=== PATIENT | male | born 1945 | race Caucasian/White ===

== ENCOUNTER 2016-08-26 09:05 | Emergency (ER) | payer OTHER ==
[2016-08-26 09:31] VITALS: RESP 18; TEMP 97.3
[2016-08-26] MEDS ORDERED: Sodium Chloride 0.9% 1,000 ML PRIMARY IV ONE (09:35)
[2016-08-26] MEDS ORDERED: NORMAL SALINE 10 ML SYRINGE FLUSH IVP PRN (09:35)
--- NOTE | 2016-08-26 09:45 | PDOC ---
General Adult HPI - General Chief Complaint: Nausea / Vomiting / Diarrhea Stated Complaint: DIARRHEA Date Seen by Provider: 08/26/16 Time Seen by Provider: 09:30 Source: POSITIVE: Patient Exam Limitations: POSITIVE: No limitations Nurse's Notes Reviewed & Considered: Yes - History of Present Illness Initial Comment: The patient is a 71-year-old male who presents to the emergency department with worsening diarrhea, abdominal pain and significant weight loss. He reports for the past year or so he has had problems with loose stool and diarrhea. He also has had a markedly diminished appetite. He states anytime he eats or drinks anything he has pain primarily in the left upper quadrant and then usually has significant diarrhea. He has been worked up for this some as an outpatient however at this point had not agreed to pursue an upper/lower GI. He has had several rounds of blood work. He thought initially that the symptoms were related to some of the medications that he was taking and some of these were discontinued and cut back. He currently takes metoprolol and lisinopril for blood pressure and metformin 500 mg twice a day for diabetes. He admits that he does not check his blood sugars at home. His last hemoglobin A1c last week was 6.1. He does report taking a baby aspirin daily. For the past couple of weeks he has been taking a probiotic. He has noticed that his stool has been darker since starting on that. He denies any associated urinary symptoms. He has not had any associated nausea or vomiting. He has had previous appendectomy a long time ago. Denies any other abdominal surgeries. He does not have any known history of ulcers or gastritis. He states that he previously drank a large amount of soda including Mountain Dew however has discontinued use of soda for the past 6 months or so. Since onset of the symptoms he has lost approximately 130 pounds stating that he previously weighed about 280. He denies any fevers or chills, chest pain or shortness of breath or neurologic symptoms. He does report increased generalized weakness and fatigue however denies lightheadedness. Have you received a tetanus shot in the past 10 years?: Yes - Patient Home Medications Home Medications: Home Medications Aspirin [Aspir 81] 81 mg PO DAILY tab 12/14/14 Lisinopril 40 mg PO QD #90 tab 06/26/16 Metformin HCl 1 tab PO BID #180 tab 06/26/16 - Patient Allergies Allergies/Adverse Reactions: Allergies Allergy/AdvReac Type Severity Reaction Status Date / Time No Known Allergies Allergy Verified 08/26/16 09:20 Past Medical History - heen HEENT History: Denies History Cardiovascular History: Hypertension, Arrhythmia, Hyperlipidemia, Other (please comment) Additional Cardiovasular History: AFIB Respiratory History: Denies History Gastrointestinal History: Other (please comment) Additional Gastrointestinal History: CHRONIC DIARRHEA FOR CLOSE TO ONE YEAR Genitourinary History: Denies History Endocrine History: Type 2 Diabetes (oral) Musculoskeletal History: Other (please comment) Additional Musculoskeletal History: SH[place]PNEL FROM [place] Neurological History: Denies History Blood Disorders: Denies History Psychiatric History: Denies History History of Sexually Transmitted Diseases: No Male Reproductive History: Denies History Cancer History: Denies History In Past Year Been Physically Harmed or Verbally Threatened: No History of MDRO: No Tobacco Use: Never Smoker Alcohol Use: None Substance Use Type: None Previous Surgical History: Yes Type / Date of Surgery: APPY. TONSILS AND ADENOIDS Significant Family History: No pertinent family hx Past Medical History Reviewed: Reviewed - No Changes ROS - Limitations ROS Limitations: No Limitations Constitution: REPORTS: Weakness (Generalized), Weight Loss (130 pound weight loss over the past year). DENIES: Chills, Fever Cardiovascular: DENIES: Chest Pain, Heart Palpitations, Edema Respiratory: REPORTS: Denies Resp Symptoms Neurological: REPORTS: Denies Neuro Symptoms Gastrointestinal: REPORTS: Abdominal Pain, Nausea, Diarrhea, Black Stools ( Darker stools the past couple of weeks). DENIES: Vomitting, Bloody Stools Endocrine: REPORTS: Fatigue Musculoskeletal: REPORTS: Denies MS Symptoms Genitourinary: REPORTS: Denies Symptoms Eyes: REPORTS: Denies Symptoms ENT: REPORTS: Denies Symptoms Skin: DENIES: Rash General Adult Exam - General Appearance General Appearance: POSITIVE: Alert, Cooperative, No Acute Distress - HEENT HEENT: POSITIVE: Head Inspection Nml, Eyes Inspection Nml, Ears Inspection Nml, Pharynx Inspect. Nml, Dry Mucous Membranes - Neck Neck: POSITIVE: Normal Inspection, Lymphadenopathy - Respiratory Respiratory: POSITIVE: No Respiratory Distress, Breath Sounds Normal - Cardiovascular Cardiovascular: POSITIVE: Regular Rate & Rhythm, No Murmur Peripheral Pulses: Dorsalis-pedis (R): 2+, Dorsalis-pedis (L): 2+ - Abdomen Abdomen: Soft: (All Quadrants), No Guarding: (All Quadrants), No Rebound: (All Quadrants), No Palpabale Mass: (All Quadrants), No Distention: (All Quadrants) Additional Abdominal Details: He does have some tenderness in the left upper quadrant without guarding or rebound tenderness, no palpable mass - Back Back: POSITIVE: Normal Inspection - Skin Skin: POSITIVE: Normal Color, No Rash - Extremities Extremity: Normal ROM: (All Extremities), Normal Inspection: (All Extremities) - Neurological / Psychological Neurological: 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 He also has incidental cholelithiasis per radiologist. Lab Results Reviewed: Yes Lab Results:: Laboratory Results 08/26/16 Range/Units 09:53 WBC 10.22 (4.8-10.8) 10^3/uL RBC 4.57 L (4.70-6.10) 10^6/uL Hgb 12.6 L (14.0-18.0) g/dL Hct 38.8 L (42.0-52.0) % MCV 84.9 (80-90) FL MCH 27.6 (27-31) PG MCHC 32.5 L (33-37) g/dL RDW Std Deviation 44.0 (39-50) fL RDW Coeff of Antonio 14.5 (11.5-14.5) % Plt Count 173 (140-350) 10*3/uL MPV 10.7 (7.4-12.2) FL Immature Gran % (Auto) 0.2 (0-5) % Neut % (Auto) 76.6 (50-80) % Lymph % (Auto) 16.4 (10-50) % [place] % (Auto) 6.2 (5-15) % Eos % (Auto) 0.3 (0-8) % Baso % (Auto) 0.3 (0-1) % Immature Gran # (Auto) 0.02 10*3/UL Neut # (Auto) 7.83 10*3/UL Lymph # (Auto) 1.68 10*3/uL [place] # (Auto) 0.63 (0.3-0.8) 10*3/UL Eos # (Auto) 0.03 10*3/UL Baso # (Auto) 0.03 10*3/UL WBC Morphology Comment Normal morphology (NORM) Plt Morphology Comment Normal morphology (NORM) RBC Morph Comment Normal morphology (NORM) Sodium 143 (135-145) meq/L Potassium 3.3 L (3.8-5.2) meq/L Chloride 103 (98-112) meq/L Carbon Dioxide 27 (23-33) meq/L Anion Gap 13 (5-20) BUN 17 (7-22) mg/dL Creatinine 0.9 (0.70-1.50) mg/dL Estimated GFR > 60 (>60 ml/min/1.73m(2)) BUN/Creatinine Ratio 18.88 (6-20) Glucose 137 H (78-110) mg/dL Calculated Osmolality 299.0 H (267-292) mOsm/kg Calcium 9.5 (8.7-10.7) mg/dL Magnesium 1.8 (1.6-2.4) mg/dL Total Bilirubin 1.3 H (0.3-1.2) mg/dL AST 20 L (21-57) IU/L ALT 25 (21-72) IU/L Alkaline Phosphatase 185 H (38-126) IU/L C-Reactive Protein 5.6 H (0.0-0.9) mg/dL Total Protein 8.3 H (6.1-8.0) g/dL Albumin 4.0 (3.5-4.8) g/dL Globulin 4.3 H (2.50-4.10) g/dL Albumin/Globulin Ratio 0.90 L (1.3-2.0) mg/g Amylase 38 (30-110) U/L Lipase 101 (23-300) IU/L - Patient's Progress MDM / ED Course: An IV was established and he did receive a 1 L bolus of normal saline as well as Protonix [address] and laboratory findings were discussed with the patient and his family. Unfortunately the CT scan of his abdomen and pelvis reveals a fairly large mass in the distal sigmoid colon as well as multiple lesions in the liver concerning for metastatic colon cancer. Dr. Jeter was consulted and evaluated the patient here in the emergency room and made arrangements for him to have endoscopy tomorrow for biopsy/definitive diagnosis. The patient is advised return to the emergency room if he develops increased abdominal pain, vomiting, fever, blood in the stool, any worsening or change in symptoms. Return to the hospital tomorrow for flexible sigmoidoscopy with Dr. Jeter as per his instructions. - Consult Counseled: POSITIVE: Patient, Family, RE: Lab Results, RE: Radiology Results, RE : DX, RE: Need for F/U Patient Care Time - Estimated PCT Patient Care Time (In Minutes): 50 Vital Signs - Recent Vital Signs Vital Signs: Vital Signs (Last 8 hours) Temp Pulse Resp BP Pulse Ox 08/26/16 09:23 97.3 F 81 18 149/101 96 - VS Reviewed Vital Signs Reviewed: Yes Discharge Clinical Impression: Diarrhea, Weight loss, Mass of colon Condition: Fair Patient Instructions Given at Discharge: Chronic Diarrhea (ED) Additional Instructions: The CAT scan done today of the abdomen and pelvis does reveal a mass in the lower part of the colon with multiple lesions seen in the liver as well. Most likely this represents a colon cancer with spread to the liver however definitive diagnosis will only come after biopsy. Return for flexible sigmoidoscopy per Dr. Jeter's instruction tomorrow. Return to the emergency room if increased abdominal pain, vomiting, fever, dehydration, blood in the stool, any worsening or change in symptoms. Follow Up With: LAM HUANG [Primary Care Provider] -
[2016-08-26 09:57] LABS: BASOPHILS # (AUTO) 0.03 10*3/UL; BASOPHILS % (AUTO) 0.3 % (0-1); EOSINOPHILS % (AUTO) 0.3 % (0-8); HEMATOCRIT 38.8 % (42.0-52.0); HEMOGLOBIN 12.6 g/dL (14.0-18.0); IMM GRAN % (AUTO) 0.2 % (0-5); IMM GRAN# (AUTO) 0.02 10*3/UL; LYMPHOCYTES # (AUTO) 1.68 10*3/uL; LYMPHOCYTES % (AUTO) 16.4 % (10-50); MEAN CORPUSCULAR HEMOGLOBIN 27.6 PG (27-31); MEAN CORPUSCULAR HGB CONC 32.5 g/dL (33-37); MEAN PLATELET VOLUME 10.7 FL (7.4-12.2); MONOCYTES # (AUTO) 0.63 10*3/UL (0.3-0.8); MONOCYTES % (AUTO) 6.2 % (5-15); NEUTROPHILS # (AUTO) 7.83 10*3/UL; NEUTROPHILS % (AUTO) 76.6 % (50-80); RDW COEFFICIENT OF VARIATION 14.5 % (11.5-14.5); RED BLOOD COUNT 4.57 10^6/uL (4.70-6.10); WHITE BLOOD COUNT 10.22 10^3/uL (4.8-10.8)
[2016-08-26] MEDS: Pantoprazole Inj 40 MG in Normal Saline Flush 10 ML IVP ONE ×2 (09:57→12:22)
[2016-08-26 10:09] LABS: PLATELET MORPHOLOGY COMMENT NORMAL MORPHOLOGY (NORM)
[2016-08-26 10:12] LABS: AMYLASE 38 U/L (30-110); ASPARTATE AMINO TRANSFERASE 20 IU/L (21-57); BILIRUBIN,TOTAL 1.3 mg/dL (0.3-1.2); BLOOD UREA NITROGEN 17 mg/dL (7-22); BUN/CREATININE RATIO 18.88 (6-20); C-REACTIVE PROTEIN 5.6 mg/dL (0.0-0.9); CALCIUM 9.5 mg/dL (8.7-10.7); CHLORIDE 103 meq/L (98-112); CREATININE 0.9 mg/dL (0.70-1.50); EST GLOMERULAR FILTRATION > 60 (>60 ml/min/1.73m(2)); GLUCOSE 137 mg/dL (78-110); MAGNESIUM 1.8 mg/dL (1.6-2.4); POTASSIUM 3.3 meq/L (3.8-5.2); SODIUM 143 meq/L (135-145); TOTAL PROTEIN 8.3 g/dL (6.1-8.0)
--- NOTE | 2016-08-26 11:12 | DI ---
CT ABD W/CN AND PELVIS W/CN,08/26/2016 9:36 AM: Clinical History: Abdominal pain, diarrhea and 130 pound weight loss Previous Exam: None at this facility. Findings: Multiple helically acquired CT images are obtained through the abdomen and pelvis following the admin istration of 75 cc of Isovue 300, and demonstrate multiple hepatic lesions consistent with metastatic disease. There are multiple stones within the gallbladder. There is a simple cyst involving the inferior pole of the right kidney. Left kidney is normal. The ad renals and pancreas are normal. The spleen is also normal. The lung bases are clear. There is a large mass within the distal sigmoid colon and a large amount of stool throughout the prox imal colon. The urinary bladder is unremarkable. Skeletal structures are also unremarkable. Impression: Large mass within the distal sigmoid colon with multiple hepatic metastases. This is most consistent with metastatic colon cancer. Cholelithiasis.
--- NOTE | 2016-08-26 12:30 | MINORPROC ---
Outpatient History & Physical Chief Complaint: Patient's had 120 pound weight loss over last year. Also having diarrhea. Present Illness: Patient has significant weight loss. He's also been having loose stools over a year. Patient had a CT scan that shows metastatic liver disease with a mass in the sigmoid rectum area. This is near obstructing. Past History: Hypertension, diabetes History: General: WNL, HEENT: WNL, Respiratory: WNL, Cardiovascular: WNL Physical Exam: General: WNL, Heart: WNL, Abdomen: WNL Home Medications: Home Medications Medication Instructions Recorded Confirmed Type Aspirin [Aspir 81] 81 mg PO DAILY tab 12/14/14 08/26/16 History Lisinopril 40 mg PO QD #90 tab 06/26/16 08/26/16 Clinic Metformin HCl 1 tab PO BID #180 tab 06/26/16 08/26/16 Clinic Allergies/Adverse Reactions: Allergies Allergy/AdvReac Type Severity Reaction Status Date / Time No Known Allergies Allergy Verified 08/26/16 09:20 Impression / Plan: The patient will need a colonoscopy. The risks of the procedure and benefits were discussed with the patient. I have discussed the pathophysiology between polyps and colon cancer. I also discussed the reasons why we use a colonoscopy for screening method versus the other screening methods are available. The patient like to proceed with a colonoscopy, The procedure reset up at first available date. Transfusion: Transfusion Not Anticipated Anesthesia Plans: None ASA Class: Class 4 :Severe Systemic Disease a Constant Threat to Life
[2016-08-28 14:05] LABS: PARASITIC EXAM FIN 1143 (())
== END 2016-08-26 11:22 | disposition home or self-care (01) ==
LOC: ER 09:05
DX: C18.9 Malignant neoplasm of colon, unspecified (principal); R63.4 Abnormal weight loss; R10.12 Left upper quadrant pain; R19.7 Diarrhea, unspecified; R53.1 Weakness; E11.9 Type 2 diabetes mellitus without complications
CPT/HCPCS: 74177; 80053; 82150; 83690; 83735; 85025; 86140; 87046; 87177; 87209; 87328; 87329; 87493; 96361; 96374; 99283; J3490; J7030

== ENCOUNTER 2016-08-27 10:20 | Day surgery (SDC) | payer OTHER ==
[~2016-08-27 10:20] MED LIST: Fleet Enema 133ml RECTAL ONE; LIDOCAINE W/ SODIUM BICARB 0.5 ML SYR ONE; Lactated Ringers 0 ML PRIMARY IV ONE
[2016-08-27 11:06] VITALS: RESP 16
[2016-08-27] MEDS ORDERED: LIDOCAINE W/ SODIUM BICARB 0.5 ML SYR ONE (11:11)
[2016-08-27] MEDS ORDERED: Lactated Ringers 1,000 ML PRIMARY IV ONE (11:12)
--- NOTE | 2016-08-27 11:39 | GEN.OPNOTE ---
Colonoscopy Procedure Note Surgery Date: 08/27/16 Preoperative Diagnosis: Metastatic colon cancer Postoperative Diagnosis: Metastatic rectal cancer Procedure: Flexible sigmoidoscopy with biopsies Surgeon: Abdullahi Jetre MD Anesthesia Type: None Indications: Patient comes in with weight loss and diarrhea. CT scan shows a rectal mass and metastatic liver disease Findings: Rectum : Patient has a mass that edges at 12 cm maker rectal mass. This is a circumferential lesion I never could really identify a lumen because of the bulkiness of the tumor. Biopsies taken Digital Rectal Exam : Patient has what appears be a rectal stricture
[2016-08-27 12:55] VITALS: TEMP 97.5
== END 2016-08-27 12:20 | disposition home or self-care (01) ==
LOC: SDSC 10:20
PROVIDERS: ATTEND Surgery
DX: C18.7 Malignant neoplasm of sigmoid colon (principal); D12.7 Benign neoplasm of rectosigmoid junction; R63.4 Abnormal weight loss; R19.7 Diarrhea, unspecified
CPT/HCPCS: 36415; 82378; 82565; J7120

== ENCOUNTER 2016-08-31 12:25 | Inpatient (IN) | payer OTHER ==
[2016-08-31] MEDS ORDERED: Sodium Chloride 0.9% 1,000 ML PRIMARY IV ONE ×2 (13:02→15:20)
[2016-08-31] MEDS ORDERED: NORMAL SALINE 10 ML SYRINGE FLUSH IVP PRN ×2 (13:02→17:39)
[2016-08-31 13:35] LABS: BASOPHILS # (AUTO) 0.02 10*3/UL; BASOPHILS % (AUTO) 0.1 % (0-1); EOSINOPHILS % (AUTO) 0 % (0-8); HEMATOCRIT 35.6 % (42.0-52.0); HEMOGLOBIN 11.6 g/dL (14.0-18.0); IMM GRAN % (AUTO) 0.7 % (0-5); IMM GRAN# (AUTO) 0.15 10*3/UL; LYMPHOCYTES # (AUTO) 0.24 10*3/uL; LYMPHOCYTES % (AUTO) 1.1 % (10-50); MEAN CORPUSCULAR HEMOGLOBIN 27.6 PG (27-31); MEAN CORPUSCULAR HGB CONC 32.6 g/dL (33-37); MEAN PLATELET VOLUME 10.6 FL (7.4-12.2); MONOCYTES # (AUTO) 0.44 10*3/UL (0.3-0.8); NEUTROPHILS % (AUTO) 96.1 % (50-80); RDW COEFFICIENT OF VARIATION 14.4 % (11.5-14.5); RED BLOOD COUNT 4.21 10^6/uL (4.70-6.10); WHITE BLOOD COUNT 21.56 10^3/uL (4.8-10.8)
[2016-08-31 13:44] LABS: ASPARTATE AMINO TRANSFERASE 25 IU/L (21-57); BILIRUBIN,TOTAL 1.7 mg/dL (0.3-1.2); BLOOD UREA NITROGEN 21 mg/dL (7-22); CALCIUM 9.2 mg/dL (8.7-10.7); CHLORIDE 104 meq/L (98-112); EST GLOMERULAR FILTRATION > 60 (>60 ml/min/1.73m(2)); GLUCOSE 119 mg/dL (78-110); SODIUM 140 meq/L (135-145); TOTAL PROTEIN 7.2 g/dL (6.1-8.0)
[2016-08-31 13:52] LABS: POTASSIUM 2.5 meq/L (3.8-5.2)
[2016-08-31 13:55] LABS: PLATELET MORPHOLOGY COMMENT NORMAL MORPHOLOGY (NORM)
[2016-08-31 14:21] LABS: BILIRUBIN,URINE MODERATE (NEG); CLARITY,URINE CLEAR (CLEAR); GLUCOSE, URINE (UA) NEGATIVE (NEG); LEUKOCYTE ESTERASE ,URINE NEGATIVE (NEG); NITRATE,URINE POSITIVE (NEG); OCCULT BLOOD,URINE NEGATIVE (NEG); PH,URINE 5.5 (5.0-8.5); PROTEIN,URINE >300 mg/dl (NEG)
[2016-08-31] MEDS ORDERED: POTASSIUM CHLORIDE IV ONE ×3 (14:54→15:26)
[2016-08-31] MEDS ORDERED: SODIUM CHLORIDE 0.9% IV ONE ×2 (14:54)
[2016-08-31 15:00] LABS: URINE SAMPLE TYPE CLEAN CATCH URINE
[2016-08-31 15:01] LABS: BACTERIA,URINE MODERATE; SQUAMOUS EPITHELIAL CELL,UR FEW
[2016-08-31] MEDS ORDERED: Cefepime Inj 2 GM in Sodium Chloride 0.9% 100 ML IV ONE (17:01)
--- NOTE | 2016-08-31 17:04 | DI ---
HISTORY: Elevated white blood cell count. Rule out kidney infection. COMPARISON: None available. TECHNIQUE: Sonographic images were obtained through the renal retroperitoneum and submitted for inte rpretation. 43 images. FINDINGS: The right kidney measures 12.1 cm in length. The left kidney measures 10.6 in length. There is a 3.9 x 3.0 cm anechoic lesion in the upper pole of the right kidney reminiscent of a renal cyst. The urinary bladder is partially distended. There is no hydronephrosis or contour deforming renal mass. Flow pattern appears within normal limits given the limited color interrogation images. IMPRESSION: 1. There is a 3.9 x 3.0 cm anechoic lesion in the upper pole of the right kidney reminiscent of a ishaan al cyst. NOTE: The interpreting Radiologist was not present at the time of ultrasound interrogation.
[2016-08-31] MEDS ORDERED: HEPARIN 5000 UNIT/1 ML SUBCUT SCH (17:39)
[2016-08-31] MEDS ORDERED: HYDROcodone-APAP 5 MG -325 MG TABLET PO PRN (17:39)
[2016-08-31] MEDS ORDERED: ONDANSETRON 4 MG/2 ML VIAL IVP PRN (17:39)
[2016-08-31] MEDS ORDERED: Zolpidem Tab 5 MG TAB PO PRN (17:39)
[2016-08-31] MEDS ORDERED: Cefepime Inj 2 GM in Sodium Chloride 0.9% 100 ML IV SCH (17:45)
[2016-08-31] MEDS ORDERED: Influenza 16-17 Vaccine(4yrs+) 45 MCG/0.5 ML SYRINGE IM ONE (18:10)
[2016-08-31] MEDS ORDERED: Pneumococcal Vacc 13 Syringe 0.5 ML DISP.SYRIN IM SCH (18:15)
--- NOTE | 2016-08-31 20:00 | DI ---
HISTORY: Colon cancer. COMPARISON: None available. TECHNIQUE: Multiple helically acquired CT images were obtained through the chest with contrast. FINDINGS: Examination demonstrates clear lungs. The aorta is unremarkable. Visualized portions of the abdomen demonstrate multiple hepatic hypodensities consistent with metasta tic disease. There are multiple stones layering within the gallbladder. There is no evidence of infiltrate nor effusion. There is no evidence of pulmonary embolism. The thyroid is also unremarkable. Degenerative changes of the thoracic and lumbar spine are seen. IMPRESSION: 1. No evidence of pulmonary mass and no evidence of pulmonary embolism. NOTIFICATION: The above report was sent to Berhane Key in the ER Department on 08/31/2016 at 10:06 PM EST.
[2016-08-31] MEDS: HEPARIN 5000 UNIT/1 ML SUBCUT SCH (20:41)
--- NOTE | 2016-08-31 20:59 | PDOC ---
History and Physical - History of Present Illness History of Present Illness: This very nice 71-year-old gentleman with past medical history significant for diarrhea for one year for which she went to the hospital about a week ago for increased diarrhea abdominal pain and pretty significant weight loss also diminished appetite also has a history of diabetes, and hypertension is lost about 130 pounds and recently had a colonoscopy and a CAT scan of his abdomen and pelvis which really showed a mass with possible metastases to the liver. Supposed to see Dr. brad Woods tomorrow to go over is a biopsy results. This morning around 9:00 he had chills but no increased dysuria or hematuria no cough and his decided that to bring him to the hospital where was diagnosed with urinary tract infection and elevated white count. 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 Past Medical History Medical History: Hypertension, diabetes Surgical History: Colonoscopy with her colon mass Tobacco Use: Never Smoker Substance Use Type: None Medication / Allergies Home Medications: Home Medications Medication Instructions Recorded Confirmed Type Aspirin [Aspir 81] 81 mg PO DAILY tab 12/14/14 08/31/16 History Lisinopril 40 mg PO QD #90 tab 06/26/16 08/31/16 Clinic Metformin HCl 1 tab PO BID #180 tab 06/26/16 08/31/16 Clinic Hydrocodone Bit/Acetaminophen 1 tab PO Q4-6HRSPRN #50 tab 08/27/16 08/31/16 Clinic [Gerry 7.5-325 Tablet] Ibuprofen 400 mg PO Q6H PRN 08/31/16 08/31/16 History Metoprolol Succinate [Toprol XL] 25 mg PO DAILY 08/31/16 08/31/16 History Allergies/Adverse Reactions: Allergies Allergy/AdvReac Type Severity Reaction Status Date / Time No Known Allergies Allergy Verified 08/31/16 18:38 Review of Systems - Review of Systems All Systems: Reviewed & No Additional Complaints Except as Stated - Constitutional Constitutional: REPORTS: Weight Loss, Fever/Chills - Integumentary Integumentary: DENIES: Negative System Review, Rash, Superficial Wound, Laceration, Puncture Wound, Foreign Body, Itching, Dryness, Ulcers, Color Changes, Moles, Hair Loss, Hirsutism, Other, See HPI - Ear/Nose Exam Ear/Nose Exam: DENIES: Negative System Review, Decreased Hearing, Tinnitus, Otalgia, Sinus Pain, Rhinorrhea, Congestion, Anosmia, Epistaxis, Other, See HPI - Respiratory Respiratory: DENIES: Negative System Review, Cough, Sputum, Dyspnea At Rest, Dyspnea with Exertion, Pleuritic Pain, Hemoptysis, Wheezing, Other, See HPI - Gastrointestinal Gastrointestinal / Abdominal: REPORTS: Diarrhea - Neurological Neurologic: DENIES: Negative System Review, Headache, Numbness/Paresthesia, Tremors, Weakness, Seizures, Head Trauma, LOC, Dizziness, Confusion, Memory Loss , Difficulty Walking, Incoordination, Other, See HPI - Psychiatric Psychiatric: DENIES: Anhedonia, Anxiety, Depressed, Hopelessness, Hospitalization, Negative System Review, Other, Panic, Sadness, See HPI, Suicidality, Tearfullness Exam - Vitals Vital Signs: Vital Signs Temperature 97.2 F Temperature Source Temporal Artery Scan Pulse Rate [Pulse Oximeter] 69 Respiratory Rate 20 Blood Pressure [Left Arm] 125/63 Pulse Ox 98 Oxygen Flow Rate 2 Oxygen Delivery Method Nasal Cannula Height 6 ft 2 in Weight 80.286 kg - General General Appearance: POSITIVE: No Acute Distress, Cooperative - Head Head Exam: POSITIVE: Normal Inspection, Normocephalic, Atraumatic - Eye Eye Exam: POSITIVE: Normal Appearance, PERRL, EOMI - Neck Neck Exam: POSITIVE: Normal Inspection - Respiratory Respiratory Exam: POSITIVE: Clear to Auscultation - Bilaterally, Breathing Non Labored, Normal To Percussion, Normal to Percussion and Palpation - Cardiovascular Cardiovascular Exam: POSITIVE: RRR, No Murmur, No Clicks, No Gallops - GI/Abdominal GI/Abdominal Exam: POSITIVE: Normal Bowel Sounds, Non Tender, Non Distended, Soft - Extremities Extremities Exam: POSITIVE: No Clubbing Present, No Edema Present, No Cyanosis Present Results - Labs CBC and BMP: 08/31/16 13:27 08/31/16 13:27 Assessment and Plan - Patient Problems (1) UTI (urinary tract infection) Current Visit: Yes Status: Acute Comment: Urinary cultures and blood cultures start cefepime some broader spectrum until we have some results considering his possible cancer will hydrate aggressively old his metformin (2) Diarrhea Current Visit: No Status: Acute Comment: Chronic for about a year most likely from the cancer (3) Mass of colon Current Visit: No Status: Acute Comment: Abscesses were done Dr. brad Woods will be gone over these results with him he has [facility] [place] [facility] and also for a [facility] scan (4) Weight loss Current Visit: No Status: Acute Comment: And there is cancer also will do a CT scan of his chest
--- NOTE | 2016-08-31 22:51 | PDOC ---
General Adult HPI - General Chief Complaint: General Medical Stated Complaint: WEAKNESS/CHILLS/DIZZY/DIAPHORETIC/COUGH Date Seen by Provider: 08/31/16 Time Seen by Provider: 12:35 Source: POSITIVE: Patient, Spouse, Old records Exam Limitations: POSITIVE: No limitations Nurse's Notes Reviewed & Considered: Yes - History of Present Illness Initial Comment: The patient is a 18-year-old male. He is brought to the emergency room by his . Patient and his states that the patient has had "chills"today and has been running some fever. Patient states that he feels very weak and fatigued. Dizzy. Patient was seen in the emergency room a few days ago for progressive weight loss and weakness. CT scan of the abdomen at that time revealed bowel cancer. The next day the patient saw Dr. Deutsch, surgeon who did a colonoscopy. Biopsies were taken and the patient is scheduled to follow-up with his surgeon tomorrow. He states he plans to get his medical care through the [facility]. Patient has had a prominent weight loss over the past year. Mild cough. No vomiting or diarrhea or rashes or skin changes. Have you received a tetanus shot in the past 10 years?: No Body Location Affected: REPORTS: Other (Fever, chills, malaise, weight loss.) Timing: REPORTS: Abrupt (Fevers and chills fairly abrupt this morning) Duration: <24 hours Severity: Moderate Quality: REPORTS: Other (Patient states that he has over the past few months had intermittent left flank discomfort. CT scan of the abdomen and pelvis with IV contrast done a couple of days ago did not show any renal abnormalities) Context: REPORTS: None Modifying Factors: improves with: Nothing Similar Symptoms Previously: No Recent Care Received: REPORTS: Recently Seen, Treated by MD (As above) Any Prior Injuries Related to Current Complaint?: No - Patient Home Medications Home Medications: Home Medications Aspirin [Aspir 81] 81 mg PO DAILY tab 12/14/14 Lisinopril 40 mg PO QD #90 tab 06/26/16 Metformin HCl 1 tab PO BID #180 tab 06/26/16 Hydrocodone Bit/Acetaminophen [[place] 7.5-325 Tablet] 1 tab PO Q4-6HRSPRN #50 tab 08/27/16 Ibuprofen 400 mg PO Q6H PRN 08/31/16 Metoprolol Succinate [Toprol XL] 25 mg PO DAILY 08/31/16 - Patient Allergies Allergies/Adverse Reactions: Allergies Allergy/AdvReac Type Severity Reaction Status Date / Time No Known Allergies Allergy Verified 08/31/16 18:38 Past Medical History - heen HEENT History: Other (please comment) Additional HEENT History: WEARS GLASSES Cardiovascular History: Hypertension, Arrhythmia, Hyperlipidemia, Other (please comment) Additional Cardiovasular History: AFIB Respiratory History: Denies History Gastrointestinal History: Other (please comment) Additional Gastrointestinal History: CHRONIC DIARRHEA FOR CLOSE TO ONE YEAR Genitourinary History: Denies History Endocrine History: Type 2 Diabetes (oral) Musculoskeletal History: Other (please comment) Additional Musculoskeletal History: SHRAPNEL FROM [place] Neurological History: Denies History Blood Disorders: Denies History Psychiatric History: Denies History History of Sexually Transmitted Diseases: No Cancer History: Colon Cancer Treatment / Date(s) of Treatment: NEWLY DIAGNOSED, NO TREATMENT PLAN OF 08/31/2016 In Past Year Been Physically Harmed or Verbally Threatened: No (PER PATIENT AND ) History of MDRO: No History of Other Communicable Diseases: No Tobacco Use: Never Smoker Alcohol Use: None Substance Use Type: None Previous Surgical History: Yes Type / Date of Surgery: APPENDECTOMY, TONSILLECTOMY, ADENOIDECTOMY, RIGHT DETACHED RETINA REPAIR Anesthesia Reactions: No Malignant Hyperthermia: No Family History of Malignant Hyperthermia: No Significant Family History: Heart disease Past Medical History Reviewed: Reviewed - No Changes ROS - Limitations ROS Limitations: No Limitations Constitution: REPORTS: Chills, Fever, Weakness Cardiovascular: REPORTS: Denies Cardiac Symptoms Respiratory: REPORTS: Denies Resp Symptoms Neurological: REPORTS: Denies Neuro Symptoms Gastrointestinal: REPORTS: Diarrhea Endocrine: REPORTS: Denies Symptoms Musculoskeletal: REPORTS: Denies MS Symptoms Genitourinary: REPORTS: Denies Symptoms Eyes: REPORTS: Denies Symptoms ENT: REPORTS: Denies Symptoms Skin: REPORTS: Denies Skin Symptoms Lympathic: REPORTS: Denies Lympathic Symptoms Immunologic: POSITIVE: Denies Symptoms Psychiatric: POSITIVE: Denies Psych Symptoms General Adult Exam - General Appearance General Appearance: POSITIVE: Alert, Cooperative, No Acute Distress, No Evidence of Trauma - HEENT HEENT: POSITIVE: Head Inspection Nml, Eyes Inspection Nml, Ears Inspection Nml, Nose Inspection Nml, Oral/Dental Inspect. Nml, Pharynx Inspect. Nml, PERRL, EOMI - Pupils Pupil Size: 4 mm: Bilateral (PERRLA) - Neck Neck: POSITIVE: Normal Inspection, Thyroid Normal - Respiratory Respiratory: POSITIVE: No Respiratory Distress, Breath Sounds Normal, Chest Non- Tender - Cardiovascular Cardiovascular: POSITIVE: Regular Rate & Rhythm, No Murmur, No Gallop, PMI Normal Peripheral Pulses: Radial (R): 2+, Radial (L): 2+ - Abdomen Abdomen: Soft: (All Quadrants), Normal Bowel Sounds: (All Quadrants), Denies Tenderness: (All Quadrants), No Splenomegaly: (All Quadrants), No Hepatomegaly: (All Quadrants), No Guarding: (All Quadrants), No Rebound: (All Quadrants), No Palpable Pulse: (All Quadrants), No Palpabale Mass: (All Quadrants), No Distention: (All Quadrants), No Rigidity: (All Quadrants) - Back Back: POSITIVE: Normal Inspection - Skin Skin: POSITIVE: Normal Color, Warm, Dry, No Rash - Extremities Extremity: Non-Tender: (All Extremities), Normal ROM: (All Extremities), Normal Inspection: (All Extremities) - Neurological / Psychological Neurological: POSITIVE: Oriented X3, property assessment monitor Normal As Tested, Motor Normal, Sensation Normal, 5, 6 General Adult Progress - Results Reviewed by me Xrays/CTs/US Reviewed by me: Yes Discussed with Radiologist: No Radiology Findings: Chest x-ray normal by my interpretation; radiologist interpretation pending. Retroperitoneal ultrasound normal except for small right renal cyst. Lab Results Reviewed: Yes (hypokalemia, leukocytosis, urinalysis shows white blood cells and is nitrat) Lab Results:: Laboratory Results 08/31/16 08/31/16 08/31/16 Range/Units 13:27 14:10 15:10 WBC 21.56 H (4.8-10.8) 10^3/uL RBC 4.21 L (4.70-6.10) 10^6/uL Hgb 11.6 L (14.0-18.0) g/dL Hct 35.6 L (42.0-52.0) % MCV 84.6 (80-90) FL MCH 27.6 (27-31) PG MCHC 32.6 L (33-37) g/dL RDW Std Deviation 42.8 (39-50) fL RDW Coeff of [place] 14.4 (11.5-14.5) % Plt Count 142 (140-350) 10*3/uL MPV 10.6 (7.4-12.2) FL Immature Gran % (Auto) 0.7 (0-5) % Neut % (Auto) 96.1 H (50-80) % Lymph % (Auto) 1.1 L (10-50) % [place] % (Auto) 2.0 L (5-15) % Eos % (Auto) 0 (0-8) % Baso % (Auto) 0.1 (0-1) % Immature Gran # (Auto) 0.15 10*3/UL Neut # (Auto) 20.70 10*3/UL Lymph # (Auto) 0.24 10*3/uL [place] # (Auto) 0.44 (0.3-0.8) 10*3/UL Eos # (Auto) 0.01 10*3/UL Baso # (Auto) 0.02 10*3/UL WBC Morphology Comment Normal morphology (NORM) Plt Morphology Comment Normal morphology (NORM) RBC Morph Comment Normal morphology (NORM) Sodium 140 (135-145) meq/L Potassium 2.5 L (3.8-5.2) meq/L Chloride 104 (98-112) meq/L Carbon Dioxide 24 (23-33) meq/L Anion Gap 12 (5-20) BUN 21 (7-22) mg/dL Creatinine 1.0 (0.70-1.50) mg/dL Estimated GFR > 60 (>60 ml/min/1.73m(2)) BUN/Creatinine Ratio 21.00 H (6-20) Glucose 119 H (78-110) mg/dL Calculated Osmolality 293.0 H (267-292) mOsm/kg Lactic Acid 1.2 (0.70-2.10) MMOL/L Calcium 9.2 (8.7-10.7) mg/dL Total Bilirubin 1.7 H (0.3-1.2) mg/dL AST 25 (21-57) IU/L ALT 28 (21-72) IU/L Alkaline Phosphatase 191 H (38-126) IU/L Total Protein 7.2 (6.1-8.0) g/dL Albumin 3.5 (3.5-4.8) g/dL Globulin 3.7 (2.50-4.10) g/dL Albumin/Globulin Ratio 0.90 L (1.3-2.0) mg/g Ur Collection Type Clean catch urine Urine Color [place] Urine Clarity Clear (CLEAR) Urine pH 5.5 (5.0-8.5) Ur Specific [place] 1.025 (1.005-1.030) Urine Protein >300 (NEG) mg/dl Urine Glucose (UA) Negative (NEG) mg/dL Urine Ketones 15 (NEG) Urine Occult Blood Negative (NEG) Urine Nitrate Positive H (NEG) Urine Bilirubin Moderate (NEG) Urine Urobilinogen 4.0 (0.2) EU/dL Ur Leukocyte Esterase Negative (NEG) Urine RBC None (NONE) /hpf Urine WBC 5-10 (NONE) Ur Squamous Epith Cells Few (NONE) Ur Renal Epithelial Cell None (NONE) Urine Crystals None Urine Bacteria Moderate (NONE) Urine Casts Many (NONE) Urine Mucus Many (NONE) Urine Trichomonas None (NONE) Urine Yeast None (NONE) Ur Culture Indicated? Culture set - Patient's Progress Pain Medication Addressed: POSITIVE: Not Applicable School/Work Release Addressed: POSITIVE: Not Applicable Re-Examine Time: 16:00 Re-Examine Comment: Patient states he feels somewhat better after rehydration. Patient begun on potassium replacement in the ER and 2 g Cefapine ordered. Status: POSITIVE: Improved, Re-Examined Antibiotics Given: Yes (cefepime 2 g IV) - Consult Consult (If Yes, Name of Consulting MD & Time Called): Yes (Dr. Lopez, hospitalist [id number],) Consulting MD will see pt:: [place] [facility] [place] Counseled: POSITIVE: Patient, Family, RE: Lab Results, RE: Radiology Results, RE : DX, RE: Need for F/U Patient Care Time - Estimated PCT Patient Care Time (In Minutes): 65 Vital Signs - VS Reviewed Vital Signs Reviewed: Yes Discharge Clinical Impression: UTI (urinary tract infection), Hypokalemia, Malignant neoplasm of colon Discharge Disposition: Admit to Inpatient Condition: Fair Date Decision to Admit to Inpatient: 08/31/16 Time Decision to Admit to Inpatient: 16:00
[2016-08-31] MEDS: Sodium Chloride 0.9% 1,000 ML PRIMARY IV SCH (23:23)
[2016-09-01] MEDS: Cefepime Inj 2 GM in Sodium Chloride 0.9% 100 ML IV SCH ×3 (03:22→20:41)
[2016-09-01] MEDS: HEPARIN 5000 UNIT/1 ML SUBCUT SCH ×2 (03:22→21:31)
[2016-09-01 07:09] LABS: HEMOGLOBIN 10.1 g/dL (14.0-18.0)
[2016-09-01 07:15] LABS: BASOPHILS # (AUTO) 0.03 10*3/UL; BASOPHILS % (AUTO) 0.2 % (0-1); EOSINOPHILS % (AUTO) 0.4 % (0-8); HEMATOCRIT 31.3 % (42.0-52.0); IMM GRAN % (AUTO) 0.2 % (0-5); IMM GRAN# (AUTO) 0.03 10*3/UL; LYMPHOCYTES # (AUTO) 0.55 10*3/uL; LYMPHOCYTES % (AUTO) 4.2 % (10-50); MEAN CORPUSCULAR HEMOGLOBIN 27.6 PG (27-31); MEAN CORPUSCULAR HGB CONC 32.3 g/dL (33-37); MEAN PLATELET VOLUME 11.6 FL (7.4-12.2); MONOCYTES # (AUTO) 0.57 10*3/UL (0.3-0.8); MONOCYTES % (AUTO) 4.3 % (5-15); NEUTROPHILS # (AUTO) 11.89 10*3/UL; NEUTROPHILS % (AUTO) 90.7 % (50-80); RDW COEFFICIENT OF VARIATION 14.7 % (11.5-14.5); RED BLOOD COUNT 3.66 10^6/uL (4.70-6.10); WHITE BLOOD COUNT 13.12 10^3/uL (4.8-10.8)
[2016-09-01 07:16] LABS: ASPARTATE AMINO TRANSFERASE 17 IU/L (21-57); BILIRUBIN,TOTAL 1.2 mg/dL (0.3-1.2); BLOOD UREA NITROGEN 22 mg/dL (7-22); BUN/CREATININE RATIO 24.44 (6-20); CALCIUM 8.6 mg/dL (8.7-10.7); CHLORIDE 107 meq/L (98-112); CREATININE 0.9 mg/dL (0.70-1.50); EST GLOMERULAR FILTRATION > 60 (>60 ml/min/1.73m(2)); GLUCOSE 97 mg/dL (78-110); POTASSIUM 2.8 meq/L (3.8-5.2); SODIUM 141 meq/L (135-145); TOTAL PROTEIN 6.4 g/dL (6.1-8.0)
[2016-09-01 07:35] LABS: PLATELET MORPHOLOGY COMMENT SEE COMMENTS (NORM)
[2016-09-01 08:42] LABS: HEMATOCRIT 33.5 % (42.0-52.0); HEMOGLOBIN 10.6 g/dL (14.0-18.0); MEAN CORPUSCULAR HEMOGLOBIN 27.2 PG (27-31); MEAN CORPUSCULAR HGB CONC 31.6 g/dL (33-37); MEAN PLATELET VOLUME 10.5 FL (7.4-12.2); RDW COEFFICIENT OF VARIATION 14.7 % (11.5-14.5); RED BLOOD COUNT 3.9 10^6/uL (4.70-6.10); WHITE BLOOD COUNT 12.2 10^3/uL (4.8-10.8)
--- NOTE | 2016-09-01 08:44 | DI ---
PA /LATERAL CHEST X-RAY, 08/31/2016 2:54 PM : Clinical History: Leukocytosis. Chills. Previous Exam: 08/21/2008. There is no acute soft tissue or bony abnormality. There is a metallic foreign body, probably a metal lic pellet located in the upper portion of the right lateral chest wall, probably in the latissimus d orsi muscle. Heart size is normal. There is no acute infiltrate or effusion. There is centrilobular e mphysema. Mediastinal structures are normal. There are no pulmonary nodules. Degenerative changes are present in the lower thoracic spine with ossification of the anterior longitudinal ligament. Readin. There is no acute infiltrate or effusion. 2. Centrilobular emphysema.
[2016-09-01] MEDS: LISINOPRIL 20 MG TABLET PO SCH (09:19)
[2016-09-01] MEDS: METOPROLOL SUCCINATE 25 MG SR 24H TABLET PO SCH (09:19)
--- NOTE | 2016-09-01 12:18 | PDOC(PROG) ---
Interval History: Patient is doing much better less tired better hydrated no pain Objective : Data - Labs CBC and BMP: 09/01/16 08:40 09/01/16 06:52 Labs - Last 24 Hours: Laboratory Results 09/01/16 09/01/16 Range/Units 06:52 08:40 WBC 13.12 H 12.20 H (4.8-10.8) 10^3/uL RBC 3.66 L 3.90 L (4.70-6.10) 10^6/uL Hgb 10.1 L 10.6 L (14.0-18.0) g/dL Hct 31.3 L 33.5 L (42.0-52.0) % MCV 85.5 85.9 (80-90) FL MCH 27.6 27.2 (27-31) PG MCHC 32.3 L 31.6 L (33-37) g/dL RDW Std Deviation 43.7 44.9 (39-50) fL RDW Coeff of [place] 14.7 H 14.7 H (11.5-14.5) % Plt Count 31 L* 178 (140-350) 10*3/uL MPV 11.6 10.5 (7.4-12.2) FL Immature Gran % (Auto) 0.2 (0-5) % Neut % (Auto) 90.7 H (50-80) % Lymph % (Auto) 4.2 L (10-50) % [place] % (Auto) 4.3 L (5-15) % Eos % (Auto) 0.4 (0-8) % Baso % (Auto) 0.2 (0-1) % Immature Gran # (Auto) 0.03 10*3/UL Neut # (Auto) 11.89 10*3/UL Lymph # (Auto) 0.55 10*3/uL [place] # (Auto) 0.57 (0.3-0.8) 10*3/UL Eos # (Auto) 0.05 10*3/UL Baso # (Auto) 0.03 10*3/UL WBC Morphology Comment Normal morphology (NORM) Plt Morphology Comment See comments (NORM) RBC Morph Comment Normal morphology (NORM) Sodium 141 (135-145) meq/L Potassium 2.8 L (3.8-5.2) meq/L Chloride 107 (98-112) meq/L Carbon Dioxide 23 (23-33) meq/L Anion Gap 11 (5-20) BUN 22 (7-22) mg/dL Creatinine 0.9 (0.70-1.50) mg/dL Estimated GFR > 60 (>60 ml/min/1.73m(2)) BUN/Creatinine Ratio 24.44 H (6-20) Glucose 97 (78-110) mg/dL Calculated Osmolality 294.0 H (267-292) mOsm/kg Calcium 8.6 L (8.7-10.7) mg/dL Total Bilirubin 1.2 (0.3-1.2) mg/dL AST 17 L (21-57) IU/L ALT 26 (21-72) IU/L Alkaline Phosphatase 140 H (38-126) IU/L Total Protein 6.4 (6.1-8.0) g/dL Albumin 2.9 L (3.5-4.8) g/dL Globulin 3.5 (2.50-4.10) g/dL Albumin/Globulin Ratio 0.80 L (1.3-2.0) mg/g Objective : Exam - General General Appearance: Cooperative - Respiratory Respiratory Exam: Clear to Auscultation - Bilaterally, Breathing Non Labored, Normal To Percussion - Cardiovascular Cardiovascular Exam: RRR, No Murmur, No Clicks - GI/Abdominal GI/Abdominal Exam: Non Distended, Soft - Extremities Extremities Exam: No Clubbing Present, No Edema Present Assessment and Plan - Patient Problems (1) UTI (urinary tract infection) Current Visit: Yes Status: Acute Comment: Continue medication improving await cultures (2) Diarrhea Current Visit: No Status: Acute Comment: Stable (3) Mass of colon Current Visit: No Status: Acute Comment: Dr. brad Woods will come to talk to the patient today around 1:30 (4) Weight loss Current Visit: No Status: Acute Comment: The contrary to cancer
[2016-09-01] MEDS: Sodium Chloride 0.9% 1,000 ML PRIMARY IV SCH (12:45)
[2016-09-01] MEDS: Sodium Chloride 0.9% 1,000 ML with Multivitamin Inj 10 ML, Thiamine Inj 100 MG, Folic A... IV SCH ×5 (13:30)
[2016-09-01] MEDS ORDERED: THIAMINE 100 MG/1 ML - 2 ML ONE (23:54)
[2016-09-01] MEDS ORDERED: MVI, ADULT NO.1 WITH VIT K 10 ML VIAL IV ONE (23:54)
[2016-09-01] MEDS ORDERED: FOLIC ACID 5 MG/1 ML - 10 ML ONE (23:54)
[2016-09-01] MEDS ORDERED: Sodium Chloride 0.9% 1,000 ML ONE (23:54)
[2016-09-02] MEDS ORDERED: Magnesium Sulfate 2gm (Premix) 50 ML IV ONE (00:03)
[2016-09-02] MEDS: Cefepime Inj 2 GM in Sodium Chloride 0.9% 100 ML IV SCH (03:13)
[2016-09-02] MEDS: HEPARIN 5000 UNIT/1 ML SUBCUT SCH ×2 (03:14→14:35)
[2016-09-02 06:07] LABS: BASOPHILS # (AUTO) 0.02 10*3/UL; BASOPHILS % (AUTO) 0.2 % (0-1); IMM GRAN % (AUTO) 0.2 % (0-5); IMM GRAN# (AUTO) 0.02 10*3/UL
[2016-09-02 06:14] LABS: ASPARTATE AMINO TRANSFERASE 24 IU/L (21-57); BILIRUBIN,TOTAL 0.7 mg/dL (0.3-1.2); BLOOD UREA NITROGEN 14 mg/dL (7-22); CALCIUM 8.3 mg/dL (8.7-10.7); CHLORIDE 106 meq/L (98-112); CREATININE 0.8 mg/dL (0.70-1.50); EST GLOMERULAR FILTRATION > 60 (>60 ml/min/1.73m(2)); GLUCOSE 115 mg/dL (78-110); POTASSIUM 2.7 meq/L (3.8-5.2); SODIUM 140 meq/L (135-145); TOTAL PROTEIN 6.2 g/dL (6.1-8.0)
[2016-09-02 06:17] LABS: EOSINOPHILS % (AUTO) 1.2 % (0-8); HEMATOCRIT 31.1 % (42.0-52.0); HEMOGLOBIN 9.9 g/dL (14.0-18.0); LYMPHOCYTES % (AUTO) 8.7 % (10-50); MEAN CORPUSCULAR HGB CONC 31.8 g/dL (33-37); MEAN PLATELET VOLUME 11.6 FL (7.4-12.2); MONOCYTES # (AUTO) 0.77 10*3/UL (0.3-0.8); MONOCYTES % (AUTO) 8.3 % (5-15); NEUTROPHILS # (AUTO) 7.52 10*3/UL; NEUTROPHILS % (AUTO) 81.4 % (50-80); RDW COEFFICIENT OF VARIATION 14.3 % (11.5-14.5); RED BLOOD COUNT 3.66 10^6/uL (4.70-6.10); WHITE BLOOD COUNT 9.24 10^3/uL (4.8-10.8)
[2016-09-02 06:52] LABS: PLATELET MORPHOLOGY COMMENT NORMAL MORPHOLOGY (NORM)
[2016-09-02] MEDS ORDERED: Sodium Chloride 0.9% 1,000 ML, Magnesium Sulfate 2gm (Premix) 50 ML with Multivitamin I... IV ONE ×5 (07:48)
[2016-09-02] MEDS: Sodium Chloride 0.9% 1,000 ML with Multivitamin Inj 10 ML, Thiamine Inj 100 MG, Folic A... IV SCH ×10 (08:11→18:02)
[2016-09-02] MEDS: LISINOPRIL 20 MG TABLET PO SCH (09:04)
[2016-09-02] MEDS: METOPROLOL SUCCINATE 25 MG SR 24H TABLET PO SCH (09:05)
[2016-09-02] MEDS: POTASSIUM CHLORIDE 20 MEQ TAB PO SCH ×2 (09:05→20:46)
[2016-09-02 09:35] LABS: BASOPHILS # (AUTO) 0.03 10*3/UL; BASOPHILS % (AUTO) 0.4 % (0-1); EOSINOPHILS % (AUTO) 0.6 % (0-8); HEMOGLOBIN 10.3 g/dL (14.0-18.0); IMM GRAN % (AUTO) 0.2 % (0-5); IMM GRAN# (AUTO) 0.02 10*3/UL; LYMPHOCYTES # (AUTO) 0.81 10*3/uL; MEAN CORPUSCULAR HEMOGLOBIN 27.2 PG (27-31); MEAN CORPUSCULAR HGB CONC 32.2 g/dL (33-37); MEAN PLATELET VOLUME 11.3 FL (7.4-12.2); MONOCYTES # (AUTO) 0.52 10*3/UL (0.3-0.8); MONOCYTES % (AUTO) 6.5 % (5-15); NEUTROPHILS # (AUTO) 6.63 10*3/UL; NEUTROPHILS % (AUTO) 82.3 % (50-80); RDW COEFFICIENT OF VARIATION 14.4 % (11.5-14.5); RED BLOOD COUNT 3.78 10^6/uL (4.70-6.10); WHITE BLOOD COUNT 8.06 10^3/uL (4.8-10.8)
[2016-09-02 09:36] LABS: PLATELET MORPHOLOGY COMMENT NORMAL MORPHOLOGY (NORM)
--- NOTE | 2016-09-02 13:01 | DCSUMMARY ---
Hospitalization Summary Hospital Course: Final Discharge Diagnosis: Current Visit Problems Problem Status Priority Diagnosed Code Colon cancer Acute C18.9 Hypokalemia Acute E87.6 UTI (urinary tract infection) Acute N39.0 Diagnostic Data, Laboratory Data, and Procedures of Signifigance: Laboratory Results 08/31/16 08/31/16 08/31/16 Range/Units 13:27 14:10 15:10 WBC 21.56 H (4.8-10.8) 10^3/uL RBC 4.21 L (4.70-6.10) 10^6/uL Hgb 11.6 L (14.0-18.0) g/dL Hct 35.6 L (42.0-52.0) % MCV 84.6 (80-90) FL MCH 27.6 (27-31) PG MCHC 32.6 L (33-37) g/dL RDW Std Deviation 42.8 (39-50) fL RDW Coeff of [place] 14.4 (11.5-14.5) % Plt Count 142 (140-350) 10*3/uL MPV 10.6 (7.4-12.2) FL Immature Gran % (Auto) 0.7 (0-5) % Neut % (Auto) 96.1 H (50-80) % Lymph % (Auto) 1.1 L (10-50) % [place] % (Auto) 2.0 L (5-15) % Eos % (Auto) 0 (0-8) % Baso % (Auto) 0.1 (0-1) % Immature Gran # (Auto) 0.15 10*3/UL Neut # (Auto) 20.70 10*3/UL Lymph # (Auto) 0.24 10*3/uL [place] # (Auto) 0.44 (0.3-0.8) 10*3/UL Eos # (Auto) 0.01 10*3/UL Baso # (Auto) 0.02 10*3/UL WBC Morphology Comment Normal morphology (NORM) Plt Morphology Comment Normal morphology (NORM) RBC Morph Comment Normal morphology (NORM) Sodium 140 (135-145) meq/L Potassium 2.5 L (3.8-5.2) meq/L Chloride 104 (98-112) meq/L Carbon Dioxide 24 (23-33) meq/L Anion Gap 12 (5-20) BUN 21 (7-22) mg/dL Creatinine 1.0 (0.70-1.50) mg/dL Estimated GFR > 60 (>60 ml/min/1.73m(2)) BUN/Creatinine Ratio 21.00 H (6-20) Glucose 119 H (78-110) mg/dL Calculated Osmolality 293.0 H (267-292) mOsm/kg Lactic Acid 1.2 (0.70-2.10) MMOL/L Calcium 9.2 (8.7-10.7) mg/dL Magnesium (1.6-2.4) mg/dL Total Bilirubin 1.7 H (0.3-1.2) mg/dL AST 25 (21-57) IU/L ALT 28 (21-72) IU/L Alkaline Phosphatase 191 H (38-126) IU/L Total Protein 7.2 (6.1-8.0) g/dL Albumin 3.5 (3.5-4.8) g/dL Globulin 3.7 (2.50-4.10) g/dL Albumin/Globulin Ratio 0.90 L (1.3-2.0) mg/g Ur Collection Type Clean catch urine Urine Color [place] Urine Clarity Clear (CLEAR) Urine pH 5.5 (5.0-8.5) Ur Specific [place] 1.025 (1.005-1.030) Urine Protein >300 (NEG) mg/dl Urine Glucose (UA) Negative (NEG) mg/dL Urine Ketones 15 (NEG) Urine Occult Blood Negative (NEG) Urine Nitrate Positive H (NEG) Urine Bilirubin Moderate (NEG) Urine Urobilinogen 4.0 (0.2) EU/dL Ur Leukocyte Esterase Negative (NEG) Urine RBC None (NONE) /hpf Urine WBC 5-10 (NONE) Ur Squamous Epith Cells Few (NONE) Ur Renal Epithelial Cell None (NONE) Urine Crystals None Urine Bacteria Moderate (NONE) Urine Casts Many (NONE) Urine Mucus Many (NONE) Urine Trichomonas None (NONE) Urine Yeast None (NONE) Ur Culture Indicated? Culture set 09/01/16 09/01/16 09/02/16 Range/Units 06:52 08:40 05:22 WBC 13.12 H 12.20 H 9.24 (4.8-10.8) 10^3/uL RBC 3.66 L 3.90 L 3.66 L (4.70-6.10) 10^6/uL Hgb 10.1 L 10.6 L 9.9 L (14.0-18.0) g/dL Hct 31.3 L 33.5 L 31.1 L (42.0-52.0) % MCV 85.5 85.9 85.0 (80-90) FL MCH 27.6 27.2 27.0 (27-31) PG MCHC 32.3 L 31.6 L 31.8 L (33-37) g/dL RDW Std Deviation 43.7 44.9 43.1 (39-50) fL RDW Coeff of [place] 14.7 H 14.7 H 14.3 (11.5-14.5) % Plt Count 31 L* 178 28 L* (140-350) 10*3/uL MPV 11.6 10.5 11.6 (7.4-12.2) FL Immature Gran % (Auto) 0.2 0.2 (0-5) % Neut % (Auto) 90.7 H 81.4 H (50-80) % Lymph % (Auto) 4.2 L 8.7 L (10-50) % [place] % (Auto) 4.3 L 8.3 (5-15) % Eos % (Auto) 0.4 1.2 (0-8) % Baso % (Auto) 0.2 0.2 (0-1) % Immature Gran # (Auto) 0.03 0.02 10*3/UL Neut # (Auto) 11.89 7.52 10*3/UL Lymph # (Auto) 0.55 0.80 10*3/uL [place] # (Auto) 0.57 0.77 (0.3-0.8) 10*3/UL Eos # (Auto) 0.05 0.11 10*3/UL Baso # (Auto) 0.03 0.02 10*3/UL WBC Morphology Comment Normal morphology Normal morphology (NORM) Plt Morphology Comment See comments Normal morphology (NORM) RBC Morph Comment Normal morphology Normal morphology (NORM) Sodium 141 140 (135-145) meq/L Potassium 2.8 L 2.7 L (3.8-5.2) meq/L Chloride 107 106 (98-112) meq/L Carbon Dioxide 23 26 (23-33) meq/L Anion Gap 11 8 (5-20) BUN 22 14 (7-22) mg/dL Creatinine 0.9 0.8 (0.70-1.50) mg/dL Estimated GFR > 60 > 60 (>60 ml/min/1.73m(2)) BUN/Creatinine Ratio 24.44 H 17.50 (6-20) Glucose 97 115 H (78-110) mg/dL Calculated Osmolality 294.0 H 291.0 (267-292) mOsm/kg Lactic Acid (0.70-2.10) MMOL/L Calcium 8.6 L 8.3 L (8.7-10.7) mg/dL Magnesium 2.1 (1.6-2.4) mg/dL Total Bilirubin 1.2 0.7 (0.3-1.2) mg/dL AST 17 L 24 (21-57) IU/L ALT 26 33 (21-72) IU/L Alkaline Phosphatase 140 H 146 H (38-126) IU/L Total Protein 6.4 6.2 (6.1-8.0) g/dL Albumin 2.9 L 2.8 L (3.5-4.8) g/dL Globulin 3.5 3.4 (2.50-4.10) g/dL Albumin/Globulin Ratio 0.80 L 0.80 L (1.3-2.0) mg/g Ur Collection Type Urine Color Urine Clarity (CLEAR) Urine pH (5.0-8.5) Ur Specific [place] (1.005-1.030) Urine Protein (NEG) mg/dl Urine Glucose (UA) (NEG) mg/dL Urine Ketones (NEG) Urine Occult Blood (NEG) Urine Nitrate (NEG) Urine Bilirubin (NEG) Urine Urobilinogen (0.2) EU/dL Ur Leukocyte Esterase (NEG) Urine RBC (NONE) /hpf Urine WBC (NONE) Ur Squamous Epith Cells (NONE) Ur Renal Epithelial Cell (NONE) Urine Crystals Urine Bacteria (NONE) Urine Casts (NONE) Urine Mucus (NONE) Urine Trichomonas (NONE) Urine Yeast (NONE) Ur Culture Indicated? 09/02/16 Range/Units 09:28 WBC 8.06 (4.8-10.8) 10^3/uL RBC 3.78 L (4.70-6.10) 10^6/uL Hgb 10.3 L (14.0-18.0) g/dL Hct 32.0 L (42.0-52.0) % MCV 84.7 (80-90) FL MCH 27.2 (27-31) PG MCHC 32.2 L (33-37) g/dL RDW Std Deviation 43.3 (39-50) fL RDW Coeff of [place] 14.4 (11.5-14.5) % Plt Count 126 L (140-350) 10*3/uL MPV 11.3 (7.4-12.2) FL Immature Gran % (Auto) 0.2 (0-5) % Neut % (Auto) 82.3 H (50-80) % Lymph % (Auto) 10.0 (10-50) % [place] % (Auto) 6.5 (5-15) % Eos % (Auto) 0.6 (0-8) % Baso % (Auto) 0.4 (0-1) % Immature Gran # (Auto) 0.02 10*3/UL Neut # (Auto) 6.63 10*3/UL Lymph # (Auto) 0.81 10*3/uL [place] # (Auto) 0.52 (0.3-0.8) 10*3/UL Eos # (Auto) 0.05 10*3/UL Baso # (Auto) 0.03 10*3/UL WBC Morphology Comment Normal morphology (NORM) Plt Morphology Comment Normal morphology (NORM) RBC Morph Comment Normal morphology (NORM) Sodium (135-145) meq/L Potassium (3.8-5.2) meq/L Chloride (98-112) meq/L Carbon Dioxide (23-33) meq/L Anion Gap (5-20) BUN (7-22) mg/dL Creatinine (0.70-1.50) mg/dL Estimated GFR (>60 ml/min/1.73m(2)) BUN/Creatinine Ratio (6-20) Glucose (78-110) mg/dL Calculated Osmolality (267-292) mOsm/kg Lactic Acid (0.70-2.10) MMOL/L Calcium (8.7-10.7) mg/dL Magnesium (1.6-2.4) mg/dL Total Bilirubin (0.3-1.2) mg/dL AST (21-57) IU/L ALT (21-72) IU/L Alkaline Phosphatase (38-126) IU/L Total Protein (6.1-8.0) g/dL Albumin (3.5-4.8) g/dL Globulin (2.50-4.10) g/dL Albumin/Globulin Ratio (1.3-2.0) mg/g Ur Collection Type Urine Color Urine Clarity (CLEAR) Urine pH (5.0-8.5) Ur Specific [place] (1.005-1.030) Urine Protein (NEG) mg/dl Urine Glucose (UA) (NEG) mg/dL Urine Ketones (NEG) Urine Occult Blood (NEG) Urine Nitrate (NEG) Urine Bilirubin (NEG) Urine Urobilinogen (0.2) EU/dL Ur Leukocyte Esterase (NEG) Urine RBC (NONE) /hpf Urine WBC (NONE) Ur Squamous Epith Cells (NONE) Ur Renal Epithelial Cell (NONE) Urine Crystals Urine Bacteria (NONE) Urine Casts (NONE) Urine Mucus (NONE) Urine Trichomonas (NONE) Urine Yeast (NONE) Ur Culture Indicated? History and Physical pertinent to Admission: Course of Hospitalization: Is a very nice 71-year-old gentleman [place] vet to [place] with past medical history significant for diabetes, and hypertension as of lately patient had over 100 pound weight loss colposcopy was performed by Dr. brad Woods which revealed a colonic mass with metastatic liver disease according to CAT scan biopsies came back as villous adenoma. He was admitted to the hospital for chest fever and chills was treated empirically with cefepime blood cultures are negative and urine cultures are negative as well leukocytosis is resolved patient has been feeling great. I will switch him over to Cipro by mouth today I've also rehydrated him aggressively with banana bags and electrolyte cystically magnesium and potassium. Appointment was arranged for him at [facility] with interventional radiology to have a liver biopsy also has an appointment with the Dr. Clark for further workup evaluation and plan for his colonic mass Dr. brad Woods's talk to the patient and has helped an organizing some of these appointments will follow up with him as an outpatient as well his potassium is still at 2.9 we will keep replacing this and patient will be discharged in the morning patient has family very grateful and he feels 100% better. Also CT scan of the chest revealed the known acute changes. He will be finishing a 7 day course of Cipro total On the date of discharge, the patient was examined: Gen.: No acute distress, alert, nontoxic Heart: Regular rate and rhythm, no murmurs, clicks, gallops, or rubs Lungs: Clear to auscultation bilaterally, breathing is nonlabored Abdomen/GI: Normal tones on auscultation, soft, nontender, nondistended] Musculoskeletal/extremities:[No clubbing, cyanosis, or chandana] Vitals reviewed and are listed below Vital Signs (24 hrs) Temp Pulse Pulse Resp BP Pulse Ox 09/02/16 12:00 98.7 F 75 18 163/89 94 09/02/16 07:02 98 F 67 18 161/85 94 09/02/16 07:00 68 09/02/16 04:38 97.3 F 58 L 19 156/50 95 09/02/16 03:00 58 L 09/02/16 00:37 98.4 F 66 20 154/83 95 09/01/16 23:00 67 09/01/16 20:34 98.7 F 72 20 148/77 94 09/01/16 19:00 72 09/01/16 16:45 98.7 F 82 19 157/88 94 09/01/16 15:00 80 Assessment and Plan: 1. As per discharge assessments above 2. Disposition: Home 3. Condition on discharge, stable and improved. 4. Diet: High calorie low residue 5. Activities: resume normal activities 6. Follow-Up: 1. [PC] 2. 7. Medications at the Time of Discharge: Home Medications Medication Instructions Recorded Confirmed Type Lisinopril 40 mg PO QD #90 tab 06/26/16 09/02/16 Clinic Metformin HCl 1 tab PO BID #180 tab 06/26/16 09/02/16 Clinic Hydrocodone Bit/Acetaminophen 1 tab PO Q4-6HRSPRN #50 tab 08/27/16 09/02/16 Clinic [[place] 7.5-325 Tablet] Metoprolol Succinate [Toprol XL] 25 mg PO DAILY 08/31/16 09/02/16 History Ciprofloxacin [Cipro] 500 mg PO BID #10 ml 09/02/16 Rx 8. Time, care, counseling and coordination of care for this discharge is greater than 30 minutes. Exam - Vitals Vital Signs: Vital Signs Temperature 98.7 F Temperature Source Temporal Artery Scan Pulse Rate [Apical] 68 Pulse Rate [Pulse Oximeter] 75 Pulse Rate 68 Respiratory Rate 18 Blood Pressure [Left Arm] 163/89 Pulse Ox 94 Oxygen Flow Rate 1 Oxygen Delivery Method Room Air Height 6 ft 2 in Weight 79.651 kg Patient Problems - Patient Problem List (1) UTI (urinary tract infection) Current Visit: Yes Status: Acute (2) Diarrhea Current Visit: No Status: Acute (3) Mass of colon Current Visit: No Status: Acute (4) Weight loss Current Visit: No Status: Acute
[2016-09-02 17:59] LABS: BLOOD UREA NITROGEN 12 mg/dL (7-22); BUN/CREATININE RATIO 17.14 (6-20); CALCIUM 8.1 mg/dL (8.7-10.7); CHLORIDE 105 meq/L (98-112); CREATININE 0.7 mg/dL (0.70-1.50); EST GLOMERULAR FILTRATION > 60 (>60 ml/min/1.73m(2)); GLUCOSE 155 mg/dL (78-110); POTASSIUM 2.8 meq/L (3.8-5.2); SODIUM 139 meq/L (135-145)
[2016-09-02] MEDS: CIPROFLOXACIN 500 MG TABLET PO SCH (20:46)
[2016-09-03 07:22] VITALS: RESP 20; TEMP 97.9
[2016-09-03 08:19] LABS: ASPARTATE AMINO TRANSFERASE 26 IU/L (21-57); BILIRUBIN,TOTAL 0.8 mg/dL (0.3-1.2); BLOOD UREA NITROGEN 9 mg/dL (7-22); BUN/CREATININE RATIO 11.25 (6-20); CALCIUM 8.7 mg/dL (8.7-10.7); CHLORIDE 104 meq/L (98-112); CREATININE 0.8 mg/dL (0.70-1.50); EST GLOMERULAR FILTRATION > 60 (>60 ml/min/1.73m(2)); GLUCOSE 152 mg/dL (78-110); POTASSIUM 2.9 meq/L (3.8-5.2); SODIUM 141 meq/L (135-145); TOTAL PROTEIN 7.3 g/dL (6.1-8.0)
[2016-09-03] MEDS: LISINOPRIL 20 MG TABLET PO SCH (08:24)
[2016-09-03] MEDS: METOPROLOL SUCCINATE 25 MG SR 24H TABLET PO SCH (08:25)
[2016-09-03] MEDS: CIPROFLOXACIN 500 MG TABLET PO SCH (08:26)
== END 2016-09-03 08:51 | disposition home or self-care (01) | DRG 690 ==
LOC: ER 12:25 → MED/SURG 17:40
PROVIDERS: ADMIT Internal Medicine; ATTEND Internal Medicine
DX: N39.0 Urinary tract infection, site not specified (principal); C18.9 Malignant neoplasm of colon, unspecified; R19.7 Diarrhea, unspecified; R42 Dizziness and giddiness; R61 Generalized hyperhidrosis; R05 Cough; R68.83 Chills (without fever); K63.9 Disease of intestine, unspecified; R63.4 Abnormal weight loss; E87.6 Hypokalemia
CPT/HCPCS: 71020; 71260; 76775; 80053; 81001; 81003; 83605; 85025; 87040; 87088; 96361; 96365; 96367; 99284 ×2; J3480; 36415; 80048; 83735; 85027; 90656; 90670; 94761; J0692; J1644; J3411; J3475; J7030; J7050

== ENCOUNTER 2016-09-07 10:47 | Emergency (ER) | payer OTHER ==
[2016-09-07] MEDS ORDERED: ONDANSETRON 4 MG/2 ML VIAL IVP ONE (11:31)
[2016-09-07] MEDS ORDERED: Sodium Chloride 0.9% 1,000 ML PRIMARY IV ONE (11:31)
[2016-09-07] MEDS ORDERED: MORPHINE SULFATE 2 MG/1 ML IVP ONE (11:31)
--- NOTE | 2016-09-07 11:31 | PDOC ---
Lower Extremity Problem HPI - General Chief Complaint: Lower Extremity Problem/Injury Stated Complaint: L leg swelling Date Seen by Provider: 09/07/16 Time Seen by Provider: 11:31 Source: POSITIVE: Patient, Spouse Exam Limitations: POSITIVE: No limitations Nurse's Notes Reviewed & Considered: Yes - History of Present Illness Initial Comments: The patient comes in today with complaints of left lower extremity swelling. She was hospitalized last week because of GI bleeding and abdominal pain. CT scan done at that time showed a mass in the colon. He was discharged, [place] [facility] [place] was [place] [facility] Yesterday his left calf began to swell, and he developed pain in his leg. He denies any shortness of breath, chest pain, nausea vomiting diarrhea, no rashes. No fever or chills or sweats. Body Location Affected: REPORTS: Lower Extremity (L) Timing: REPORTS: Abrupt Duration: <24 hours Severity: Moderate Recent Injury: REPORTS: No Location at Time of Onset: REPORTS: Home Quality: REPORTS: "Pain" Modifying Factors: REPORTS: Nothing Exacerbates, Nothing Relieves Similar Symptoms Previously: No Recent Care Received: REPORTS: Recently Seen, Treated by MD, Hospitalized - Patient Home Medications Home Medications: Home Medications Lisinopril 40 mg PO QD #90 tab 06/26/16 Metformin HCl 1 tab PO BID #180 tab 06/26/16 Hydrocodone Bit/Acetaminophen [[place] 7.5-325 Tablet] 1 tab PO Q4-6HRSPRN #50 tab 08/27/16 Metoprolol Succinate [Toprol XL] 25 mg PO DAILY 08/31/16 Ciprofloxacin [Cipro] 500 mg PO BID #10 ml 09/02/16 Potassium Chloride 40 meq PO BID #7 tab 09/02/16 Aspirin [Aspir 81] 81 mg PO DAILY 09/07/16 - Patient Allergies Allergies/Adverse Reactions: Allergies Allergy/AdvReac Type Severity Reaction Status Date / Time No Known Allergies Allergy Verified 09/07/16 11:35 Past Medical History - heen HEENT History: Other (please comment) Additional HEENT History: WEARS GLASSES Cardiovascular History: Hypertension, Arrhythmia, Hyperlipidemia, Other (please comment) Additional Cardiovasular History: AFIB Respiratory History: Denies History Gastrointestinal History: Other (please comment) Additional Gastrointestinal History: CHRONIC DIARRHEA FOR CLOSE TO ONE YEAR Genitourinary History: Denies History Endocrine History: Type 2 Diabetes (oral) Musculoskeletal History: Other (please comment) Additional Musculoskeletal History: SHRAPNEL FROM [place] Neurological History: Denies History Blood Disorders: Denies History Psychiatric History: Denies History History of Sexually Transmitted Diseases: No Cancer History: Colon Cancer Treatment / Date(s) of Treatment: NEWLY DIAGNOSED, NO TREATMENT PLAN OF 08/31/2016 History of MDRO: No History of Other Communicable Diseases: No Alcohol Use: None Substance Use Type: None Previous Surgical History: Yes Type / Date of Surgery: APPENDECTOMY, TONSILLECTOMY, ADENOIDECTOMY, RIGHT DETACHED RETINA REPAIR Anesthesia Reactions: No Malignant Hyperthermia: No Significant Family History: Heart disease ROS - Limitations ROS Limitations: No Limitations Constitution: REPORTS: Denies Symptoms Cardiovascular: REPORTS: Denies Cardiac Symptoms Respiratory: REPORTS: Denies Resp Symptoms Neurological: REPORTS: Denies Neuro Symptoms Gastrointestinal: REPORTS: Denies GI Symptoms Endocrine: REPORTS: Fatigue Musculoskeletal: REPORTS: Lower Extremity Swelling Genitourinary: REPORTS: Denies Symptoms Eyes: REPORTS: Denies Symptoms ENT: REPORTS: Denies Symptoms Skin: REPORTS: Denies Skin Symptoms Lympathic: REPORTS: Denies Lympathic Symptoms Immunologic: POSITIVE: Denies Symptoms Psychiatric: POSITIVE: Denies Psych Symptoms Lower Ext Problem Exam - General Appearance General Appearance: POSITIVE: Alert, Cooperative, No Acute Distress, No Evidence of Trauma - Extremities Lower Extremity: POSITIVE: Tenderness, Swelling, Pedal Edema (Swelling and tenderness of the left lower extremity) Joint Exam: POSITIVE: Joints Normal, Normal ROM, Normal Gait, Normal Weight Bearing Vascular: POSITIVE: No Vascular Compromise, Full Pulses, Equal Pulses, Positive Zaynab's Sign (Left calf.) - Neuro / Psych Neuro/Psych: POSITIVE: Sensation Normal, Motor Normal, Oriented to Person, Oriented to Place, Mood Appropriate, Affect Appropriate Lower Ext Problem Progress - Results Reviewed by me Xrays/CTs/US Reviewed by me: Yes Discussed with Radiologist: Yes Lab Results Reviewed: Yes - Patient's Progress Pain Medication Addressed: POSITIVE: Not Applicable Re-Examine Time: 14:49 Status: POSITIVE: Improved MDM / ED Course: Patient was examined, an IV started, blood drawn and sent to the lab for studies , radiographic examinations were obtained. Findings: CT of his chest shows acute cardiopulmonary decompensation, specifically no pulmonary embolism. Ultrasound of his bilateral lower shows extensive DVT present in his left lower extremity extending from the femoral vein through the popliteal vein. Findings show INR to be 1.16 slight anemia with hemoglobin of 10 hematocrit of 32. Assessment: DVT left lower extremity, hypercoagulable state secondary to colon cancer with recent GI bleed. Plan: [place] [facility] [place] in [place]. ER course: He received a liter of normal saline, pain medication was available however patient declined this, he received Lovenox. - Consult Counseled: POSITIVE: Patient, Family, RE: Lab Results, RE: Radiology Results, RE : DX, RE: Need for F/U Patient Care Time - Estimated PCT Patient Care Time (In Minutes): 45 Vital Signs - VS Reviewed Vital Signs Reviewed: Yes Discharge Clinical Impression: Deep vein thrombosis (DVT) Discharge Disposition: Transferred to Tertiary Care Facility Condition: Stable Date Decision to Transfer to Another Facility: 09/07/16 Time Decision to Transfer to Another Facility: 14:53
[2016-09-07 12:06] LABS: ASPARTATE AMINO TRANSFERASE 21 IU/L (21-57); BILIRUBIN,TOTAL 0.9 mg/dL (0.3-1.2); BLOOD UREA NITROGEN 18 mg/dL (7-22); CALCIUM 8.9 mg/dL (8.7-10.7); CHLORIDE 101 meq/L (98-112); CREATININE 0.8 mg/dL (0.70-1.50); EST GLOMERULAR FILTRATION > 60 (>60 ml/min/1.73m(2)); GLUCOSE 134 mg/dL (78-110); MAGNESIUM 1.6 mg/dL (1.6-2.4); POTASSIUM 3.5 meq/L (3.8-5.2); SODIUM 140 meq/L (135-145); TOTAL PROTEIN 6.9 g/dL (6.1-8.0)
[2016-09-07 12:22] LABS: BASOPHILS # (AUTO) 0.04 10*3/UL; BASOPHILS % (AUTO) 0.3 % (0-1); HEMATOCRIT 32.3 % (42.0-52.0); HEMOGLOBIN 10.5 g/dL (14.0-18.0); IMM GRAN % (AUTO) 0.4 % (0-5); IMM GRAN# (AUTO) 0.05 10*3/UL; LYMPHOCYTES # (AUTO) 1.75 10*3/uL; LYMPHOCYTES % (AUTO) 15.2 % (10-50); MEAN CORPUSCULAR HGB CONC 32.5 g/dL (33-37); MEAN PLATELET VOLUME 9.8 FL (7.4-12.2); MONOCYTES # (AUTO) 1.16 10*3/UL (0.3-0.8); MONOCYTES % (AUTO) 10.1 % (5-15); NEUTROPHILS # (AUTO) 8.38 10*3/UL; RDW COEFFICIENT OF VARIATION 14.6 % (11.5-14.5); RED BLOOD COUNT 3.75 10^6/uL (4.70-6.10); WHITE BLOOD COUNT 11.49 10^3/uL (4.8-10.8)
[2016-09-07 12:23] LABS: PLATELET MORPHOLOGY COMMENT NORMAL MORPHOLOGY (NORM)
[2016-09-07 12:37] VITALS: RESP 16
[2016-09-07] MEDS ORDERED: ENOXAPARIN SODIUM 100 MG/1 ML SYRINGE SUBCUT ONE (12:57)
--- NOTE | 2016-09-07 13:29 | DI ---
HISTORY: Symptoms of clotting and swelling. COMPARISON: None available. TECHNIQUE: Grayscale, color-flow, and pulsed wave Doppler interrogation of the right and left lower extremity deep venous structures from the common femoral vein through the popliteal veins. 66 images . FINDINGS: RIGHT LOWER EXTREMITY: Normal compressibility, color fill-in, respiratory variation, and augmentatio n to flow throughout the deep venous structures. No intraluminal filling defects visualized by ultra sound. LEFT LOWER EXTREMITY: Echogenic material is noted in the left femoral vein and popliteal vein sugges tive of thrombus. There is minimal flow and no compressibility in these vessels. Similar appearance in the left deep femoral vein. The common femoral vein is patent and compressible without evidence of echogenic thrombus. Echogenic thrombus also seen in the superficial venous system including the p eroneal and posterior tibial veins. IMPRESSION: 1. No evidence of right lower extremity DVT. 2. Near complete occlusive thrombus in the left femoral vein, profunda femoral vein, and popliteal ve in. NOTE: The interpreting Radiologist was not present at the time of ultrasound interrogation.
--- NOTE | 2016-09-07 14:15 | DI ---
HISTORY: Shortness of breath with swollen left extremity. COMPARISON: None available. TECHNIQUE: Standard CT pulmonary angiogram axial and coronal reformatted images from the level the a ortic arch through the dome of the diaphragm with maximal contrast opacification of the pulmonary art eries. 577 images. FINDINGS: No pulmonary embolus identified. No thoracic aortic aneurysm or dissection present. The heart and pericardium are unremarkable. No suspicious mediastinal or hilar lymphadenopathy identifie d. There is bilateral dependent atelectasis. A 6 mm nodule is noted in the right upper lobe. The lungs are otherwise clear with no focal airspace mass, consolidation or pneumothorax. No pleural effusion s present. Proximal airways are clear with no evident thickening or bronchiectasis. Innumerable hypoattenuating lesions are noted in throughout the liver, concerning for metastatic foci . The remaining visualized abdominal organs are unremarkable. The osseous structures are unremarkable without acute fracture. No suspicious lytic or sclerotic oss eous lesions noted. IMPRESSION: 1. No evidence of acute pulmonary artery embolus. 2. No acute pathology. 3. Likely diffuse hepatic metastases. Correlate with clinical history and prior imaging. 4. Evidence of a 6 mm right upper lobe pulmonary nodule. Correlate with prior images. Recommend negar rt interval follow up Chest CT given presumed history of malignancy. NOTIFICATION: The above findings and recommendations were phoned to Bob in the CT Department on 11/2016 at 04:19 PM EST.
[2016-09-07 18:30] VITALS: TEMP 97.6
== END 2016-09-07 15:07 | disposition short-term general hospital (02) ==
LOC: ER 10:47
DX: I82.412 Acute embolism and thrombosis of left femoral vein (principal); I82.432 Acute embolism and thrombosis of left popliteal vein; R91.1 Solitary pulmonary nodule; E11.9 Type 2 diabetes mellitus without complications
CPT/HCPCS: 71275; 80053; 83735; 85025; 85610; 93970; 96372; 96374; 99285; J1650; J2270; J2405; J7030

== ENCOUNTER 2016-09-23 08:32 | Day surgery (SDC) | payer OTHER ==
[~2016-09-23 08:32] MED LIST changes: +BUPivacaine Inj 0.5% PF (5mg/ml) 10ml vial ONE; -Fleet Enema 133ml RECTAL ONE; +HEPARIN 500 UNIT/5 ML SYRINGE FOR CENTRAL LINE IVP ONE; +LIDOCAINE 2% 20 MG/ML - 20 ML VIAL ONE; -Lactated Ringers 0 ML PRIMARY IV ONE; +Lactated Ringers 1,000 ML PRIMARY IV ONE
[2016-09-23] MEDS ORDERED: Lactated Ringers 1,000 ML PRIMARY IV ONE (08:40)
[2016-09-23] MEDS ORDERED: LIDOCAINE W/ SODIUM BICARB 0.5 ML SYR ONE ×2 (08:40→10:07)
[2016-09-23] MEDS ORDERED: fentaNYL Inj 250 MCG/5 ML VIAL ONE (09:43)
[2016-09-23] MEDS ORDERED: MIDAZOLAM 5 MG/1 ML ONE (09:43)
[2016-09-23 09:50] LABS: BLOOD UREA NITROGEN 21 mg/dL (7-22); BUN/CREATININE RATIO 23.33 (6-20); CALCIUM 9.4 mg/dL (8.7-10.7); EST GLOMERULAR FILTRATION > 60 (>60 ml/min/1.73m(2)); SERUM ALBUMIN 3.6 g/dL (3.5-4.8)
[2016-09-23] MEDS ORDERED: ceFAZolin Inj 2gm (Premix) 50 ML IV ONE (09:57)
[2016-09-23 09:58] LABS: HEMATOCRIT 37.8 % (42.0-52.0); HEMOGLOBIN 11.7 g/dL (14.0-18.0); MEAN CORPUSCULAR HEMOGLOBIN 26.8 PG (27-31); MEAN CORPUSCULAR VOLUME 86.7 FL (80-90); RED BLOOD COUNT 4.36 10^6/uL (4.70-6.10)
[2016-09-23 09:59] LABS: BASOPHILS % (AUTO) 0.4 % (0-1); EOSINOPHILS % (AUTO) 0.5 % (0-8); MEAN PLATELET VOLUME 10.2 FL (7.4-12.2); MONOCYTES % (AUTO) 6.4 % (5-15); NEUTROPHILS % (AUTO) 78.2 % (50-80)
[2016-09-23 10:00] LABS: BASOPHILS # (AUTO) 0.04 10*3/UL; EOSINOPHILS # (AUTO) 0.06 10*3/UL; LYMPHOCYTES # (AUTO) 1.56 10*3/uL; MONOCYTES # (AUTO) 0.71 10*3/UL (0.3-0.8); NEUTROPHILS # (AUTO) 8.66 10*3/UL; PLATELET MORPHOLOGY COMMENT SEE COMMENTS (NORM); RBC MORPHOLOGY COMMENT NORMAL MORPHOLOGY (NORM); WBC MORPHOLOGY COMMENT NORMAL MORPHOLOGY (NORM)
[2016-09-23 10:31] VITALS: RESP 11
--- NOTE | 2016-09-23 10:53 | GEN.OPNOTE ---
Operative Note Surgery Date: 09/23/16 Preoperative Diagnosis: Metastatic rectal cancer Postoperative Diagnosis: Metastatic rectal cancer Procedure: Insertion of a Mediport Surgeon: Abdullahi Jeter MD Anesthesia Provider: Alex Pires CRNA Anesthesia Type: Local, MAC Estimated Blood Loss (mL): 2 Fluids: LR please see anesthesia notes in EMR. 2 g Ancef Indications: Patient has metastatic rectal cancer with liver metastases. He is needing a Mediport for chemotherapy Operative Summary: Patient is brought in operant. Placed supine position. Given IV sedation. Prepped draped sterile fashion. Timeout performed per protocols. I then cannulated the left subclavian vein using a large-bore needle. Using a guidewire was then placed through the needle. Over the guidewire subsequently a dilator and introducer sheath were then placed. The dilator and guidewire were removed. Using fluoroscopy the port was placed into the superior vena cava. We then removed the and inducer sheath. I then infiltrated local anesthetic made a subcutaneous pocket. His untimely device brought the catheter into the subcutaneous cutaneous port pocket. Connected the catheter to the port. Suture the port to the deep subcutaneous tissue with 2-0 Prolene suture. The skin was reapproximated using 4-0 Monocryl continues running suture. Chest x-ray was ordered and showed no evidence of pneumothorax. Patient tolerates it well the were no problems.
--- NOTE | 2016-09-23 11:26 | DI ---
XR CXR 1VW,09/23/2016 10:45 AM: Clinical History: MediPort placement. Previous Exam: August 31, 2016 Findings: A single frontal radiograph of the chest is obtained, and demonstrates a MediPort within the left ant erior abdominal wall. The tip of the catheter is seen within the superior vena cava. There is no evidence of pneumothorax. There is stable metallic density within the right axilla. There is no evidence of pleural effusion. The cardiomediastinum is unremarkable. Impression: Status post left MediPort placement. Port is in good position.
[2016-09-23 12:44] VITALS: TEMP 97.5
== END 2016-09-23 12:05 | disposition home or self-care (01) ==
LOC: SDSC 08:32
PROVIDERS: ATTEND Surgery
DX: C78.5 Secondary malignant neoplasm of large intestine and rectum (principal)
CPT/HCPCS: 36415; 36561; 71010; 76000; 80053; 82378; 85025; J0690; J3010; J2001; J2250; J3490; J7120

== ENCOUNTER → 2016-10-01 | Outpatient (CLI) | payer OTHER ==
[~2016-10-01] MED LIST changes: -BUPivacaine Inj 0.5% PF (5mg/ml) 10ml vial ONE; -LIDOCAINE 2% 20 MG/ML - 20 ML VIAL ONE; -LIDOCAINE W/ SODIUM BICARB 0.5 ML SYR ONE; -Lactated Ringers 1,000 ML PRIMARY IV ONE
[2016-10-01 09:30] LABS: BASOPHILS # (AUTO) 0.02 10*3/UL; BASOPHILS % (AUTO) 0.1 % (0-1); EOSINOPHILS # (AUTO) 0.03 10*3/UL; EOSINOPHILS % (AUTO) 0.2 % (0-8); HEMOGLOBIN 11.6 g/dL (14.0-18.0); LYMPHOCYTES # (AUTO) 1.41 10*3/uL; MEAN CORPUSCULAR HEMOGLOBIN 27.4 PG (27-31); MEAN CORPUSCULAR HGB CONC 32.2 g/dL (33-37); MEAN CORPUSCULAR VOLUME 84.9 FL (80-90); MEAN PLATELET VOLUME 10.8 FL (7.4-12.2); MONOCYTES # (AUTO) 0.81 10*3/UL (0.3-0.8); NEUTROPHILS # (AUTO) 11.15 10*3/UL; NEUTROPHILS % (AUTO) 82.9 % (50-80); RED BLOOD COUNT 4.24 10^6/uL (4.70-6.10)
[2016-10-01 09:31] LABS: PLATELET MORPHOLOGY COMMENT NORMAL MORPHOLOGY (NORM); RBC MORPHOLOGY COMMENT NORMAL MORPHOLOGY (NORM); WBC MORPHOLOGY COMMENT NORMAL MORPHOLOGY (NORM)
[2016-10-01 09:45] LABS: BLOOD UREA NITROGEN 17 mg/dL (7-22); BUN/CREATININE RATIO 21.25 (6-20); CALCIUM 9.3 mg/dL (8.7-10.7); EST GLOMERULAR FILTRATION > 60 (>60 ml/min/1.73m(2)); MAGNESIUM 1.6 mg/dL (1.6-2.4); SERUM ALBUMIN 3.5 g/dL (3.5-4.8)
== END ==
LOC: LAB 09:01
PROVIDERS: ATTEND Internal Medicine Medical Oncology
DX: C18.7 Malignant neoplasm of sigmoid colon (principal)
CPT/HCPCS: 80053; 82378; 83735; 85025

== ENCOUNTER → 2016-10-15 | Outpatient (CLI) | payer OTHER ==
[2016-10-15 13:03] LABS: BASOPHILS # (AUTO) 0.02 10*3/UL; BASOPHILS % (AUTO) 0.1 % (0-1); EOSINOPHILS # (AUTO) 0 10*3/UL; EOSINOPHILS % (AUTO) 0 % (0-8); HEMATOCRIT 38.3 % (42.0-52.0); HEMOGLOBIN 12.1 g/dL (14.0-18.0); LYMPHOCYTES # (AUTO) 0.85 10*3/uL; MEAN CORPUSCULAR HEMOGLOBIN 27.7 PG (27-31); MEAN CORPUSCULAR HGB CONC 31.6 g/dL (33-37); MEAN CORPUSCULAR VOLUME 87.6 FL (80-90); MEAN PLATELET VOLUME 10.2 FL (7.4-12.2); MONOCYTES # (AUTO) 0.54 10*3/UL (0.3-0.8); NEUTROPHILS # (AUTO) 12.15 10*3/UL; NEUTROPHILS % (AUTO) 89.4 % (50-80); RED BLOOD COUNT 4.37 10^6/uL (4.70-6.10)
[2016-10-15 13:10] LABS: PLATELET MORPHOLOGY COMMENT NORMAL MORPHOLOGY (NORM); RBC MORPHOLOGY COMMENT NORMAL MORPHOLOGY (NORM); WBC MORPHOLOGY COMMENT NORMAL MORPHOLOGY (NORM)
[2016-10-15 13:21] LABS: BLOOD UREA NITROGEN 13 mg/dL (7-22); BUN/CREATININE RATIO 18.57 (6-20); CALCIUM 9.3 mg/dL (8.7-10.7); EST GLOMERULAR FILTRATION > 60 (>60 ml/min/1.73m(2)); SERUM ALBUMIN 3.6 g/dL (3.5-4.8)
== END ==
LOC: LAB 12:45
PROVIDERS: ATTEND Internal Medicine Medical Oncology
DX: C19 Malignant neoplasm of rectosigmoid junction (principal)
CPT/HCPCS: 36415; 80053; 82378; 85025

== ENCOUNTER → 2016-10-22 | Outpatient (CLI) | payer OTHER ==
[2016-10-22 12:25] LABS: BASOPHILS # (AUTO) 0.02 10*3/UL; BASOPHILS % (AUTO) 0.3 % (0-1); EOSINOPHILS # (AUTO) 0.02 10*3/UL; EOSINOPHILS % (AUTO) 0.3 % (0-8); HEMATOCRIT 38.2 % (42.0-52.0); HEMOGLOBIN 12.2 g/dL (14.0-18.0); LYMPHOCYTES # (AUTO) 1.16 10*3/uL; MEAN CORPUSCULAR HEMOGLOBIN 28.5 PG (27-31); MEAN CORPUSCULAR HGB CONC 31.9 g/dL (33-37); MEAN CORPUSCULAR VOLUME 89.3 FL (80-90); MEAN PLATELET VOLUME 9.6 FL (7.4-12.2); MONOCYTES # (AUTO) 0.43 10*3/UL (0.3-0.8); MONOCYTES % (AUTO) 5.6 % (5-15); NEUTROPHILS # (AUTO) 6.02 10*3/UL; NEUTROPHILS % (AUTO) 78.6 % (50-80); PLATELET MORPHOLOGY COMMENT NORMAL MORPHOLOGY (NORM); RBC MORPHOLOGY COMMENT NORMAL MORPHOLOGY (NORM); RED BLOOD COUNT 4.28 10^6/uL (4.70-6.10); WBC MORPHOLOGY COMMENT NORMAL MORPHOLOGY (NORM)
[2016-10-22 12:53] LABS: BLOOD UREA NITROGEN 17 mg/dL (7-22); BUN/CREATININE RATIO 24.28 (6-20); CALCIUM 9.3 mg/dL (8.7-10.7); EST GLOMERULAR FILTRATION > 60 (>60 ml/min/1.73m(2)); SERUM ALBUMIN 3.5 g/dL (3.5-4.8)
== END ==
LOC: LAB 12:06
PROVIDERS: ATTEND Internal Medicine Medical Oncology
DX: C18.7 Malignant neoplasm of sigmoid colon (principal)
CPT/HCPCS: 36415; 80053; 82378; 85025

== ENCOUNTER 2016-10-29 15:50 | Inpatient (IN) | payer OTHER ==
[2016-10-29] MEDS ORDERED: ACETAMINOPHEN 325 MG TABLET PO PRN (15:57)
[2016-10-29] MEDS ORDERED: LIDOCAINE W/ SODIUM BICARB 0.5 ML SYR SUBD PRN (15:57)
[2016-10-29] MEDS ORDERED: NORMAL SALINE 10 ML SYRINGE FLUSH IVP PRN (15:57)
[2016-10-29] MEDS ORDERED: Insulin Sliding Scale Protocol SUBCUT PRN (16:03)
[2016-10-29] MEDS ORDERED: DEXTROSE 50%-WATER SYRINGE 50 ML SYRINGE IVP PRN (16:03)
[2016-10-29] MEDS ORDERED: DEXTROSE 31 GM GEL PO PRN (16:03)
[2016-10-29] MEDS ORDERED: Glucagon Inj Vial 1 MG/ML VIAL IM PRN (16:03)
[2016-10-29 16:33] LABS: MEAN CORPUSCULAR HEMOGLOBIN 29.3 PG (27-31); MEAN CORPUSCULAR HGB CONC 32.4 g/dL (33-37); MEAN CORPUSCULAR VOLUME 90.2 FL (80-90); MEAN PLATELET VOLUME 9.8 FL (7.4-12.2)
[2016-10-29 16:51] LABS: PLATELET MORPHOLOGY COMMENT NORMAL MORPHOLOGY (NORM); RBC MORPHOLOGY COMMENT NORMAL MORPHOLOGY (NORM)
[2016-10-29 16:52] LABS: WBC MORPHOLOGY COMMENT SEE COMMENTS (NORM)
[2016-10-29 16:53] LABS: BLOOD UREA NITROGEN 24 mg/dL (7-22); CALCIUM 8.8 mg/dL (8.7-10.7); EST GLOMERULAR FILTRATION > 60 (>60 ml/min/1.73m(2)); SERUM ALBUMIN 3.4 g/dL (3.5-4.8)
[2016-10-29 16:54] LABS: BAND NEUTROPHILS % 0 % (0-10); BASOPHILS % (MANUAL) 0 % (0-1); EOSINOPHILS % (MANUAL) 0 % (0-8); LYMPHOCYTES % (MANUAL) 5 % (10-50); MONOCYTES % (MANUAL) 1 % (0-12); NEUTROPHILS % (MANUAL) 94 % (50-80)
[2016-10-29] MEDS ORDERED: LIDOCAINE 2% VISCOUS(20 MG/1 ML) - 15 ML UD CUP PO ONE (17:11)
--- NOTE | 2016-10-29 18:03 | PDOC ---
History and Physical - History of Present Illness Date and Time of Service: 10/29/2016, 1800 Chief Complaint: Abdominal pain with nausea and vomiting History of Present Illness: This is a very pleasant 71-year-old male who has diabetes mellitus type II, hypertension, and recently diagnosed rectal carcinoma with liver metastasis. He has been doing chemotherapy, has had 3 cycles of chemotherapy about 2 weeks apart and is due for another round this Thursday. He was not feeling well the last week with increased mid epigastric and upper abdominal pain, and had some nausea develop yesterday along with vomiting. He states that he has lost about 20 pounds in the last month. He's been trying Ensure to maintain his weight. He supposed to start a new chemotherapy agent this Thursday. He saw Dr. Clark today and it was noted that his CEA was decreased and he apparently had a CT scan that showed an increased size to the rectal mass. Oncology thought that perhaps decompression would help the patient overall. Surgery was contacted and the patient has been seen Dr. Jeter, and I was asked to directly admit the patient for medical decompression and monitoring in preparation for potential surgery for what appears to be a colon obstruction. No fevers and no chills. No other exacerbating factors. The patient is tried hydrocodone for pain but could not keep the pill down last night. In terms of his nutrition he does have a Mediport but has not been on any TPN or other nutritional supplements other than Ensure. He denies any chest pain or shortness of breath does not have any anginal equivalent symptoms. Past Medical History Medical History: 1. Hypertension. 2. diabetes. 3. Rectal carcinoma with liver metastasis. 4. Lower extremity DVT status post IVC filter placement. On Xarelto, last dose taken last night. 5. Loss of weight related to cancer. 6. 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 7. History of DVT in left lower extremity, with filter placement Surgical History: 1. Colonoscopy with this colon mass,. 2. Appendectomy. 3. Tonsillectomy and adenoidectomy Pertinent Family History: No family history of colon cancer or heart disease. Past Social History: for 49 years, has 2 children, served in [place] and actually has to [employer] from the service days. Does not smoke or drink. Tobacco Use: Never Smoker Substance Use Type: None Alcohol Use: None Medication / Allergies Home Medications: Home Medications Medication Instructions Recorded Confirmed Type Metformin HCl 1 tab PO BID #180 tab 06/26/16 09/23/16 Clinic Hydrocodone Bit/Acetaminophen 1 tab PO Q4-6HRSPRN #50 tab 08/27/16 09/23/16 Clinic [[place] 7.5-325 Tablet] Metoprolol Succinate [Toprol XL] 12.5 mg PO DAILY 08/31/16 09/23/16 History Potassium Chloride 40 meq PO BID #7 tab 09/02/16 09/23/16 Rx Aspirin [Aspir 81] 81 mg PO DAILY 09/07/16 09/23/16 History Rivaroxaban [Xarelto] 20 mg PO DAILY 10/29/16 10/29/16 History Allergies/Adverse Reactions: Allergies Allergy/AdvReac Type Severity Reaction Status Date / Time No Known Allergies Allergy Verified 09/07/16 11:35 Review of Systems - Review of Systems All Systems: Reviewed & No Additional Complaints Except as Stated (I did a 12 point review systems and it was negative other than that discussed in the history of present illness and that noted below.) - Constitutional Constitutional: REPORTS: Weight Loss - Respiratory Respiratory: DENIES: Negative System Review, Cough, Sputum, Dyspnea At Rest, Dyspnea with Exertion, Pleuritic Pain, Hemoptysis, Wheezing, Other, See HPI - Cardiovascular Cardiovascular: DENIES: Negative System Review, Chest Pain, Edema, Syncope, Palpitations, Orthopnea, Paroxysmal Nocturnal Dyspnea, Other, See HPI - Gastrointestinal Gastrointestinal / Abdominal: REPORTS: Nausea, Vomiting, Abdominal Pain - Genitourinary Genitourinary: DENIES: Negative System Review, Pain, Burning, Hematuria, Incontinence, Urgency, Hesitant Stream, Decreased Stream, Nocutria, Discharge, Sexual Dyfunction, Other, See HPI - Musculoskeletal Musculoskeletal: DENIES: Negative System Review, Back Pain, Neck Pain, Swelling , Calf Pain, Muscle Pain, Cramping, Joint Pain - Hands, Joint Pain - Elbows, Joint Pain - Shoulders, Joint Pain - Hips, Joint Pain - Knees, Joint Pain - Feet , AM Stiffness, Other, See HPI - Hematlogic / Lymphatic Hematologic / Lymphatic: REPORTS: Other (Has active rectal cancer with liver metastasis, history of DVT) - Neurological Neurologic: DENIES: Negative System Review, Headache, Numbness/Paresthesia, Tremors, Weakness, Seizures, Head Trauma, LOC, Dizziness, Confusion, Memory Loss , Difficulty Walking, Incoordination, Other, See HPI Exam - Vitals Vital Signs: Vital Signs Temperature 97.1 F Temperature Source Temporal Artery Scan Pulse Rate [Pulse Oximeter] 88 Respiratory Rate 18 Blood Pressure [Right Arm] 135/81 Pulse Ox 95 Oxygen Delivery Method Room Air Height 6 ft 2 in Weight 157 lb 6.4 oz - General General Appearance: POSITIVE: No Acute Distress, Cooperative, Thin Additional General Exam Details: Temporal wasting with cachexia - Head Head Exam: POSITIVE: Normal Inspection, Normocephalic, Atraumatic - Eye Eye Exam: POSITIVE: EOMI, No Scleral Icterus - ENT ENT Exam: POSITIVE: Mucous Membranes Dry - Neck Neck Exam: POSITIVE: Normal Inspection, No Tenderness, No Thyromegaly - Respiratory Respiratory Exam: POSITIVE: Clear to Auscultation - Bilaterally, Breathing Non Labored, Normal to Percussion and Palpation - Cardiovascular Cardiovascular Exam: POSITIVE: RRR, No Murmur, No Clicks, No Gallops, No Rubs, No JVD - GI/Abdominal GI/Abdominal Exam: POSITIVE: Non Tender, Non Distended, Soft, Hypoactive Bowel Sounds - Rectal Rectal Exam: POSITIVE: Deferred - External Exam: POSITIVE: Deferred Exam: POSITIVE: Deferred - Extremities Extremities Exam: POSITIVE: No Clubbing Present, No Edema Present, No Cyanosis Present - Back Back Exam: POSITIVE: Normal Inspection, No CVA Tenderness - Neurological Neurological Exam: POSITIVE: Alert, Oriented x 3, No Facial Droop, Speech Intact / Clear, Moves All Extremities Equally - Psychiatric Psychiatric Exam: POSITIVE: Normal Affect, Normal Mood - Integumentary Integumentary Exam: POSITIVE: Normal Color, Warm, Dry, Intact - Central Line Examination Central Line Present on Admission: Yes Central Line Type: Med-Port Central Line Location: Subclavian (L) Central Line Site Observations: POSITIVE: Asymptomatic, Intact, Patent Results - Labs CBC and BMP: 10/29/16 16:34 10/29/16 16:34 Labs - Last 24 Hours: Laboratory Results 10/29/16 Range/Units 16:34 WBC 7.68 (4.8-10.8) 10^3/uL RBC 4.10 L (4.70-6.10) 10^6/uL Hgb 12.0 L (14.0-18.0) g/dL Hct 37.0 L (42.0-52.0) % MCV 90.2 H (80-90) FL MCH 29.3 (27-31) PG MCHC 32.4 L (33-37) g/dL RDW Std Deviation 57.7 H (39-50) fL RDW Coeff of Antonio 20.0 H (11.5-14.5) % Plt Count 206 (140-350) 10*3/uL MPV 9.8 (7.4-12.2) FL Neutrophils % (Manual) 94 H (50-80) % Band Neutrophils % 0 (0-10) % Lymphocytes % (Manual) 5 L (10-50) % Monocytes % (Manual) 1 (0-12) % Eosinophils % (Manual) 0 (0-8) % Basophils % (Manual) 0 (0-1) % Metamyelocytes % Not Reportable Myelocytes % Not Reportable Promyelocytes % Not Reportable Blast Cells Not Reportable WBC Morphology Comment See comments (NORM) Plt Morphology Comment Normal morphology (NORM) RBC Morph Comment Normal morphology (NORM) PT 10.7 (9.7-11.4) secs INR 1.04 (0.00-5.90) N/A Sodium 143 (135-145) meq/L Potassium 3.1 L (3.8-5.2) meq/L Chloride 110 (98-112) meq/L Carbon Dioxide 19 L (23-33) meq/L Anion Gap 14 (5-20) BUN 24 H (7-22) mg/dL Creatinine 0.8 (0.70-1.50) mg/dL Estimated GFR > 60 (>60 ml/min/1.73m(2)) BUN/Creatinine Ratio 30.00 H (6-20) Glucose 187 H (78-110) mg/dL Calculated Osmolality 304.0 H (267-292) mOsm/kg Calcium 8.8 (8.7-10.7) mg/dL Total Bilirubin 0.8 (0.3-1.2) mg/dL AST 42 (21-57) IU/L ALT 52 (21-72) IU/L Alkaline Phosphatase 260 H (38-126) IU/L Total Protein 6.8 (6.1-8.0) g/dL Albumin 3.4 L (3.5-4.8) g/dL Globulin 3.4 (2.50-4.10) g/dL Albumin/Globulin Ratio 1.00 L (1.3-2.0) mg/g Assessment and Plan - Patient Problems (1) Colonic obstruction Current Visit: Yes Status: Acute (2) Rectal carcinoma Current Visit: Yes Status: Acute (3) Hypokalemia Current Visit: Yes Status: Acute (4) Weight loss Current Visit: Yes Status: Acute (5) Liver metastasis Current Visit: Yes Status: Acute (6) Diabetes mellitus type II, controlled Current Visit: Yes Status: Acute Qualifiers: Diabetes mellitus complication status: without complication Diabetes mellitus correction insulin use: without correction use Qualified Description : Controlled type 2 diabetes mellitus without complication, without long-term current use of insulin Qualifier Code(s): (E11.9) Type 2 diabetes mellitus without complications (7) Hypertension Current Visit: Yes Status: Acute Qualifiers: Hypertension type: essential hypertension Qualified Description: Essential hypertension Qualifier Code(s): (I10) Essential (primary) hypertension (8) History of DVT (deep vein thrombosis) Current Visit: Yes Status: Acute - Assessment / Plan Additional Assessment/Plan Details: Admit the patient. NG tube to low intermittent wall suction. I will consult the dietary service as I think this patient may benefit from prolonged ProcalAmine or from TPN. Get a pre-albumin study/replace electrolytes/IV fluids/get EKG preoperatively to evaluate. I discussed CODE STATUS, and the patient is full code. Overall her plan is to see if we can medically decompress the patient, but likely the obstruction is too overwhelming, particularly with mass size, and we may need to just proceed with surgery. I will try to get the CT scan from the oncology service that was done today. I'll reassess diabetes status, and stop metformin if indicated. Beta cale will be given in perioperative setting. Photo / Body Diagrams - Uploaded Photos Uploaded Photos:
[2016-10-29] MEDS ORDERED: Potassium Chloride 20 mEq 20 MEQ in Premix 1 BAG IV ONE (18:20)
--- NOTE | 2016-10-29 18:56 | DI ---
ASHLY, 10/29/2016 5:58 PM: Clinical History: Verification of nasogastric tube placement. Previous Exam: None at this facility. There are no soft tissue or bony abnormalities. The bowel gas pattern is consistent with a mild ileus . There is no free air or fluid. The patient has an IVC filter that spans across the third and fourth lumbar vertebral bodies. This patient probably has complete lumbarization of S1. The nasogastric tub e initially is just beyond the GE junction and the final film shows the tip of the nasogastric tube a t the junction between the fundus and body of the stomach. Readin. Nasogastric tube placement as above. 2. Probable mild ileus.
--- NOTE | 2016-10-29 18:58 | PDOC ---
History and Physical - History of Present Illness Date and Time of Service: 10/29/2016 at 1900 Chief Complaint: Nausea and vomiting History of Present Illness: This is is a 71-year-old gentleman whose developed nausea and vomiting and some abdominal pain. He has a known rectal cancer getting adjunctive chemotherapy. I was called by his oncologist stating that patient's having crampy abdominal pain and throwing up. Last time the patient throughout was this morning. According to Dr. Clark the patient had a CT scan that showed dilated colon. Patient states he's not having much abdominal pain now. Hasn't had a bowel movement in a day or 2 Past Medical History Medical History: 1. Hypertension. 2. diabetes. 3. Rectal carcinoma with liver metastasis. 4. Lower extremity DVT status post IVC filter placement. On Xarelto, last dose taken last night. 5. Loss of weight related to cancer. 6. 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 7. History of DVT in left lower extremity, with filter placement Surgical History: 1. Colonoscopy with this colon mass,. 2. Appendectomy. 3. Tonsillectomy and adenoidectomy Pertinent Family History: No family history of colon cancer or heart disease. Past Social History: for 49 years, has 2 children, served in [place] and actually has to [employer] from the service days. Does not smoke or drink. Tobacco Use: Never Smoker Substance Use Type: None Alcohol Use: None Medication / Allergies Home Medications: Home Medications Medication Instructions Recorded Confirmed Type Metformin HCl 1 tab PO BID #180 tab 06/26/16 09/23/16 Clinic Hydrocodone Bit/Acetaminophen 1 tab PO Q4-6HRSPRN #50 tab 08/27/16 09/23/16 Clinic [[place] 7.5-325 Tablet] Metoprolol Succinate [Toprol XL] 12.5 mg PO DAILY 08/31/16 09/23/16 History Potassium Chloride 40 meq PO BID #7 tab 09/02/16 09/23/16 Rx Aspirin [Aspir 81] 81 mg PO DAILY 09/07/16 09/23/16 History Rivaroxaban [Xarelto] 20 mg PO DAILY 10/29/16 10/29/16 History Allergies/Adverse Reactions: Allergies Allergy/AdvReac Type Severity Reaction Status Date / Time No Known Allergies Allergy Verified 10/29/16 18:46 Exam - Vitals Vital Signs: Vital Signs Temperature 97.1 F Temperature Source Temporal Artery Scan Pulse Rate [Pulse Oximeter] 88 Respiratory Rate 18 Blood Pressure [Right Arm] 135/81 Pulse Ox 95 Oxygen Delivery Method Room Air Height 6 ft 2 in Weight 71.395 kg - General General Appearance: POSITIVE: No Acute Distress, Cooperative - Eye Eye Exam: POSITIVE: PERRL, EOMI - GI/Abdominal GI/Abdominal Exam: POSITIVE: Non Tender, Non Distended, Soft, No Hepatomegaly, No Splenomegaly Results - Labs CBC and BMP: 10/29/16 16:34 10/29/16 16:34 Labs - Last 24 Hours: Laboratory Results 10/29/16 10/29/16 Range/Units 16:00 16:34 WBC 7.68 (4.8-10.8) 10^3/uL RBC 4.10 L (4.70-6.10) 10^6/uL Hgb 12.0 L (14.0-18.0) g/dL Hct 37.0 L (42.0-52.0) % MCV 90.2 H (80-90) FL MCH 29.3 (27-31) PG MCHC 32.4 L (33-37) g/dL RDW Std Deviation 57.7 H (39-50) fL RDW Coeff of Antonio 20.0 H (11.5-14.5) % Plt Count 206 (140-350) 10*3/uL MPV 9.8 (7.4-12.2) FL Neutrophils % (Manual) 94 H (50-80) % Band Neutrophils % 0 (0-10) % Lymphocytes % (Manual) 5 L (10-50) % Monocytes % (Manual) 1 (0-12) % Eosinophils % (Manual) 0 (0-8) % Basophils % (Manual) 0 (0-1) % Metamyelocytes % Not Reportable Myelocytes % Not Reportable Promyelocytes % Not Reportable Blast Cells Not Reportable WBC Morphology Comment See comments (NORM) Plt Morphology Comment Normal morphology (NORM) RBC Morph Comment Normal morphology (NORM) PT 10.7 (9.7-11.4) secs INR 1.04 (0.00-5.90) N/A Sodium 143 (135-145) meq/L Potassium 3.1 L (3.8-5.2) meq/L Chloride 110 (98-112) meq/L Carbon Dioxide 19 L (23-33) meq/L Anion Gap 14 (5-20) BUN 24 H (7-22) mg/dL Creatinine 0.8 (0.70-1.50) mg/dL Estimated GFR > 60 (>60 ml/min/1.73m(2)) BUN/Creatinine Ratio 30.00 H (6-20) Glucose 187 H (78-110) mg/dL Calculated Osmolality 304.0 H (267-292) mOsm/kg Calcium 8.8 (8.7-10.7) mg/dL Magnesium 1.7 (1.6-2.4) mg/dL Total Bilirubin 0.8 (0.3-1.2) mg/dL AST 42 (21-57) IU/L ALT 52 (21-72) IU/L Alkaline Phosphatase 260 H (38-126) IU/L Total Protein 6.8 (6.1-8.0) g/dL Albumin 3.4 L (3.5-4.8) g/dL Globulin 3.4 (2.50-4.10) g/dL Albumin/Globulin Ratio 1.00 L (1.3-2.0) mg/g Assessment and Plan - Patient Problems (1) Colonic obstruction Current Visit: Yes Status: Acute (2) Rectal carcinoma Current Visit: Yes Status: Acute - Assessment / Plan Additional Assessment/Plan Details: At this point I would agree with his oncologist and maybe a couple days of decompression may help him alleviate the obstruction. I am going talk to her punch operator to see if there is any chance of they may be able to dilate this. We have the patient on IV fluids. Tomorrow may start him on PPN
--- NOTE | 2016-10-29 19:16 | EKG ---
[address] [address] Measurements Intervals [place] Rate: 75 P: 50 AL: 156 QRS: -9 QRSD: 114 T: 0 QT: 279 QTc: 308 Interpretive Statements SINUS RHYTHM MODERATE INTRAVENTRICULAR CONDUCTION DELAY NONSPECIFIC ST & T-WAVE ABNORMALITY No previous ECG available for comparison Electronically Signed On 10-30-16 13:14:18 MDT by Miki Maldonado [email or web address]
[2016-10-29] MEDS ORDERED: Sodium Chloride 0.9% 1,000 ML ONE (19:30)
[2016-10-29] MEDS: NORMAL SALINE 1000 ML IV SCH (19:32)
[2016-10-29] MEDS ORDERED: Magnesium Sulfate 2gm (Premix) 2 GM in Premix 1 BAG IV ONE (20:37)
[2016-10-29] MEDS: Insulin Lispro Flexpen 300 UNIT/3 ML INSULN.PEN SUBCUT SCH (21:16)
[2016-10-30] MEDS: NORMAL SALINE 1000 ML IV SCH ×2 (05:22→16:44)
[2016-10-30 07:33] LABS: BASOPHILS # (AUTO) 0.01 10*3/UL; BASOPHILS % (AUTO) 0.1 % (0-1); EOSINOPHILS # (AUTO) 0 10*3/UL; EOSINOPHILS % (AUTO) 0 % (0-8); HEMATOCRIT 35.7 % (42.0-52.0); HEMOGLOBIN 11.1 g/dL (14.0-18.0); LYMPHOCYTES # (AUTO) 0.87 10*3/uL; MEAN CORPUSCULAR HEMOGLOBIN 28.6 PG (27-31); MEAN CORPUSCULAR HGB CONC 31.1 g/dL (33-37); MEAN PLATELET VOLUME 11.5 FL (7.4-12.2); MONOCYTES # (AUTO) 0.76 10*3/UL (0.3-0.8); NEUTROPHILS # (AUTO) 7.83 10*3/UL; NEUTROPHILS % (AUTO) 82.6 % (50-80); RED BLOOD COUNT 3.88 10^6/uL (4.70-6.10)
[2016-10-30 07:42] LABS: BLOOD UREA NITROGEN 23 mg/dL (7-22); BUN/CREATININE RATIO 25.55 (6-20); CALCIUM 8.8 mg/dL (8.7-10.7); EST GLOMERULAR FILTRATION > 60 (>60 ml/min/1.73m(2)); MAGNESIUM 2.2 mg/dL (1.6-2.4)
[2016-10-30 07:52] LABS: HEMOGLOBIN A1C 6.23 % (4.2-6.0)
[2016-10-30 08:23] LABS: PLATELET MORPHOLOGY COMMENT NORMAL MORPHOLOGY (NORM); RBC MORPHOLOGY COMMENT NORMAL MORPHOLOGY (NORM); WBC MORPHOLOGY COMMENT NORMAL MORPHOLOGY (NORM)
[2016-10-30] MEDS ORDERED: METOPROLOL SUCCINATE 25 MG SR 24H TABLET PO SCH (09:00)
[2016-10-30] MEDS: Insulin Lispro Flexpen 300 UNIT/3 ML INSULN.PEN SUBCUT SCH ×4 (10:17→22:13)
[2016-10-30] MEDS ORDERED: Potassium Chloride 20 mEq 20 MEQ in Premix 1 BAG IV ONE ×3 (11:54→21:00)
--- NOTE | 2016-10-30 12:10 | DI ---
KUB and UPRIGHT ABDOMEN, 10/30/2016 9:32 AM: Clinical History: Bowel obstruction. The patient has a known rectal cancer with liver metastases. Previous Exam: 10/30/2016. Lucencies are present in the pubic rami and both femoral heads and trochanters, and these are suspici ous for bony metastases. A nasogastric tube is in place. Gas is present in the right side of the colo n as well as in the small bowel without evidence of an acute obstruction. There is no free air or flu id. There are calcified gallstones. The patient has an IVC filter between L3 and L4. Readin. There is no definite bowel obstruction. The patient does have a nasogastric tube. The tube tip is in the body of the stomach. 2. There are lucent lesions in the pelvis and femurs and these are suspicious for bony metastases. T he patient does have known liver metastases. 3. Cholelithiasis.
--- NOTE | 2016-10-30 12:54 | PDOC(PROG) ---
Date and Time of Service: 10/30/2016 at 11:30 Interval History: Patient states he's feeling fine having no abdominal pain. He is not nauseated. Has not passed any flatus or gas. Objective : Data - Labs CBC and BMP: 10/30/16 06:50 10/30/16 06:50 Labs - Last 24 Hours: Laboratory Results 10/29/16 10/29/16 10/30/16 Range/Units 16:00 16:34 06:50 WBC 7.68 9.48 (4.8-10.8) 10^3/uL RBC 4.10 L 3.88 L (4.70-6.10) 10^6/uL Hgb 12.0 L 11.1 L (14.0-18.0) g/dL Hct 37.0 L 35.7 L (42.0-52.0) % MCV 90.2 H 92.0 H (80-90) FL MCH 29.3 28.6 (27-31) PG MCHC 32.4 L 31.1 L (33-37) g/dL RDW Std Deviation 57.7 H 59.5 H (39-50) fL RDW Coeff of Antonio 20.0 H 20.2 H (11.5-14.5) % Plt Count 206 154 (140-350) 10*3/uL MPV 9.8 11.5 (7.4-12.2) FL Immature Gran % (Auto) 0.1 (0-5) % Neut % (Auto) 82.6 H (50-80) % Lymph % (Auto) 9.2 L (10-50) % [place] % (Auto) 8.0 (5-15) % Eos % (Auto) 0 (0-8) % Baso % (Auto) 0.1 (0-1) % Immature Gran # (Auto) 0.01 10*3/UL Neut # (Auto) 7.83 10*3/UL Lymph # (Auto) 0.87 10*3/uL [place] # (Auto) 0.76 (0.3-0.8) 10*3/UL Eos # (Auto) 0 10*3/UL Baso # (Auto) 0.01 10*3/UL Neutrophils % (Manual) 94 H (50-80) % Band Neutrophils % 0 (0-10) % Lymphocytes % (Manual) 5 L (10-50) % Monocytes % (Manual) 1 (0-12) % Eosinophils % (Manual) 0 (0-8) % Basophils % (Manual) 0 (0-1) % Metamyelocytes % Not Reportable Myelocytes % Not Reportable Promyelocytes % Not Reportable Blast Cells Not Reportable WBC Morphology Comment See comments Normal morphology (NORM) Plt Morphology Comment Normal morphology Normal morphology (NORM) RBC Morph Comment Normal morphology Normal morphology (NORM) PT 10.7 (9.7-11.4) secs INR 1.04 (0.00-5.90) N/A Sodium 143 147 H (135-145) meq/L Potassium 3.1 L 3.0 L (3.8-5.2) meq/L Chloride 110 112 (98-112) meq/L Carbon Dioxide 19 L 23 (23-33) meq/L Anion Gap 14 12 (5-20) BUN 24 H 23 H (7-22) mg/dL Creatinine 0.8 0.9 (0.70-1.50) mg/dL Estimated GFR > 60 > 60 (>60 ml/min/1.73m(2)) BUN/Creatinine Ratio 30.00 H 25.55 H (6-20) Glucose 187 H 117 H (78-110) mg/dL Mean Blood Glucose 121.459 mg/dL Hemoglobin A1c 6.23 H (4.2-6.0) % Calculated Osmolality 304.0 H 308.0 H (267-292) mOsm/kg Calcium 8.8 8.8 (8.7-10.7) mg/dL Magnesium 1.7 2.2 (1.6-2.4) mg/dL Total Bilirubin 0.8 0.7 (0.3-1.2) mg/dL AST 42 36 (21-57) IU/L ALT 52 52 (21-72) IU/L Alkaline Phosphatase 260 H 230 H (38-126) IU/L Total Protein 6.8 5.8 L (6.1-8.0) g/dL Albumin 3.4 L 3.0 L (3.5-4.8) g/dL Globulin 3.4 2.8 (2.50-4.10) g/dL Albumin/Globulin Ratio 1.00 L 1.00 L (1.3-2.0) mg/g - Vital Signs Vital Signs and I&O: Vital Signs - Last Taken Temperature 97.4 F 10/30/16 11:42 Pulse Rate 88 10/30/16 11:42 Respiratory Rate 17 10/30/16 11:42 Blood Pressure 149/85 10/30/16 11:42 Pulse Ox 90 10/30/16 11:42 Intake and Output (24hr x 4 totals) 10/28/16 10/29/16 10/30/16 10/31/16 05:59 05:59 05:59 05:59 Intake Total 1016 Output Total 200 Balance 816 Objective : Exam - General General Appearance: No Acute Distress, Cooperative - GI/Abdominal GI/Abdominal Exam: Non Tender, Non Distended, Soft Assessment and Plan - Patient Problems (1) Colonic obstruction Current Visit: Yes Status: Acute (2) Rectal carcinoma Current Visit: Yes Status: Acute - Assessment / Plan Additional Assessment/Plan Details: Abdominal films show the patient still has a bowel obstruction. There is dilated loops of small bowel with air-fluid levels. In the most likely source of the bowel obstruction is the rectal carcinoma. I do not think he is 1 open up and will need a colostomy. I discussed the surgery with the patient and his family. When over the risk and benefits with him. Again this is a palliative surgery most likely is not going to cure him. I told him if we can get the to mild the pelvis and safely resected we will but he's going to need a colostomy since he cannot be bowel prepped. Also there is a high chance of anatomy of the tumor out of the pelvis and he will discontinue a diverting aren't and colostomy.
[2016-10-30] MEDS ORDERED: AA-Dext 5%-25%/Calcium/Lytes 2,000 ML IV SCH (13:00)
[2016-10-30] MEDS: LYTES IV SCH ×2 (14:21)
[2016-10-30] MEDS: MULTIVITAMIN IV SCH ×2 (14:21)
[2016-10-30] MEDS: AA DEXT IV SCH ×2 (14:21)
[2016-10-30] MEDS: CALCIUM IV SCH ×2 (14:21)
[2016-10-30] MEDS: METOPROLOL SUCCINATE 25 MG SR 24H TABLET PO SCH (14:41)
--- NOTE | 2016-10-30 16:31 | PDOC(PROG) ---
Date and Time of Service: 10/30/2016, 1526 Interval History: No chest pain. No shortness breath. Nausea and abdominal pain have improved. This very thirsty. Spoke with Dr. Jeter, and everyone is in agreement that proceeding with surgery to relieve this colonic obstruction is the right thing to do. They will proceed with that tomorrow. I explained continue off the Xarelto for at least that time period and in my discussion with surgery, resume on Thursday. We will use heparin in the meantime to bridge for DVT prophylaxis postoperatively. In terms of nutrition, I will start TPN today and continue electrolyte replacement which I discussed with the patient and his son. Objective : Data - Labs CBC and BMP: 10/30/16 06:50 10/30/16 06:50 Labs - Last 24 Hours: Laboratory Results 10/29/16 10/29/16 10/30/16 Range/Units 16:00 16:34 06:50 WBC 7.68 9.48 (4.8-10.8) 10^3/uL RBC 4.10 L 3.88 L (4.70-6.10) 10^6/uL Hgb 12.0 L 11.1 L (14.0-18.0) g/dL Hct 37.0 L 35.7 L (42.0-52.0) % MCV 90.2 H 92.0 H (80-90) FL MCH 29.3 28.6 (27-31) PG MCHC 32.4 L 31.1 L (33-37) g/dL RDW Std Deviation 57.7 H 59.5 H (39-50) fL RDW Coeff of Antonio 20.0 H 20.2 H (11.5-14.5) % Plt Count 206 154 (140-350) 10*3/uL MPV 9.8 11.5 (7.4-12.2) FL Immature Gran % (Auto) 0.1 (0-5) % Neut % (Auto) 82.6 H (50-80) % Lymph % (Auto) 9.2 L (10-50) % [place] % (Auto) 8.0 (5-15) % Eos % (Auto) 0 (0-8) % Baso % (Auto) 0.1 (0-1) % Immature Gran # (Auto) 0.01 10*3/UL Neut # (Auto) 7.83 10*3/UL Lymph # (Auto) 0.87 10*3/uL [place] # (Auto) 0.76 (0.3-0.8) 10*3/UL Eos # (Auto) 0 10*3/UL Baso # (Auto) 0.01 10*3/UL Neutrophils % (Manual) 94 H (50-80) % Band Neutrophils % 0 (0-10) % Lymphocytes % (Manual) 5 L (10-50) % Monocytes % (Manual) 1 (0-12) % Eosinophils % (Manual) 0 (0-8) % Basophils % (Manual) 0 (0-1) % Metamyelocytes % Not Reportable Myelocytes % Not Reportable Promyelocytes % Not Reportable Blast Cells Not Reportable WBC Morphology Comment See comments Normal morphology (NORM) Plt Morphology Comment Normal morphology Normal morphology (NORM) RBC Morph Comment Normal morphology Normal morphology (NORM) PT 10.7 (9.7-11.4) secs INR 1.04 (0.00-5.90) N/A Sodium 143 147 H (135-145) meq/L Potassium 3.1 L 3.0 L (3.8-5.2) meq/L Chloride 110 112 (98-112) meq/L Carbon Dioxide 19 L 23 (23-33) meq/L Anion Gap 14 12 (5-20) BUN 24 H 23 H (7-22) mg/dL Creatinine 0.8 0.9 (0.70-1.50) mg/dL Estimated GFR > 60 > 60 (>60 ml/min/1.73m(2)) BUN/Creatinine Ratio 30.00 H 25.55 H (6-20) Glucose 187 H 117 H (78-110) mg/dL Mean Blood Glucose 121.459 mg/dL Hemoglobin A1c 6.23 H (4.2-6.0) % Calculated Osmolality 304.0 H 308.0 H (267-292) mOsm/kg Calcium 8.8 8.8 (8.7-10.7) mg/dL Magnesium 1.7 2.2 (1.6-2.4) mg/dL Total Bilirubin 0.8 0.7 (0.3-1.2) mg/dL AST 42 36 (21-57) IU/L ALT 52 52 (21-72) IU/L Alkaline Phosphatase 260 H 230 H (38-126) IU/L Total Protein 6.8 5.8 L (6.1-8.0) g/dL Albumin 3.4 L 3.0 L (3.5-4.8) g/dL Globulin 3.4 2.8 (2.50-4.10) g/dL Albumin/Globulin Ratio 1.00 L 1.00 L (1.3-2.0) mg/g Objective : Exam - General General Appearance: No Acute Distress, Cooperative, Thin Additional General Exam Details: Vital Signs - Last Taken Temperature 97.9 F 10/30/16 16:09 Pulse Rate 82 10/30/16 16:09 Respiratory Rate 16 10/30/16 16:09 Blood Pressure 146/84 10/30/16 16:09 Pulse Ox 90 10/30/16 16:09 - Eye Eye Exam: No Scleral Icterus - Respiratory Respiratory Exam: Clear to Auscultation - Bilaterally, Breathing Non Labored - Cardiovascular Cardiovascular Exam: RRR, No Murmur, No Clicks, No Gallops, No Rubs, No JVD - GI/Abdominal GI/Abdominal Exam: Non Tender, Non Distended, Soft Additional GI/Abdominal Exam Details: NG tube about 300 MLS out - Extremities Extremities Exam: No Edema Present, No Cyanosis Present - Neurological Neurological Exam: Alert, Oriented x 3, No Facial Droop, Speech Intact / Clear, Moves All Extremities Equally Assessment and Plan - Patient Problems (1) Colonic obstruction Current Visit: Yes Status: Acute (2) Rectal carcinoma Current Visit: Yes Status: Acute (3) Hypokalemia Current Visit: Yes Status: Acute (4) Weight loss Current Visit: Yes Status: Acute (5) Liver metastasis Current Visit: Yes Status: Acute (6) Diabetes mellitus type II, controlled Current Visit: Yes Status: Acute Qualifiers: Diabetes mellitus complication status: without complication 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 watermelon harvesting supervisor use Qualified Description : Controlled type 2 diabetes mellitus without complication, without long-term current use of insulin Qualifier Code(s): (E11.9) Type 2 diabetes mellitus without complications (7) Hypertension Current Visit: Yes Status: Acute Qualifiers: Hypertension type: essential hypertension Qualified Description: Essential hypertension Qualifier Code(s): (I10) Essential (primary) hypertension (8) History of DVT (deep vein thrombosis) Current Visit: Yes Status: Acute - Assessment / Plan Additional Assessment/Plan Details: Diabetes type II is well controlled, stop metformin indefinitely. TPN to start today with a joint replacement. Think TPN should be continued for the next couple of weeks, if not a little longer. Dietary consult placed. Surgery tomorrow. Resume Xarelto on Thursday. Short-term DVT prophylaxis bridging with heparin subcutaneously post surgery. Check labs tomorrow. Photo / Body Diagrams - Uploaded Photos Uploaded Photos:
[2016-10-30] MEDS ORDERED: NORMAL SALINE 10 ML SYRINGE FLUSH IVP PRN ×2 (17:00→17:01)
[2016-10-30] MEDS ORDERED: LIDOCAINE W/ SODIUM BICARB 0.5 ML SYR SUBD PRN ×2 (17:00→17:01)
[2016-10-30] MEDS ORDERED: Ampicillin/Sulbactam Inj 3 GM in Sodium Chloride 0.9% 100 ML IV SCH (17:15)
[2016-10-30] MEDS: Fat Emulsions Inj 20% 250 ML IV SCH (20:57)
[2016-10-30] MEDS: HYDROmorphone 2 MG/1 ML IVP PRN (23:29)
[2016-10-31] MEDS ORDERED: LIDOCAINE HCL 2 % 10 ML JELLY URO-JECT TOPICAL ONE (03:37)
[2016-10-31] MEDS: Insulin Lispro Flexpen 300 UNIT/3 ML INSULN.PEN SUBCUT SCH ×4 (06:57→20:53)
[2016-10-31 07:06] LABS: BASOPHILS # (AUTO) 0.01 10*3/UL; BASOPHILS % (AUTO) 0.2 % (0-1); EOSINOPHILS # (AUTO) 0.01 10*3/UL; EOSINOPHILS % (AUTO) 0.2 % (0-8); HEMATOCRIT 33.9 % (42.0-52.0); HEMOGLOBIN 10.5 g/dL (14.0-18.0); LYMPHOCYTES # (AUTO) 0.57 10*3/uL; MEAN CORPUSCULAR HEMOGLOBIN 28.6 PG (27-31); MEAN CORPUSCULAR VOLUME 92.4 FL (80-90); MEAN PLATELET VOLUME 10.9 FL (7.4-12.2); MONOCYTES # (AUTO) 0.48 10*3/UL (0.3-0.8); MONOCYTES % (AUTO) 7.3 % (5-15); NEUTROPHILS # (AUTO) 5.54 10*3/UL; NEUTROPHILS % (AUTO) 83.5 % (50-80); RED BLOOD COUNT 3.67 10^6/uL (4.70-6.10)
[2016-10-31 07:15] LABS: BLOOD UREA NITROGEN 18 mg/dL (7-22); BUN/CREATININE RATIO 25.71 (6-20); CALCIUM 8.4 mg/dL (8.7-10.7); EST GLOMERULAR FILTRATION > 60 (>60 ml/min/1.73m(2)); SERUM ALBUMIN 2.8 g/dL (3.5-4.8)
[2016-10-31 07:39] LABS: WBC MORPHOLOGY COMMENT NORMAL MORPHOLOGY (NORM)
[2016-10-31 07:40] LABS: PLATELET MORPHOLOGY COMMENT SEE COMMENTS (NORM); RBC MORPHOLOGY COMMENT SEE COMMENTS (NORM)
[2016-10-31] MEDS: METOPROLOL SUCCINATE 25 MG SR 24H TABLET PO SCH (08:36)
[2016-10-31] MEDS ORDERED: POTASSIUM PHOSHATE IV ONE (09:35)
[2016-10-31] MEDS ORDERED: D5W IV ONE (09:35)
[2016-10-31 09:53] LABS: PHOSPHORUS 1.4 mg/dl (2.4-4.3)
[2016-10-31] MEDS ORDERED: LIDOCAINE MPF 2% - 5 ML (20 MG/1 ML) ONE (10:07)
[2016-10-31] MEDS ORDERED: MIDAZOLAM 5 MG/1 ML ONE (10:07)
[2016-10-31] MEDS ORDERED: fentaNYL Inj 250 MCG/5 ML VIAL ONE (10:07)
[2016-10-31] MEDS ORDERED: Lactated Ringers 1,000 ML PRIMARY IV ONE (10:08)
[2016-10-31] MEDS ORDERED: ROCURONIUM 10 MG/1 ML - 5 ML VIAL IVP ONE (10:08)
[2016-10-31] MEDS ORDERED: HEPARIN 500 UNIT/5 ML SYRINGE FOR CENTRAL LINE IVP ONE (10:09)
[2016-10-31] MEDS ORDERED: Sodium Chloride 0.9% 100 ML IV ONE (10:10)
[2016-10-31] MEDS ORDERED: Potassium Phoshate Inj 20 MMOL in Sodium Chloride 0.9% 100 ML IV ONE ×3 (10:15→19:15)
--- NOTE | 2016-10-31 12:37 | PDOC(PROG) ---
Date and Time of Service: 10/31/2016 at 11:30 Interval History: Patient's had 3 bowel movements today with the last onecharacterizing as being moderately large. Patient's having no abdominal pain. No nausea. Objective : Data - Labs CBC and BMP: 10/31/16 06:27 10/31/16 06:27 Labs - Last 24 Hours: Laboratory Results 10/30/16 10/31/16 Range/Units 19:20 06:27 WBC 6.62 (4.8-10.8) 10^3/uL RBC 3.67 L (4.70-6.10) 10^6/uL Hgb 10.5 L (14.0-18.0) g/dL Hct 33.9 L (42.0-52.0) % MCV 92.4 H (80-90) FL MCH 28.6 (27-31) PG MCHC 31.0 L (33-37) g/dL RDW Std Deviation 60.8 H (39-50) fL RDW Coeff of [place] 20.1 H (11.5-14.5) % Plt Count 125 L (140-350) 10*3/uL MPV 10.9 (7.4-12.2) FL Immature Gran % (Auto) 0.2 (0-5) % Neut % (Auto) 83.5 H (50-80) % Lymph % (Auto) 8.6 L (10-50) % [place] % (Auto) 7.3 (5-15) % Eos % (Auto) 0.2 (0-8) % Baso % (Auto) 0.2 (0-1) % Immature Gran # (Auto) 0.01 10*3/UL Neut # (Auto) 5.54 10*3/UL Lymph # (Auto) 0.57 10*3/uL [place] # (Auto) 0.48 (0.3-0.8) 10*3/UL Eos # (Auto) 0.01 10*3/UL Baso # (Auto) 0.01 10*3/UL WBC Morphology Comment Normal morphology (NORM) Plt Morphology Comment See comments (NORM) RBC Morph Comment See comments (NORM) Sodium 142 (135-145) meq/L Potassium 2.6 L (3.8-5.2) meq/L Chloride 108 (98-112) meq/L Carbon Dioxide 24 (23-33) meq/L Anion Gap 10 (5-20) BUN 18 (7-22) mg/dL Creatinine 0.7 (0.70-1.50) mg/dL Estimated GFR > 60 (>60 ml/min/1.73m(2)) BUN/Creatinine Ratio 25.71 H (6-20) Glucose 327 H (78-110) mg/dL Calculated Osmolality 308.0 H (267-292) mOsm/kg Calcium 8.4 L (8.7-10.7) mg/dL Phosphorus 1.4 L (2.4-4.3) mg/dl Magnesium 2.0 (1.6-2.4) mg/dL Total Bilirubin 0.5 (0.3-1.2) mg/dL AST 32 (21-57) IU/L ALT 44 (21-72) IU/L Alkaline Phosphatase 191 H (38-126) IU/L Total Protein 5.6 L (6.1-8.0) g/dL Albumin 2.8 L (3.5-4.8) g/dL Globulin 2.8 (2.50-4.10) g/dL Albumin/Globulin Ratio 1.00 L (1.3-2.0) mg/g Blood Type B POSITIVE Antibody Screen Negative - Vital Signs Vital Signs and I&O: Vital Signs - Last Taken Temperature 98.2 F 10/31/16 09:00 Pulse Rate 72 10/31/16 09:00 Respiratory Rate 16 10/31/16 09:00 Blood Pressure 168/87 10/31/16 09:00 Pulse Ox 93 10/31/16 09:00 Intake and Output (24hr x 4 totals) 10/29/16 10/30/16 10/31/16 11/01/16 05:59 05:59 05:59 05:59 Intake Total 1016 3357 200 Output Total 650 211 5746 Balance 816 5762 1059 Objective : Exam - GI/Abdominal GI/Abdominal Exam: Normal Bowel Sounds, Non Tender, Non Distended, Soft Assessment and Plan - Patient Problems (1) Colonic obstruction Current Visit: Yes Status: Acute (2) Rectal carcinoma Current Visit: Yes Status: Acute - Assessment / Plan Additional Assessment/Plan Details: At this point looks like the patient have alleviated his bowel obstruction, at this point I think observation is the best approach. He is to be anticoagulated with Lovenox (recent DVT). He can start back on his chemotherapy drugs. If he re-obstructs then he'll get a diverting colostomy. Discusses with him and his family and they're in agreement
[2016-10-31] MEDS: CAPECITABINE 500 MG PO SCH ×2 (13:34→20:52)
[2016-10-31] MEDS ORDERED: TAMSULOSIN 0.4 MG CAPSULE PO ONE (14:08)
[2016-10-31] MEDS: LYTES IV SCH ×2 (14:26)
[2016-10-31] MEDS: AA DEXT IV SCH ×2 (14:26)
[2016-10-31] MEDS: MULTIVITAMIN IV SCH ×2 (14:26)
[2016-10-31] MEDS: CALCIUM IV SCH ×2 (14:26)
[2016-10-31] MEDS ORDERED: MULTIVITAMIN IV SCH ×3 (14:30)
[2016-10-31] MEDS ORDERED: CALCIUM IV SCH ×3 (14:30)
[2016-10-31] MEDS ORDERED: [UNRECOGNIZED DRUG - OTHER] IV SCH ×3 (14:30)
[2016-10-31] MEDS ORDERED: LYTES IV SCH ×3 (14:30)
[2016-10-31] MEDS ORDERED: AA DEXT IV SCH ×3 (14:30)
--- NOTE | 2016-10-31 19:15 | PDOC(PROG) ---
Date and Time of Service: 10/31/2016, 1914 Interval History: Patient seen and examined earlier with family present. Back she seen twice today. After I saw the patient, he had 3 bowel movements through the day. He had an episode last night where he had severe abdominal pain and required Recinos catheterization due to acute urinary retention. I think the bladder probably was obstructing the colon, and we will start the patient on Flomax in case this is a BPH phenomenon as well. Discussed with surgery in depth. The patient denies any chest pain or shortness breath. Some mild midepigastric pain but no nausea or vomiting and was very excited about delay in surgery as he appears to have cleared this obstruction. Objective : Data - Labs CBC and BMP: 10/31/16 06:27 10/31/16 06:27 Labs - Last 24 Hours: Laboratory Results 10/30/16 10/30/16 10/31/16 Range/Units 06:50 19:20 06:27 WBC 6.62 (4.8-10.8) 10^3/uL RBC 3.67 L (4.70-6.10) 10^6/uL Hgb 10.5 L (14.0-18.0) g/dL Hct 33.9 L (42.0-52.0) % MCV 92.4 H (80-90) FL MCH 28.6 (27-31) PG MCHC 31.0 L (33-37) g/dL RDW Std Deviation 60.8 H (39-50) fL RDW Coeff of [place] 20.1 H (11.5-14.5) % Plt Count 125 L (140-350) 10*3/uL MPV 10.9 (7.4-12.2) FL Immature Gran % (Auto) 0.2 (0-5) % Neut % (Auto) 83.5 H (50-80) % Lymph % (Auto) 8.6 L (10-50) % [place] % (Auto) 7.3 (5-15) % Eos % (Auto) 0.2 (0-8) % Baso % (Auto) 0.2 (0-1) % Immature Gran # (Auto) 0.01 10*3/UL Neut # (Auto) 5.54 10*3/UL Lymph # (Auto) 0.57 10*3/uL [place] # (Auto) 0.48 (0.3-0.8) 10*3/UL Eos # (Auto) 0.01 10*3/UL Baso # (Auto) 0.01 10*3/UL WBC Morphology Comment Normal morphology (NORM) Plt Morphology Comment See comments (NORM) RBC Morph Comment See comments (NORM) Sodium 142 (135-145) meq/L Potassium 2.6 L (3.8-5.2) meq/L Chloride 108 (98-112) meq/L Carbon Dioxide 24 (23-33) meq/L Anion Gap 10 (5-20) BUN 18 (7-22) mg/dL Creatinine 0.7 (0.70-1.50) mg/dL Estimated GFR > 60 (>60 ml/min/1.73m(2)) BUN/Creatinine Ratio 25.71 H (6-20) Glucose 327 H (78-110) mg/dL Calculated Osmolality 308.0 H (267-292) mOsm/kg Calcium 8.4 L (8.7-10.7) mg/dL Phosphorus 1.4 L (2.4-4.3) mg/dl Magnesium 2.0 (1.6-2.4) mg/dL Total Bilirubin 0.5 (0.3-1.2) mg/dL AST 32 (21-57) IU/L ALT 44 (21-72) IU/L Alkaline Phosphatase 191 H (38-126) IU/L Total Protein 5.6 L (6.1-8.0) g/dL Albumin 2.8 L (3.5-4.8) g/dL Globulin 2.8 (2.50-4.10) g/dL Albumin/Globulin Ratio 1.00 L (1.3-2.0) mg/g Prealbumin 20 (19 - 38) mg/dL Blood Type B POSITIVE Antibody Screen Negative Objective : Exam - General General Appearance: No Acute Distress, Cooperative Additional General Exam Details: Vital Signs - Last Taken Temperature 97.7 F 10/31/16 16:49 Pulse Rate 86 10/31/16 16:49 Respiratory Rate 20 10/31/16 16:49 Blood Pressure 150/88 10/31/16 16:49 Pulse Ox 93 10/31/16 16:49 - Eye Eye Exam: No Scleral Icterus - Respiratory Respiratory Exam: Clear to Auscultation - Bilaterally, Breathing Non Labored - Cardiovascular Cardiovascular Exam: RRR, No Murmur, No Clicks, No Gallops, No Rubs, No JVD - GI/Abdominal GI/Abdominal Exam: Non Tender, Non Distended, Soft - Extremities Extremities Exam: No Clubbing Present, No Edema Present, No Cyanosis Present - Neurological Neurological Exam: Alert, Oriented x 3, No Facial Droop, Speech Intact / Clear, Moves All Extremities Equally Assessment and Plan - Patient Problems (1) Colonic obstruction Current Visit: Yes Status: Acute Comment: Maybe resolved. 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: without intermodal truck driver use Qualified Description : Controlled type 2 diabetes mellitus without complication, without long-term current use of insulin Qualifier Code(s): (E11.9) Type 2 diabetes mellitus without complications (7) Hypertension Current Visit: Yes Status: Acute Qualifiers: Hypertension type: essential hypertension Qualified Description: Essential hypertension Qualifier Code(s): (I10) Essential (primary) hypertension (8) History of DVT (deep vein thrombosis) Current Visit: Yes Status: Acute (9) Hypophosphatemia Current Visit: Yes Status: Acute - Assessment / Plan Additional Assessment/Plan Details: NG tube out today and diet advancement as per surgery. If he continues to do well in terms of his obstruction, will advance diet over the weekend. Despite normal pre-albumin, I think TPN make some sense for this patient as he is still calorically malnourished. Replace potassium and phosphorus. Will add Lovenox during the hospital stay and start Xarelto when the patient is converted to an outpatient status. Probably watch patient over weekend to make sure he does not really obstruct quickly. Recinos catheterization and for at least a week, start Flomax. Stop metformin. Plan above discussed with patient, surgery, and family and they all agree. Photo / Body Diagrams - Uploaded Photos Uploaded Photos:
[2016-10-31] MEDS: ONDANSETRON 4 MG/2 ML VIAL IVP PRN (19:26)
[2016-10-31] MEDS: ENOXAPARIN SODIUM 80 MG/0.8 ML SYRINGE SUBCUT SCH (20:53)
[2016-10-31] MEDS: Fat Emulsions Inj 20% 250 ML IV SCH (20:55)
[2016-11-01] MEDS: ONDANSETRON 4 MG/2 ML VIAL IVP PRN ×3 (00:18→23:00)
[2016-11-01] MEDS ORDERED: Potassium Phoshate Inj 20 MMOL in Sodium Chloride 0.9% 100 ML IV ONE ×2 (03:30→12:19)
[2016-11-01] MEDS ORDERED: HEPARIN 500 UNIT/5 ML SYRINGE FOR CENTRAL LINE IVP ONE (04:49)
[2016-11-01 05:23] LABS: BASOPHILS # (AUTO) 0.01 10*3/UL; BASOPHILS % (AUTO) 0.1 % (0-1); EOSINOPHILS # (AUTO) 0.01 10*3/UL; EOSINOPHILS % (AUTO) 0.1 % (0-8); HEMATOCRIT 36.6 % (42.0-52.0); HEMOGLOBIN 11.9 g/dL (14.0-18.0); LYMPHOCYTES # (AUTO) 0.95 10*3/uL; MEAN CORPUSCULAR HEMOGLOBIN 29.5 PG (27-31); MEAN CORPUSCULAR HGB CONC 32.5 g/dL (33-37); MEAN CORPUSCULAR VOLUME 90.6 FL (80-90); MONOCYTES # (AUTO) 0.85 10*3/UL (0.3-0.8); MONOCYTES % (AUTO) 10.5 % (5-15); NEUTROPHILS # (AUTO) 6.25 10*3/UL; NEUTROPHILS % (AUTO) 77.4 % (50-80); RED BLOOD COUNT 4.04 10^6/uL (4.70-6.10)
[2016-11-01 05:24] LABS: PLATELET MORPHOLOGY COMMENT NORMAL MORPHOLOGY (NORM); RBC MORPHOLOGY COMMENT NORMAL MORPHOLOGY (NORM); WBC MORPHOLOGY COMMENT NORMAL MORPHOLOGY (NORM)
[2016-11-01 05:36] LABS: BLOOD UREA NITROGEN 22 mg/dL (7-22); BUN/CREATININE RATIO 31.42 (6-20); CALCIUM 8.9 mg/dL (8.7-10.7); EST GLOMERULAR FILTRATION > 60 (>60 ml/min/1.73m(2)); MAGNESIUM 1.9 mg/dL (1.6-2.4); SERUM ALBUMIN 3.1 g/dL (3.5-4.8)
[2016-11-01] MEDS ORDERED: HEPARIN 500 UNIT/5 ML SYRINGE FOR CENTRAL LINE IVP PRN (06:23)
[2016-11-01] MEDS ORDERED: Potassium Phoshate Inj 3 MMOL/ML VIAL IV ONE (07:00)
[2016-11-01] MEDS ORDERED: Sodium Chloride 0.9% 100 ML IV ONE (07:05)
[2016-11-01] MEDS: Insulin Lispro Flexpen 300 UNIT/3 ML INSULN.PEN SUBCUT SCH ×4 (07:26→20:16)
[2016-11-01] MEDS: METOPROLOL SUCCINATE 25 MG SR 24H TABLET PO SCH (09:43)
[2016-11-01] MEDS: TAMSULOSIN 0.4 MG CAPSULE PO SCH (09:45)
[2016-11-01] MEDS: CAPECITABINE 500 MG PO SCH ×2 (09:49→20:15)
[2016-11-01] MEDS: ENOXAPARIN SODIUM 80 MG/0.8 ML SYRINGE SUBCUT SCH ×2 (09:49→20:16)
[2016-11-01] MEDS: MULTIVITAMIN IV SCH ×3 (14:43)
[2016-11-01] MEDS: [UNRECOGNIZED DRUG - OTHER] IV SCH ×3 (14:43)
[2016-11-01] MEDS: LYTES IV SCH ×3 (14:43)
[2016-11-01] MEDS: AA DEXT IV SCH ×3 (14:43)
[2016-11-01] MEDS: CALCIUM IV SCH ×3 (14:43)
--- NOTE | 2016-11-01 15:24 | PDOC(PROG) ---
Date and Time of Service: 11/01/2016, 1442 Interval History: Patient seen and examined earlier. present. No complaints of chest pain, or shortness breath. Had some vomiting overnight but otherwise has been able to hold some apple juice down today and this can try some pudding. Still continuing to have bowel movements. Feels much better with Recinos catheter in place. No abdominal pain. Objective : Data - Labs CBC and BMP: 11/01/16 05:15 11/01/16 05:15 Labs - Last 24 Hours: Laboratory Results 11/01/16 Range/Units 05:15 WBC 8.09 (4.8-10.8) 10^3/uL RBC 4.04 L (4.70-6.10) 10^6/uL Hgb 11.9 L (14.0-18.0) g/dL Hct 36.6 L (42.0-52.0) % MCV 90.6 H (80-90) FL MCH 29.5 (27-31) PG MCHC 32.5 L (33-37) g/dL RDW Std Deviation 62.4 H (39-50) fL RDW Coeff of Antonio 20.1 H (11.5-14.5) % Plt Count 183 (140-350) 10*3/uL MPV 10.0 (7.4-12.2) FL Immature Gran % (Auto) 0.2 (0-5) % Neut % (Auto) 77.4 (50-80) % Lymph % (Auto) 11.7 (10-50) % [place] % (Auto) 10.5 (5-15) % Eos % (Auto) 0.1 (0-8) % Baso % (Auto) 0.1 (0-1) % Immature Gran # (Auto) 0.02 10*3/UL Neut # (Auto) 6.25 10*3/UL Lymph # (Auto) 0.95 10*3/uL [place] # (Auto) 0.85 H (0.3-0.8) 10*3/UL Eos # (Auto) 0.01 10*3/UL Baso # (Auto) 0.01 10*3/UL WBC Morphology Comment Normal morphology (NORM) Plt Morphology Comment Normal morphology (NORM) RBC Morph Comment Normal morphology (NORM) Sodium 143 (135-145) meq/L Potassium 3.2 L (3.8-5.2) meq/L Chloride 104 (98-112) meq/L Carbon Dioxide 28 (23-33) meq/L Anion Gap 11 (5-20) BUN 22 (7-22) mg/dL Creatinine 0.7 (0.70-1.50) mg/dL Estimated GFR > 60 (>60 ml/min/1.73m(2)) BUN/Creatinine Ratio 31.42 H (6-20) Glucose 337 H (78-110) mg/dL Calculated Osmolality 311.0 H (267-292) mOsm/kg Calcium 8.9 (8.7-10.7) mg/dL Phosphorus 3.0 (2.4-4.3) mg/dl Magnesium 1.9 (1.6-2.4) mg/dL Total Bilirubin 0.5 (0.3-1.2) mg/dL AST 33 (21-57) IU/L ALT 47 (21-72) IU/L Alkaline Phosphatase 217 H (38-126) IU/L Total Protein 6.3 (6.1-8.0) g/dL Albumin 3.1 L (3.5-4.8) g/dL Globulin 3.2 (2.50-4.10) g/dL Albumin/Globulin Ratio 0.90 L (1.3-2.0) mg/g Objective : Exam - General General Appearance: No Acute Distress, Cooperative Additional General Exam Details: Vital Signs - Last Taken Temperature 97.5 F 11/01/16 11:11 Pulse Rate 85 11/01/16 11:11 Respiratory Rate 20 11/01/16 11:11 Blood Pressure 140/82 11/01/16 11:11 Pulse Ox 91 11/01/16 11:11 - Eye Eye Exam: No Scleral Icterus - Respiratory Respiratory Exam: Clear to Auscultation - Bilaterally, Breathing Non Labored, Decreased Breath Sounds (In the bases) - Cardiovascular Cardiovascular Exam: RRR, No Murmur, No Clicks, No Gallops, No Rubs, No JVD - GI/Abdominal GI/Abdominal Exam: Normal Bowel Sounds, Non Tender, Non Distended, Soft - Extremities Extremities Exam: No Clubbing Present, No Edema Present, No Cyanosis Present - Neurological Neurological Exam: Alert, Oriented x 3, No Facial Droop, Speech Intact / Clear, Moves All Extremities Equally Assessment and Plan - Patient Problems (1) Rectal carcinoma Current Visit: Yes Status: Acute (2) Hypokalemia Current Visit: Yes Status: Acute (3) Weight loss Current Visit: Yes Status: Acute (4) Liver metastasis Current Visit: Yes Status: Acute (5) Diabetes mellitus type II, controlled Current Visit: Yes Status: Acute Qualifiers: Diabetes mellitus complication status: without complication Diabetes mellitus terminal gauger insulin use: without alf use Qualified Description : Controlled type 2 diabetes mellitus without complication, without long-term current use of insulin Qualifier Code(s): (E11.9) Type 2 diabetes mellitus without complications (6) Hypertension Current Visit: Yes Status: Acute Qualifiers: Hypertension type: essential hypertension Qualified Description: Essential hypertension Qualifier Code(s): (I10) Essential (primary) hypertension (7) History of DVT (deep vein thrombosis) Current Visit: Yes Status: Acute (8) Hypophosphatemia Current Visit: Yes Status: Acute (9) Colonic obstruction Current Visit: Yes Status: Resolved - Assessment / Plan Additional Assessment/Plan Details: Overall, I think the obstruction was probably at play because of severe urinary retention and the catheter has helped relieve that. Maintain that and Flomax for at least week. Can consider attempting pulling the catheter in a week, but if urinary retention redevelops, catheter placement should resume permanently. He is not really a good candidate for suprapubic catheterization. Despite normal. Albumin, I still believe this patient is quite malnourished in terms of his weight loss, continue TPN. He stated to me that he was around 286 pounds. He is showing some weight gain here however. I think his potassium has been low because of a low phosphorus and that is being replaced and improving his potassium along the way. Hopefully we'll be able to figure out whether we can do TPN for 2-4 weeks here as an outpatient, if not, I'm hoping he'll be ready to discharge home by Thursday or Thursday if he has not really obstructed. Check labs tomorrow and also check lipids. Photo / Body Diagrams - Uploaded Photos Uploaded Photos:
[2016-11-01] MEDS: Fat Emulsions Inj 20% 250 ML IV SCH (20:18)
[2016-11-01] MEDS: NORMAL SALINE 10 ML SYRINGE FLUSH IVP PRN (23:00)
[2016-11-02] MEDS: NORMAL SALINE 10 ML SYRINGE FLUSH IVP PRN ×2 (04:22→07:48)
[2016-11-02 04:59] LABS: BASOPHILS # (AUTO) 0.01 10*3/UL; BASOPHILS % (AUTO) 0.2 % (0-1); EOSINOPHILS # (AUTO) 0.02 10*3/UL; EOSINOPHILS % (AUTO) 0.4 % (0-8); HEMATOCRIT 33.8 % (42.0-52.0); HEMOGLOBIN 10.8 g/dL (14.0-18.0); LYMPHOCYTES # (AUTO) 0.71 10*3/uL; MEAN CORPUSCULAR HEMOGLOBIN 29.3 PG (27-31); MEAN CORPUSCULAR VOLUME 91.8 FL (80-90); MEAN PLATELET VOLUME 10.9 FL (7.4-12.2); MONOCYTES # (AUTO) 0.61 10*3/UL (0.3-0.8); MONOCYTES % (AUTO) 13.1 % (5-15); NEUTROPHILS % (AUTO) 70.9 % (50-80); RED BLOOD COUNT 3.68 10^6/uL (4.70-6.10)
[2016-11-02] MEDS: ONDANSETRON 4 MG/2 ML VIAL IVP PRN ×2 (05:02→07:05)
[2016-11-02 05:03] LABS: PLATELET MORPHOLOGY COMMENT NORMAL MORPHOLOGY (NORM); RBC MORPHOLOGY COMMENT NORMAL MORPHOLOGY (NORM); WBC MORPHOLOGY COMMENT NORMAL MORPHOLOGY (NORM)
[2016-11-02 05:16] LABS: BLOOD UREA NITROGEN 28 mg/dL (7-22); BUN/CREATININE RATIO 46.66 (6-20); CALCIUM 8.6 mg/dL (8.7-10.7); CHOL/HDL RATIO 2.41 RATIO (0-4.0); EST GLOMERULAR FILTRATION > 60 (>60 ml/min/1.73m(2)); HDL CHOLESTEROL 51 mg/dL (40-150); MAGNESIUM 1.9 mg/dL (1.6-2.4); PHOSPHORUS 3.6 mg/dl (2.4-4.3); SERUM ALBUMIN 2.9 g/dL (3.5-4.8); SERUM CHOLESTEROL 123 mg/dL (120-200)
[2016-11-02] MEDS: Insulin Lispro Flexpen 300 UNIT/3 ML INSULN.PEN SUBCUT SCH ×4 (06:43→21:09)
[2016-11-02] MEDS: HYDROmorphone 2 MG/1 ML IVP PRN ×3 (07:05→20:59)
--- NOTE | 2016-11-02 07:52 | PDOC(PROG) ---
Date and Time of Service: 11/02/2016 7:47 AM Interval History: Subjective Patient came into the hospital because of abdominal pain and vomiting, he has a history of colon cancer with metastases to the liver and he's been getting chemotherapy every 2 weeks that include oral and IV, and also he had DVT back in September, he was on Lovenox initially had an IVC filter and was on Xarelto, he said that there were thinking of doing surgery then he had urinary retention had the catheter inserted and then apparently had bowel movements on Thursday so the surgery was canceled and they kept him here in the hospital and tried clear liquid however yesterday afternoon he started to vomit again and he was put on nothing by mouth again overnight he's been having hiccups and he vomited the last time was midnight and then this morning at 5 , he just received Zofran and he said that helped his symptoms. He is currently denying abdominal pain. Not sure that he is passing gas. His abdomen is somewhat distended compared to yesterday. No shortness of breath no chest pain. Objective : Data - Labs CBC and BMP: 11/02/16 04:55 11/02/16 04:55 Labs - Last 24 Hours: Laboratory Results 11/02/16 Range/Units 04:55 WBC 4.66 L (4.8-10.8) 10^3/uL RBC 3.68 L (4.70-6.10) 10^6/uL Hgb 10.8 L (14.0-18.0) g/dL Hct 33.8 L (42.0-52.0) % MCV 91.8 H (80-90) FL MCH 29.3 (27-31) PG MCHC 32.0 L (33-37) g/dL RDW Std Deviation 64.0 H (39-50) fL RDW Coeff of [place] 20.4 H (11.5-14.5) % Plt Count 141 (140-350) 10*3/uL MPV 10.9 (7.4-12.2) FL Immature Gran % (Auto) 0.2 (0-5) % Neut % (Auto) 70.9 (50-80) % Lymph % (Auto) 15.2 (10-50) % [place] % (Auto) 13.1 (5-15) % Eos % (Auto) 0.4 (0-8) % Baso % (Auto) 0.2 (0-1) % Immature Gran # (Auto) 0.01 10*3/UL Neut # (Auto) 3.30 10*3/UL Lymph # (Auto) 0.71 10*3/uL [place] # (Auto) 0.61 (0.3-0.8) 10*3/UL Eos # (Auto) 0.02 10*3/UL Baso # (Auto) 0.01 10*3/UL WBC Morphology Comment Normal morphology (NORM) Plt Morphology Comment Normal morphology (NORM) RBC Morph Comment Normal morphology (NORM) Sodium 140 (135-145) meq/L Potassium 3.6 L (3.8-5.2) meq/L Chloride 102 (98-112) meq/L Carbon Dioxide 30 (23-33) meq/L Anion Gap 8 (5-20) BUN 28 H (7-22) mg/dL Creatinine 0.6 L (0.70-1.50) mg/dL Estimated GFR > 60 (>60 ml/min/1.73m(2)) BUN/Creatinine Ratio 46.66 H (6-20) Glucose 292 H (78-110) mg/dL Calculated Osmolality 306.0 H (267-292) mOsm/kg Calcium 8.6 L (8.7-10.7) mg/dL Phosphorus 3.6 (2.4-4.3) mg/dl Magnesium 1.9 (1.6-2.4) mg/dL Total Bilirubin 0.7 (0.3-1.2) mg/dL AST 51 (21-57) IU/L ALT 55 (21-72) IU/L Alkaline Phosphatase 213 H (38-126) IU/L Total Protein 5.8 L (6.1-8.0) g/dL Albumin 2.9 L (3.5-4.8) g/dL Globulin 2.9 (2.50-4.10) g/dL Albumin/Globulin Ratio 1.00 L (1.3-2.0) mg/g Triglycerides 110 (44-200) mg/dL Cholesterol 123 (120-200) mg/dL LDL Cholesterol, Calc 50.000 mg/dL VLDL Cholesterol 22 (0-40) mg/dL HDL Cholesterol 51 (40-150) mg/dL Cholesterol/HDL Ratio 2.41 (0-4.0) RATIO Objective : Exam - General General Appearance: No Acute Distress, Cooperative - Head Head Exam: Normal Inspection, Atraumatic - Eye Eye Exam: Normal Appearance - ENT ENT Exam: Normal Exam - Neck Neck Exam: Normal Inspection - Respiratory Respiratory Exam: Clear to Auscultation - Bilaterally - Cardiovascular Cardiovascular Exam: RRR - GI/Abdominal GI/Abdominal Exam: Soft, Distended Additional GI/Abdominal Exam Details: There is some tenderness in the right mid abdomen not severe though no guarding. Very difficult to hear bowel sounds. - Rectal Rectal Exam: Deferred - External Exam: Deferred - Extremities Extremities Exam: Normal Inspection - Back Back Exam: Normal Inspection - Neurological Neurological Exam: Alert, Oriented x 3, CN II-XII Intact, Moves All Extremities Equally - Psychiatric Psychiatric Exam: Normal Affect - Integumentary Integumentary Exam: Dry, Pallor Assessment and Plan - Patient Problems (1) Colonic obstruction Current Visit: Yes Status: Resolved Comment: He had that initially when he came in and they thought that he probably opened up so they tried clear liquid on Thursday but this was discontinued in the afternoon yesterday as he started to vomit again. Possibly he may have recurrence of the obstruction, a CT of the abdomen and pelvis was ordered to have it today and then will see what's it shows. Meanwhile the plan regardless we'll keep him here overnight if there is obstruction we may need to put the an NG back in. (2) History of DVT (deep vein thrombosis) Current Visit: Yes Status: Acute Comment: Has history of DVT and he was put back on Lovenox continue. (3) Hypokalemia Current Visit: Yes Status: Acute Comment: This is a improved with replacement, will check it again tomorrow (4) Weight loss Current Visit: Yes Status: Acute Comment: He is malnourished and he was put on TPN continue. (5) Diabetes mellitus type II, controlled Current Visit: Yes Status: Acute Comment: He is on sliding scale continue Qualifiers: Diabetes mellitus complication status: without complication Diabetes mellitus terminal makeup operator insulin use: without terminal makeup operator use Qualified Description : Controlled type 2 diabetes mellitus without complication, without long-term current use of insulin Qualifier Code(s): (E11.9) Type 2 diabetes mellitus without complications Photo / Body Diagrams - Uploaded Photos Uploaded Photos:
[2016-11-02] MEDS: ENOXAPARIN SODIUM 80 MG/0.8 ML SYRINGE SUBCUT SCH (09:42)
[2016-11-02] MEDS: METOPROLOL SUCCINATE 25 MG SR 24H TABLET PO SCH (09:51)
[2016-11-02] MEDS: TAMSULOSIN 0.4 MG CAPSULE PO SCH (09:52)
[2016-11-02] MEDS: CAPECITABINE 500 MG PO SCH (09:55)
[2016-11-02] MEDS ORDERED: LIDOCAINE W/ SODIUM BICARB 0.5 ML SYR SUBD PRN (11:35)
[2016-11-02] MEDS ORDERED: NORMAL SALINE 10 ML SYRINGE FLUSH IVP PRN (11:35)
--- NOTE | 2016-11-02 11:35 | PDOC(PROG) ---
Date and Time of Service: 11/02/2016 at 11:30 Interval History: Patient became nauseated and vomited. He also has some distended abdomen. Patient had a CT scan that shows a bowel obstruction again. Objective : Data - Labs CBC and BMP: 11/02/16 04:55 11/02/16 04:55 Labs - Last 24 Hours: Laboratory Results 11/02/16 Range/Units 04:55 WBC 4.66 L (4.8-10.8) 10^3/uL RBC 3.68 L (4.70-6.10) 10^6/uL Hgb 10.8 L (14.0-18.0) g/dL Hct 33.8 L (42.0-52.0) % MCV 91.8 H (80-90) FL MCH 29.3 (27-31) PG MCHC 32.0 L (33-37) g/dL RDW Std Deviation 64.0 H (39-50) fL RDW Coeff of Antonio 20.4 H (11.5-14.5) % Plt Count 141 (140-350) 10*3/uL MPV 10.9 (7.4-12.2) FL Immature Gran % (Auto) 0.2 (0-5) % Neut % (Auto) 70.9 (50-80) % Lymph % (Auto) 15.2 (10-50) % [place] % (Auto) 13.1 (5-15) % Eos % (Auto) 0.4 (0-8) % Baso % (Auto) 0.2 (0-1) % Immature Gran # (Auto) 0.01 10*3/UL Neut # (Auto) 3.30 10*3/UL Lymph # (Auto) 0.71 10*3/uL [place] # (Auto) 0.61 (0.3-0.8) 10*3/UL Eos # (Auto) 0.02 10*3/UL Baso # (Auto) 0.01 10*3/UL WBC Morphology Comment Normal morphology (NORM) Plt Morphology Comment Normal morphology (NORM) RBC Morph Comment Normal morphology (NORM) Sodium 140 (135-145) meq/L Potassium 3.6 L (3.8-5.2) meq/L Chloride 102 (98-112) meq/L Carbon Dioxide 30 (23-33) meq/L Anion Gap 8 (5-20) BUN 28 H (7-22) mg/dL Creatinine 0.6 L (0.70-1.50) mg/dL Estimated GFR > 60 (>60 ml/min/1.73m(2)) BUN/Creatinine Ratio 46.66 H (6-20) Glucose 292 H (78-110) mg/dL Calculated Osmolality 306.0 H (267-292) mOsm/kg Calcium 8.6 L (8.7-10.7) mg/dL Phosphorus 3.6 (2.4-4.3) mg/dl Magnesium 1.9 (1.6-2.4) mg/dL Total Bilirubin 0.7 (0.3-1.2) mg/dL AST 51 (21-57) IU/L ALT 55 (21-72) IU/L Alkaline Phosphatase 213 H (38-126) IU/L Total Protein 5.8 L (6.1-8.0) g/dL Albumin 2.9 L (3.5-4.8) g/dL Globulin 2.9 (2.50-4.10) g/dL Albumin/Globulin Ratio 1.00 L (1.3-2.0) mg/g Triglycerides 110 (44-200) mg/dL Cholesterol 123 (120-200) mg/dL LDL Cholesterol, Calc 50.000 mg/dL VLDL Cholesterol 22 (0-40) mg/dL HDL Cholesterol 51 (40-150) mg/dL Cholesterol/HDL Ratio 2.41 (0-4.0) RATIO - Vital Signs Vital Signs and I&O: Vital Signs - Last Taken Temperature 97.8 F 11/02/16 11:23 Pulse Rate 81 11/02/16 11:23 Respiratory Rate 16 11/02/16 11:23 Blood Pressure 120/76 11/02/16 11:23 Pulse Ox 95 11/02/16 11:23 Intake and Output (24hr x 4 totals) 10/31/16 11/01/16 11/02/16 11/03/16 05:59 05:59 05:59 05:59 Intake Total 5043 0504 1822 10 Output Total 925 1900 1600 300 Balance 2432 4 222 -290 Objective : Exam - GI/Abdominal GI/Abdominal Exam: Non Tender, Soft, Distended Assessment and Plan - Patient Problems (1) Colonic obstruction Current Visit: Yes Status: Resolved (2) Rectal carcinoma Current Visit: Yes Status: Acute - Assessment / Plan Additional Assessment/Plan Details: At this point patient is reoccurred in a day and a half. Therefore, I believe he needs to have a colostomy made. I would discuss his surgery with him and his family. They have consented to have the surgery tomorrow morning. ( Patient is on Lovenox and need to wait before he can do surgery)
[2016-11-02] MEDS ORDERED: Ampicillin/Sulbactam Inj 3 GM in Sodium Chloride 0.9% 100 ML IV SCH (11:45)
[2016-11-02] MEDS: CALCIUM IV SCH ×3 (14:26)
[2016-11-02] MEDS: LYTES IV SCH ×3 (14:26)
[2016-11-02] MEDS: [UNRECOGNIZED DRUG - OTHER] IV SCH ×3 (14:26)
[2016-11-02] MEDS: AA DEXT IV SCH ×3 (14:26)
[2016-11-02] MEDS: MULTIVITAMIN IV SCH ×3 (14:26)
[2016-11-02] MEDS: Fat Emulsions Inj 20% 250 ML IV SCH (21:09)
[2016-11-03] MEDS: ONDANSETRON 4 MG/2 ML VIAL IVP PRN (02:23)
[2016-11-03] MEDS: HYDROmorphone 2 MG/1 ML IVP PRN (02:24)
[2016-11-03 06:12] LABS: HEMATOCRIT 33.5 % (42.0-52.0); HEMOGLOBIN 10.9 g/dL (14.0-18.0); MEAN CORPUSCULAR HEMOGLOBIN 29.9 PG (27-31); MEAN CORPUSCULAR HGB CONC 32.5 g/dL (33-37); RED BLOOD COUNT 3.64 10^6/uL (4.70-6.10)
[2016-11-03 06:36] LABS: BLOOD UREA NITROGEN 31 mg/dL (7-22); BUN/CREATININE RATIO 51.66 (6-20); CALCIUM 8.5 mg/dL (8.7-10.7); EST GLOMERULAR FILTRATION > 60 (>60 ml/min/1.73m(2))
[2016-11-03] MEDS: Insulin Lispro Flexpen 300 UNIT/3 ML INSULN.PEN SUBCUT SCH ×4 (07:03→21:44)
--- NOTE | 2016-11-03 07:37 | PDOC(PROG) ---
Date and Time of Service: 11/03/2016 7:35 AM Interval History: Subjective As I said in my note yesterday patient did have a CT which showed evidence of obstruction he continued to have the hiccups so we put an NG and I spoke with Dr. Jeter and there is a plan for him to have surgery with creation of colostomy today. He did say that he had another bowel movement this morning. Some abdominal discomfort. Some hiccup is still present. No other symptoms. Objective : Data - Labs CBC and BMP: 11/03/16 05:55 11/03/16 05:55 Labs - Last 24 Hours: Laboratory Results 11/02/16 11/03/16 Range/Units 15:15 05:55 WBC 3.57 L (4.8-10.8) 10^3/uL RBC 3.64 L (4.70-6.10) 10^6/uL Hgb 10.9 L (14.0-18.0) g/dL Hct 33.5 L (42.0-52.0) % MCV 92.0 H (80-90) FL MCH 29.9 (27-31) PG MCHC 32.5 L (33-37) g/dL RDW Std Deviation 65.5 H (39-50) fL RDW Coeff of [place] 21.1 H (11.5-14.5) % Plt Count 149 (140-350) 10*3/uL MPV 11.0 (7.4-12.2) FL Sodium 140 (135-145) meq/L Potassium 3.9 (3.8-5.2) meq/L Chloride 101 (98-112) meq/L Carbon Dioxide 29 (23-33) meq/L Anion Gap 10 (5-20) BUN 31 H (7-22) mg/dL Creatinine 0.6 L (0.70-1.50) mg/dL Estimated GFR > 60 (>60 ml/min/1.73m(2)) BUN/Creatinine Ratio 51.66 H (6-20) Glucose 332 H (78-110) mg/dL Calculated Osmolality 309.0 H (267-292) mOsm/kg Calcium 8.5 L (8.7-10.7) mg/dL Blood Type B POSITIVE Antibody Screen Negative Objective : Exam - General General Appearance: No Acute Distress, Cooperative, Thin - Head Head Exam: Normal Inspection, Atraumatic - Eye Eye Exam: Normal Appearance - ENT ENT Exam: Normal Exam - Neck Neck Exam: Normal Inspection - Respiratory Respiratory Exam: Clear to Auscultation - Bilaterally - Cardiovascular Cardiovascular Exam: RRR - GI/Abdominal GI/Abdominal Exam: Normal Bowel Sounds, Non Tender, Non Distended, Soft - Rectal Rectal Exam: Deferred - External Exam: Deferred - Extremities Extremities Exam: Normal Inspection - Back Back Exam: Normal Inspection - Neurological Neurological Exam: Alert, Oriented x 3, CN II-XII Intact, Moves All Extremities Equally - Psychiatric Psychiatric Exam: Normal Affect - Integumentary Integumentary Exam: Normal Color Assessment and Plan - Patient Problems (1) Colonic obstruction Current Visit: Yes Status: Resolved Comment: He will have surgery today for creation of a colostomy. (2) History of DVT (deep vein thrombosis) Current Visit: Yes Status: Acute Comment: Lovenox was withheld will probably resume postsurgery after discussion with Dr. Jeter on timing. (3) Hypokalemia Current Visit: Yes Status: Acute Comment: His potassium level is back to normal (4) Weight loss Current Visit: Yes Status: Acute Comment: He is on TPN continue (5) Diabetes mellitus type II, controlled Current Visit: Yes Status: Acute Comment: Continue sliding scale Qualifiers: Diabetes mellitus complication status: without complication Diabetes mellitus review engineer insulin use: without senior care use Qualified Description : Controlled type 2 diabetes mellitus without complication, without long-term current use of insulin Qualifier Code(s): (E11.9) Type 2 diabetes mellitus without complications Photo / Body Diagrams - Uploaded Photos Uploaded Photos:
[2016-11-03] MEDS: TAMSULOSIN 0.4 MG CAPSULE PO SCH (09:24)
[2016-11-03] MEDS ORDERED: Ampicillin/Sulbactam Inj 3 GM in Sodium Chloride 0.9% 100 ML IV SCH (10:00)
[2016-11-03] MEDS ORDERED: Lactated Ringers 1,000 ML PRIMARY IV SCH ×2 (10:00→12:45)
[2016-11-03] MEDS: METOPROLOL SUCCINATE 25 MG SR 24H TABLET PO SCH (10:15)
[2016-11-03] MEDS ORDERED: METOPROLOL TARTRATE 5 MG/5 ML VIAL ONE (10:29)
[2016-11-03] MEDS ORDERED: ROCURONIUM 10 MG/1 ML - 5 ML VIAL IVP ONE (10:40)
[2016-11-03] MEDS ORDERED: MIDAZOLAM 5 MG/1 ML ONE (10:40)
[2016-11-03] MEDS ORDERED: LIDOCAINE MPF 2% - 5 ML (20 MG/1 ML) ONE (10:41)
[2016-11-03] MEDS ORDERED: fentaNYL Inj 250 MCG/5 ML VIAL ONE (10:41)
[2016-11-03] MEDS ORDERED: Sodium Chloride 0.9% 100 ML IV ONE (10:51)
[2016-11-03] MEDS ORDERED: AMPICILLIN/SULBACTAM 3 GM VIAL IV ONE (10:51)
[2016-11-03] MEDS ORDERED: Sodium Chloride 0.9% vial 10 ML ONE (11:11)
[2016-11-03] MEDS ORDERED: ePHEDrine Inj 50 MG/ML AMP ONE (11:11)
[2016-11-03] MEDS ORDERED: PHENYLEPHRINE 10,000 MCG/1 ML VIAL ONE (11:11)
[2016-11-03] MEDS ORDERED: KETAMINE 100 MG/1 ML - 5 ML ONE (11:20)
[2016-11-03] MEDS ORDERED: Albumin Human Soln 25% 200 ML IV ONE (11:34)
[2016-11-03] MEDS ORDERED: ONDANSETRON 4 MG/2 ML VIAL ONE (11:58)
[2016-11-03] MEDS ORDERED: Sodium Chloride 0.9% vial 20 ML ONE (11:59)
[2016-11-03] MEDS ORDERED: BUPivacaine Liposome/PF (Exparel) Inj 20ml vial INFIL ONE (12:00)
[2016-11-03] MEDS ORDERED: SUGAMMADEX SODIUM 200 MG/2 ML VIAL IV ONE (12:14)
[2016-11-03] MEDS ORDERED: NORMAL SALINE 10 ML SYRINGE FLUSH IVP PRN (12:37)
[2016-11-03] MEDS: fentaNYL Inj 100 MCG/2 ML VIAL IVP PRN ×3 (12:37→12:51)
[2016-11-03] MEDS ORDERED: Acetaminophen 1000mg Inj 1,000 MG in Premix 1 BAG IV ONE (12:37)
[2016-11-03] MEDS ORDERED: HYDROmorphone 2 MG/1 ML IVP PRN (12:37)
[2016-11-03] MEDS ORDERED: Acetaminophen 1000mg Inj 100 ML IV ONE (12:43)
--- NOTE | 2016-11-03 13:03 | GEN.OPNOTE ---
Operative Note Surgery Date: 11/03/16 Preoperative Diagnosis: Stage IV rectal cancer with bowel obstruction Postoperative Diagnosis: Stage IV rectal cancer with bowel obstruction Procedure: The colostomy Surgeon: Abdullahi Jeter MD Associate Producer: Grant Manning MD Anesthesia Provider: Alex Pires CRNA Anesthesia Type: General Estimated Blood Loss (mL): 50 Fluids: Lactated Ringer's please see anesthesia notes in EMR. 3 g of Unasyn. 20 mg of Exoprel diluted out 40 mL Pathology: None sent Indications: 71-year-old male who has biopsy-proven stage IV rectal carcinoma. He is currently receiving chemotherapy. He has came with a high-grade partial bowel obstruction. Findings: Patient is brought in operative room. Placed in supine position. Given general trach anesthesia. Prepped draped sterile fashion. Timeout performed per protocols. Made a midline incision from the pubic symphysis to above the umbilicus. Hemostased and left cautery dissection to subcutaneous tissue electrocautery. Linea alba was opened in the midline. Patient had dilated colon from the tumor all the way to the cecum. There was ascites. Liver was palpated with multiple liver metastases. Patient's tumor was adherent to the bladder and to the sacrum. It was felt it was unsafe to get the tumor out at this time. We then mobilize the entire left colon. They gave us adequate length to bring out a loop colostomy. We irrigated until clear. Bleeding from the raw surface was controlled electrocautery. There is a couple small vessels that were tied off with 2-0 Vicryl sutures. This point we did a sponge count which was correct. We then planned a site for the colostomy. Made a ventral skin incision. Dissect out some of the subcutaneous fatty tissue. Many crucifix incision on the fascia. Opened the posterior sheath. Did a forefinger dilation. But the loop colostomy out. There was a mesenteric defect and colostomy bridge placed below this. The bridge was sewn to the skin with 2-0 Prolene suture. The midline was closed with 0 Prolene continuous running suture. Subcutaneous tissue was irrigated. Closed with isaias. Exoprel 40 mL was infiltrated subcutaneous tissue for postop pain control. A Tegaderm was put over the midline incision. I then made an incision on the colon to open up the bowel to make the colostomy. I then matured the colostomy and sewn to the subcutaneous tissue with 3-0 Vicryl pop-off sutures. Colostomy bag was in place. Counts were correct. Patient transferred recovery room stable condition. Complications: None Patient Problems - Patient Problem List (1) Colonic obstruction Current Visit: Yes Status: Resolved (2) Rectal carcinoma Current Visit: Yes Status: Acute
[2016-11-03] MEDS ORDERED: NALOXONE 0.4 MG/1 ML VIAL IVP PRN (13:54)
[2016-11-03] MEDS ORDERED: KETOROLAC 15 MG/1 ML VIAL IVP PRN (13:54)
[2016-11-03] MEDS ORDERED: HEPARIN 500 UNIT/5 ML SYRINGE FOR CENTRAL LINE IVP PRN (13:54)
[2016-11-03] MEDS ORDERED: MORPHINE SULFATE/PF PCA 30 MG/30 ML IV SCH (13:54)
[2016-11-03] MEDS ORDERED: ONDANSETRON 4 MG/2 ML VIAL IVP PRN (13:54)
[2016-11-03] MEDS: D5-1/2NS + 20mEq KCL 1,000 ML PRIMARY IV SCH ×2 (14:46→21:31)
[2016-11-03] MEDS: MULTIVITAMIN IV SCH ×3 (14:46)
[2016-11-03] MEDS: CALCIUM IV SCH ×3 (14:46)
[2016-11-03] MEDS: AA DEXT IV SCH ×3 (14:46)
[2016-11-03] MEDS: LYTES IV SCH ×3 (14:46)
[2016-11-03] MEDS: [UNRECOGNIZED DRUG - OTHER] IV SCH ×3 (14:46)
[2016-11-03] MEDS: Ampicillin/Sulbactam Inj 3 GM in Sodium Chloride 0.9% 100 ML IV SCH ×2 (16:56→21:43)
[2016-11-03] MEDS: Fat Emulsions Inj 20% 250 ML IV SCH (20:19)
[2016-11-03] MEDS: Famotidine Inj 20 MG in Normal Saline Flush 10 ML IVP SCH (20:20)
[2016-11-04] MEDS: D5-1/2NS + 20mEq KCL 1,000 ML PRIMARY IV SCH ×2 (02:33→12:10)
[2016-11-04] MEDS: Ampicillin/Sulbactam Inj 3 GM in Sodium Chloride 0.9% 100 ML IV SCH ×4 (03:41→22:34)
[2016-11-04 05:33] LABS: HEMATOCRIT 27.4 % (42.0-52.0); HEMOGLOBIN 8.2 g/dL (14.0-18.0); MEAN CORPUSCULAR VOLUME 95.1 FL (80-90); RED BLOOD COUNT 2.88 10^6/uL (4.70-6.10)
[2016-11-04 05:34] LABS: MEAN CORPUSCULAR HEMOGLOBIN 28.5 PG (27-31); MEAN CORPUSCULAR HGB CONC 29.9 g/dL (33-37)
[2016-11-04 05:35] LABS: MEAN PLATELET VOLUME 10.6 FL (7.4-12.2)
[2016-11-04 05:36] LABS: BASOPHILS % (AUTO) 0.3 % (0-1); EOSINOPHILS % (AUTO) 0.9 % (0-8); LYMPHOCYTES # (AUTO) 0.68 10*3/uL; MONOCYTES % (AUTO) 9.8 % (5-15); NEUTROPHILS # (AUTO) 2.39 10*3/UL
[2016-11-04 05:37] LABS: BASOPHILS # (AUTO) 0.01 10*3/UL; EOSINOPHILS # (AUTO) 0.03 10*3/UL; MONOCYTES # (AUTO) 0.34 10*3/UL (0.3-0.8); PLATELET MORPHOLOGY COMMENT NORMAL MORPHOLOGY (NORM); WBC MORPHOLOGY COMMENT NORMAL MORPHOLOGY (NORM)
[2016-11-04 05:38] LABS: RBC MORPHOLOGY COMMENT SEE COMMENTS (NORM)
[2016-11-04 06:07] LABS: BLOOD UREA NITROGEN 28 mg/dL (7-22); CALCIUM 8.2 mg/dL (8.7-10.7); EST GLOMERULAR FILTRATION > 60 (>60 ml/min/1.73m(2))
[2016-11-04] MEDS: Insulin Lispro Flexpen 300 UNIT/3 ML INSULN.PEN SUBCUT SCH ×4 (06:26→20:00)
--- NOTE | 2016-11-04 07:20 | PDOC(PROG) ---
Date and Time of Service: 11/04/2016 7:15 AM Interval History: Subjective Patient is awake, does not appear in distress, he is denying pain. No nausea or vomiting. He is day 1 post surgery Objective : Data - Labs CBC and BMP: 11/04/16 04:24 11/04/16 04:24 Labs - Last 24 Hours: Laboratory Results 11/04/16 Range/Units 04:24 WBC 3.46 L (4.8-10.8) 10^3/uL RBC 2.88 L (4.70-6.10) 10^6/uL Hgb 8.2 L (14.0-18.0) g/dL Hct 27.4 L (42.0-52.0) % MCV 95.1 H (80-90) FL MCH 28.5 (27-31) PG MCHC 29.9 L (33-37) g/dL RDW Std Deviation 69.2 H (39-50) fL RDW Coeff of Antonio 21.3 H (11.5-14.5) % Plt Count 95 L (140-350) 10*3/uL MPV 10.6 (7.4-12.2) FL Immature Gran % (Auto) 0.3 (0-5) % Neut % (Auto) 69.0 (50-80) % Lymph % (Auto) 19.7 (10-50) % [place] % (Auto) 9.8 (5-15) % Eos % (Auto) 0.9 (0-8) % Baso % (Auto) 0.3 (0-1) % Immature Gran # (Auto) 0.01 10*3/UL Neut # (Auto) 2.39 10*3/UL Lymph # (Auto) 0.68 10*3/uL [place] # (Auto) 0.34 (0.3-0.8) 10*3/UL Eos # (Auto) 0.03 10*3/UL Baso # (Auto) 0.01 10*3/UL WBC Morphology Comment Normal morphology (NORM) Plt Morphology Comment Normal morphology (NORM) RBC Morph Comment See comments (NORM) Sodium 141 (135-145) meq/L Potassium 4.0 (3.8-5.2) meq/L Chloride 103 (98-112) meq/L Carbon Dioxide 30 (23-33) meq/L Anion Gap 8 (5-20) BUN 28 H (7-22) mg/dL Creatinine 0.7 (0.70-1.50) mg/dL Estimated GFR > 60 (>60 ml/min/1.73m(2)) BUN/Creatinine Ratio 40.00 H (6-20) Glucose 231 H (78-110) mg/dL Calculated Osmolality 304.0 H (267-292) mOsm/kg Calcium 8.2 L (8.7-10.7) mg/dL Objective : Exam - General General Appearance: No Acute Distress, Cooperative - Head Head Exam: Normal Inspection - Eye Eye Exam: Normal Appearance - ENT ENT Exam: Normal Exam - Neck Neck Exam: Normal Inspection - Respiratory Respiratory Exam: Clear to Auscultation - Bilaterally - Cardiovascular Cardiovascular Exam: RRR - GI/Abdominal GI/Abdominal Exam: Non Tender, Non Distended, Soft Additional GI/Abdominal Exam Details: Colostomy in place - Rectal Rectal Exam: Deferred - External Exam: Deferred - Extremities Extremities Exam: Normal Inspection - Back Back Exam: Normal Inspection - Neurological Neurological Exam: Alert, Oriented x 3, CN II-XII Intact, Moves All Extremities Equally - Psychiatric Psychiatric Exam: Normal Affect Assessment and Plan - Patient Problems (1) Colonic obstruction Current Visit: Yes Status: Resolved Comment: he status post surgery day 1. We'll stop his IV fluid, is on clear liquid. (2) History of DVT (deep vein thrombosis) Current Visit: Yes Status: Acute Comment: Will speak also with Dr. Jeter as his hemoglobin dropped to see if he is okay to start the Lovenox in the afternoon today. Will put him on a 40 mg a day, hemoglobin remained stable by tomorrow probably put him on a full anticoagulation (3) Hypokalemia Current Visit: Yes Status: Acute Comment: It's back to normal (4) Weight loss Current Visit: Yes Status: Acute Comment: Continue TPN while he is here, I did speak with the associate merchandise planner I 'm not sure that they will approve him for outpatient TPN. (5) Diabetes mellitus type II, controlled Current Visit: Yes Status: Acute Comment: Continue sliding scale Qualifiers: Diabetes mellitus complication status: without complication Diabetes mellitus long-term insulin use: without exterminator helper termite use Qualified Description : Controlled type 2 diabetes mellitus without complication, without long-term current use of insulin Qualifier Code(s): (E11.9) Type 2 diabetes mellitus without complications (6) Anemia, blood loss Current Visit: Yes Status: Acute Comment: Likely secondary to blood loss in addition to some dilution will repeat his lab, to see whether he needs blood Photo / Body Diagrams - Uploaded Photos Uploaded Photos:
[2016-11-04] MEDS: NORMAL SALINE 10 ML SYRINGE FLUSH IVP PRN ×2 (08:51→16:36)
[2016-11-04] MEDS: METOPROLOL SUCCINATE 25 MG SR 24H TABLET PO SCH (08:51)
[2016-11-04] MEDS: Famotidine Inj 20 MG in Normal Saline Flush 10 ML IVP SCH ×2 (08:51→20:00)
--- NOTE | 2016-11-04 08:51 | PDOC(PROG) ---
Subjective Post Op Day: postop day 1 Pain Management: Peripheral TUBE SPLICER Recinos Catheter: Yes Flatus: Yes Diet: Clear Liquids Date and Time of Service: 11/04/2016 at 850 Interval History: Patient states he's feeling very well. He's only been using his pain medicine so he stays ahead of his pain. He denies having any pain. He is having a large amount stool of the colostomy. Incision is clean and dry. He still has hiccups Objective : Data - Labs CBC and BMP: 11/04/16 04:24 11/04/16 04:24 Labs - Last 24 Hours: Laboratory Results 11/04/16 Range/Units 04:24 WBC 3.46 L (4.8-10.8) 10^3/uL RBC 2.88 L (4.70-6.10) 10^6/uL Hgb 8.2 L (14.0-18.0) g/dL Hct 27.4 L (42.0-52.0) % MCV 95.1 H (80-90) FL MCH 28.5 (27-31) PG MCHC 29.9 L (33-37) g/dL RDW Std Deviation 69.2 H (39-50) fL RDW Coeff of Antonio 21.3 H (11.5-14.5) % Plt Count 95 L (140-350) 10*3/uL MPV 10.6 (7.4-12.2) FL Immature Gran % (Auto) 0.3 (0-5) % Neut % (Auto) 69.0 (50-80) % Lymph % (Auto) 19.7 (10-50) % Marin % (Auto) 9.8 (5-15) % Eos % (Auto) 0.9 (0-8) % Baso % (Auto) 0.3 (0-1) % Immature Gran # (Auto) 0.01 10*3/UL Neut # (Auto) 2.39 10*3/UL Lymph # (Auto) 0.68 10*3/uL Marin # (Auto) 0.34 (0.3-0.8) 10*3/UL Eos # (Auto) 0.03 10*3/UL Baso # (Auto) 0.01 10*3/UL WBC Morphology Comment Normal morphology (NORM) Plt Morphology Comment Normal morphology (NORM) RBC Morph Comment See comments (NORM) Sodium 141 (135-145) meq/L Potassium 4.0 (3.8-5.2) meq/L Chloride 103 (98-112) meq/L Carbon Dioxide 30 (23-33) meq/L Anion Gap 8 (5-20) BUN 28 H (7-22) mg/dL Creatinine 0.7 (0.70-1.50) mg/dL Estimated GFR > 60 (>60 ml/min/1.73m(2)) BUN/Creatinine Ratio 40.00 H (6-20) Glucose 231 H (78-110) mg/dL Calculated Osmolality 304.0 H (267-292) mOsm/kg Calcium 8.2 L (8.7-10.7) mg/dL - Vital Signs Vital Signs and I&O: Vital Signs - Last Taken Temperature 99.1 F 11/04/16 06:24 Pulse Rate 101 H 11/04/16 06:37 Respiratory Rate 20 11/04/16 06:24 Blood Pressure 156/84 11/04/16 06:24 Pulse Ox 93 11/04/16 06:37 Intake and Output (24hr x 4 totals) 11/02/16 11/03/16 11/04/16 11/05/16 05:59 05:59 05:59 05:59 Intake Total 1822 2433 4986 250 Output Total 1600 1950 4020 Balance 222 483 966 250 Objective : Exam - General General Appearance: No Acute Distress, Cooperative - GI/Abdominal GI/Abdominal Exam: Non Tender, Non Distended, Firm Assessment and Plan - Patient Problems (1) Colonic obstruction Current Visit: Yes Status: Resolved (2) Rectal carcinoma Current Visit: Yes Status: Acute - Assessment / Plan Additional Assessment/Plan Details: Patient status post having a loop colostomy. He is oriented having stool the colostomy feels a lot better. His hemoglobin did drift down the point to think this is more dilutional than active bleeding. I think Rocephin any be started on low-dose Lovenox. Then if he tolerates it and is seemingly more can have on full dose. We'll increase his diet to full liquid
--- NOTE | 2016-11-04 08:52 | CRNA.PROGR ---
Anesthesia Note Anesthesia Progress Note: Sitting up in bed visiting with family and surgeon. Discussed anesthetic course and expectations. He has no questions or concerns regarding his anesthetic care at this time. Vital Signs (24 hrs) Temp Pulse Pulse Pulse Resp Resp BP 11/04/16 06:37 101 H 11/04/16 06:24 99.1 F 101 H 20 11/04/16 06:22 20 11/04/16 05:00 15 11/04/16 04:32 11/04/16 03:49 98.2 F 100 15 11/04/16 03:00 17 11/04/16 02:27 11/04/16 01:00 18 11/04/16 00:23 98.4 F 107 H 24 11/03/16 23:00 16 11/03/16 21:00 98.4 F 97 16 15 11/03/16 19:58 18 11/03/16 19:00 16 11/03/16 17:58 16 11/03/16 15:59 98.7 F 82 16 11/03/16 15:15 11/03/16 15:00 97.1 F 78 17 11/03/16 14:30 97.9 F 73 18 11/03/16 14:15 97.9 F 82 18 11/03/16 13:54 97.4 F 86 20 11/03/16 13:40 98 F 88 20 140/91 11/03/16 13:30 98.3 F 83 20 143/96 11/03/16 13:20 90 20 137/94 11/03/16 13:10 97.4 F 79 20 149/93 11/03/16 13:00 79 22 139/88 11/03/16 12:50 98.5 F 88 20 151/90 11/03/16 12:40 88 14 125/83 11/03/16 12:35 88 14 128/84 11/03/16 12:29 99 F 91 14 141/86 11/03/16 10:18 97.8 F 108 H 14 112/83 BP Pulse Ox 11/04/16 06:37 93 11/04/16 06:24 156/84 93 11/04/16 06:22 11/04/16 05:00 11/04/16 04:32 94 11/04/16 03:49 133/82 95 11/04/16 03:00 11/04/16 02:27 95 11/04/16 01:00 11/04/16 00:23 135/89 96 11/03/16 23:00 96 11/03/16 21:00 144/84 96 11/03/16 19:58 11/03/16 19:00 97 11/03/16 17:58 11/03/16 15:59 130/77 96 11/03/16 15:15 96 11/03/16 15:00 140/75 97 11/03/16 14:30 136/72 96 11/03/16 14:15 127/77 97 11/03/16 13:54 140/81 95 11/03/16 13:40 11/03/16 13:30 11/03/16 13:20 11/03/16 13:10 11/03/16 13:00 11/03/16 12:50 11/03/16 12:40 11/03/16 12:35 11/03/16 12:29 11/03/16 10:18 Laboratory Results 10/29/16 10/29/16 10/30/16 Range/Units 16:00 16:34 06:50 WBC 7.68 9.48 (4.8-10.8) 10^3/uL RBC 4.10 L 3.88 L (4.70-6.10) 10^6/uL Hgb 12.0 L 11.1 L (14.0-18.0) g/dL Hct 37.0 L 35.7 L (42.0-52.0) % MCV 90.2 H 92.0 H (80-90) FL MCH 29.3 28.6 (27-31) PG MCHC 32.4 L 31.1 L (33-37) g/dL RDW Std Deviation 57.7 H 59.5 H (39-50) fL RDW Coeff of Antonio 20.0 H 20.2 H (11.5-14.5) % Plt Count 206 154 (140-350) 10*3/uL MPV 9.8 11.5 (7.4-12.2) FL Immature Gran % (Auto) 0.1 (0-5) % Neut % (Auto) 82.6 H (50-80) % Lymph % (Auto) 9.2 L (10-50) % Cherry % (Auto) 8.0 (5-15) % Eos % (Auto) 0 (0-8) % Baso % (Auto) 0.1 (0-1) % Immature Gran # (Auto) 0.01 10*3/UL Neut # (Auto) 7.83 10*3/UL Lymph # (Auto) 0.87 10*3/uL Cherry # (Auto) 0.76 (0.3-0.8) 10*3/UL Eos # (Auto) 0 10*3/UL Baso # (Auto) 0.01 10*3/UL Neutrophils % (Manual) 94 H (50-80) % Band Neutrophils % 0 (0-10) % Lymphocytes % (Manual) 5 L (10-50) % Monocytes % (Manual) 1 (0-12) % Eosinophils % (Manual) 0 (0-8) % Basophils % (Manual) 0 (0-1) % Metamyelocytes % Not Reportable Myelocytes % Not Reportable Promyelocytes % Not Reportable Blast Cells Not Reportable WBC Morphology Comment See comments Normal morphology (NORM) Plt Morphology Comment Normal morphology Normal morphology (NORM) RBC Morph Comment Normal morphology Normal morphology (NORM) PT 10.7 (9.7-11.4) secs INR 1.04 (0.00-5.90) N/A Sodium 143 147 H (135-145) meq/L Potassium 3.1 L 3.0 L (3.8-5.2) meq/L Chloride 110 112 (98-112) meq/L Carbon Dioxide 19 L 23 (23-33) meq/L Anion Gap 14 12 (5-20) BUN 24 H 23 H (7-22) mg/dL Creatinine 0.8 0.9 (0.70-1.50) mg/dL Estimated GFR > 60 > 60 (>60 ml/min/1.73m(2)) BUN/Creatinine Ratio 30.00 H 25.55 H (6-20) Glucose 187 H 117 H (78-110) mg/dL Mean Blood Glucose 121.459 mg/dL Hemoglobin A1c 6.23 H (4.2-6.0) % Calculated Osmolality 304.0 H 308.0 H (267-292) mOsm/kg Calcium 8.8 8.8 (8.7-10.7) mg/dL Phosphorus (2.4-4.3) mg/dl Magnesium 1.7 2.2 (1.6-2.4) mg/dL Total Bilirubin 0.8 0.7 (0.3-1.2) mg/dL AST 42 36 (21-57) IU/L ALT 52 52 (21-72) IU/L Alkaline Phosphatase 260 H 230 H (38-126) IU/L Total Protein 6.8 5.8 L (6.1-8.0) g/dL Albumin 3.4 L 3.0 L (3.5-4.8) g/dL Globulin 3.4 2.8 (2.50-4.10) g/dL Albumin/Globulin Ratio 1.00 L 1.00 L (1.3-2.0) mg/g Prealbumin 20 (19 - 38) mg/dL Triglycerides (44-200) mg/dL Cholesterol (120-200) mg/dL LDL Cholesterol, Calc mg/dL VLDL Cholesterol (0-40) mg/dL HDL Cholesterol (40-150) mg/dL Cholesterol/HDL Ratio (0-4.0) RATIO Blood Type Antibody Screen 10/30/16 10/31/16 11/01/16 Range/Units 19:20 06:27 05:15 WBC 6.62 8.09 (4.8-10.8) 10^3/uL RBC 3.67 L 4.04 L (4.70-6.10) 10^6/uL Hgb 10.5 L 11.9 L (14.0-18.0) g/dL Hct 33.9 L 36.6 L (42.0-52.0) % MCV 92.4 H 90.6 H (80-90) FL MCH 28.6 29.5 (27-31) PG MCHC 31.0 L 32.5 L (33-37) g/dL RDW Std Deviation 60.8 H 62.4 H (39-50) fL RDW Coeff of Antonio 20.1 H 20.1 H (11.5-14.5) % Plt Count 125 L 183 (140-350) 10*3/uL MPV 10.9 10.0 (7.4-12.2) FL Immature Gran % (Auto) 0.2 0.2 (0-5) % Neut % (Auto) 83.5 H 77.4 (50-80) % Lymph % (Auto) 8.6 L 11.7 (10-50) % Cherry % (Auto) 7.3 10.5 (5-15) % Eos % (Auto) 0.2 0.1 (0-8) % Baso % (Auto) 0.2 0.1 (0-1) % Immature Gran # (Auto) 0.01 0.02 10*3/UL Neut # (Auto) 5.54 6.25 10*3/UL Lymph # (Auto) 0.57 0.95 10*3/uL Cherry # (Auto) 0.48 0.85 H (0.3-0.8) 10*3/UL Eos # (Auto) 0.01 0.01 10*3/UL Baso # (Auto) 0.01 0.01 10*3/UL Neutrophils % (Manual) (50-80) % Band Neutrophils % (0-10) % Lymphocytes % (Manual) (10-50) % Monocytes % (Manual) (0-12) % Eosinophils % (Manual) (0-8) % Basophils % (Manual) (0-1) % Metamyelocytes % Myelocytes % Promyelocytes % Blast Cells WBC Morphology Comment Normal morphology Normal morphology (NORM) Plt Morphology Comment See comments Normal morphology (NORM) RBC Morph Comment See comments Normal morphology (NORM) PT (9.7-11.4) secs INR (0.00-5.90) N/A Sodium 142 143 (135-145) meq/L Potassium 2.6 L 3.2 L (3.8-5.2) meq/L Chloride 108 104 (98-112) meq/L Carbon Dioxide 24 28 (23-33) meq/L Anion Gap 10 11 (5-20) BUN 18 22 (7-22) mg/dL Creatinine 0.7 0.7 (0.70-1.50) mg/dL Estimated GFR > 60 > 60 (>60 ml/min/1.73m(2)) BUN/Creatinine Ratio 25.71 H 31.42 H (6-20) Glucose 327 H 337 H (78-110) mg/dL Mean Blood Glucose mg/dL Hemoglobin A1c (4.2-6.0) % Calculated Osmolality 308.0 H 311.0 H (267-292) mOsm/kg Calcium 8.4 L 8.9 (8.7-10.7) mg/dL Phosphorus 1.4 L 3.0 (2.4-4.3) mg/dl Magnesium 2.0 1.9 (1.6-2.4) mg/dL Total Bilirubin 0.5 0.5 (0.3-1.2) mg/dL AST 32 33 (21-57) IU/L ALT 44 47 (21-72) IU/L Alkaline Phosphatase 191 H 217 H (38-126) IU/L Total Protein 5.6 L 6.3 (6.1-8.0) g/dL Albumin 2.8 L 3.1 L (3.5-4.8) g/dL Globulin 2.8 3.2 (2.50-4.10) g/dL Albumin/Globulin Ratio 1.00 L 0.90 L (1.3-2.0) mg/g Prealbumin (19 - 38) mg/dL Triglycerides (44-200) mg/dL Cholesterol (120-200) mg/dL LDL Cholesterol, Calc mg/dL VLDL Cholesterol (0-40) mg/dL HDL Cholesterol (40-150) mg/dL Cholesterol/HDL Ratio (0-4.0) RATIO Blood Type B POSITIVE Antibody Screen Negative 11/02/16 11/02/16 11/03/16 Range/Units 04:55 15:15 05:55 WBC 4.66 L 3.57 L (4.8-10.8) 10^3/uL RBC 3.68 L 3.64 L (4.70-6.10) 10^6/uL Hgb 10.8 L 10.9 L (14.0-18.0) g/dL Hct 33.8 L 33.5 L (42.0-52.0) % MCV 91.8 H 92.0 H (80-90) FL MCH 29.3 29.9 (27-31) PG MCHC 32.0 L 32.5 L (33-37) g/dL RDW Std Deviation 64.0 H 65.5 H (39-50) fL RDW Coeff of Antonio 20.4 H 21.1 H (11.5-14.5) % Plt Count 141 149 (140-350) 10*3/uL MPV 10.9 11.0 (7.4-12.2) FL Immature Gran % (Auto) 0.2 (0-5) % Neut % (Auto) 70.9 (50-80) % Lymph % (Auto) 15.2 (10-50) % Cherry % (Auto) 13.1 (5-15) % Eos % (Auto) 0.4 (0-8) % Baso % (Auto) 0.2 (0-1) % Immature Gran # (Auto) 0.01 10*3/UL Neut # (Auto) 3.30 10*3/UL Lymph # (Auto) 0.71 10*3/uL Cherry # (Auto) 0.61 (0.3-0.8) 10*3/UL Eos # (Auto) 0.02 10*3/UL Baso # (Auto) 0.01 10*3/UL Neutrophils % (Manual) (50-80) % Band Neutrophils % (0-10) % Lymphocytes % (Manual) (10-50) % Monocytes % (Manual) (0-12) % Eosinophils % (Manual) (0-8) % Basophils % (Manual) (0-1) % Metamyelocytes % Myelocytes % Promyelocytes % Blast Cells WBC Morphology Comment Normal morphology (NORM) Plt Morphology Comment Normal morphology (NORM) RBC Morph Comment Normal morphology (NORM) PT (9.7-11.4) secs INR (0.00-5.90) N/A Sodium 140 140 (135-145) meq/L Potassium 3.6 L 3.9 (3.8-5.2) meq/L Chloride 102 101 (98-112) meq/L Carbon Dioxide 30 29 (23-33) meq/L Anion Gap 8 10 (5-20) BUN 28 H 31 H (7-22) mg/dL Creatinine 0.6 L 0.6 L (0.70-1.50) mg/dL Estimated GFR > 60 > 60 (>60 ml/min/1.73m(2)) BUN/Creatinine Ratio 46.66 H 51.66 H (6-20) Glucose 292 H 332 H (78-110) mg/dL Mean Blood Glucose mg/dL Hemoglobin A1c (4.2-6.0) % Calculated Osmolality 306.0 H 309.0 H (267-292) mOsm/kg Calcium 8.6 L 8.5 L (8.7-10.7) mg/dL Phosphorus 3.6 (2.4-4.3) mg/dl Magnesium 1.9 (1.6-2.4) mg/dL Total Bilirubin 0.7 (0.3-1.2) mg/dL AST 51 (21-57) IU/L ALT 55 (21-72) IU/L Alkaline Phosphatase 213 H (38-126) IU/L Total Protein 5.8 L (6.1-8.0) g/dL Albumin 2.9 L (3.5-4.8) g/dL Globulin 2.9 (2.50-4.10) g/dL Albumin/Globulin Ratio 1.00 L (1.3-2.0) mg/g Prealbumin (19 - 38) mg/dL Triglycerides 110 (44-200) mg/dL Cholesterol 123 (120-200) mg/dL LDL Cholesterol, Calc 50.000 mg/dL VLDL Cholesterol 22 (0-40) mg/dL HDL Cholesterol 51 (40-150) mg/dL Cholesterol/HDL Ratio 2.41 (0-4.0) RATIO Blood Type B POSITIVE Antibody Screen Negative 11/04/16 Range/Units 04:24 WBC 3.46 L (4.8-10.8) 10^3/uL RBC 2.88 L (4.70-6.10) 10^6/uL Hgb 8.2 L (14.0-18.0) g/dL Hct 27.4 L (42.0-52.0) % MCV 95.1 H (80-90) FL MCH 28.5 (27-31) PG MCHC 29.9 L (33-37) g/dL RDW Std Deviation 69.2 H (39-50) fL RDW Coeff of Antonio 21.3 H (11.5-14.5) % Plt Count 95 L (140-350) 10*3/uL MPV 10.6 (7.4-12.2) FL Immature Gran % (Auto) 0.3 (0-5) % Neut % (Auto) 69.0 (50-80) % Lymph % (Auto) 19.7 (10-50) % Cherry % (Auto) 9.8 (5-15) % Eos % (Auto) 0.9 (0-8) % Baso % (Auto) 0.3 (0-1) % Immature Gran # (Auto) 0.01 10*3/UL Neut # (Auto) 2.39 10*3/UL Lymph # (Auto) 0.68 10*3/uL Cherry # (Auto) 0.34 (0.3-0.8) 10*3/UL Eos # (Auto) 0.03 10*3/UL Baso # (Auto) 0.01 10*3/UL Neutrophils % (Manual) (50-80) % Band Neutrophils % (0-10) % Lymphocytes % (Manual) (10-50) % Monocytes % (Manual) (0-12) % Eosinophils % (Manual) (0-8) % Basophils % (Manual) (0-1) % Metamyelocytes % Myelocytes % Promyelocytes % Blast Cells WBC Morphology Comment Normal morphology (NORM) Plt Morphology Comment Normal morphology (NORM) RBC Morph Comment See comments (NORM) PT (9.7-11.4) secs INR (0.00-5.90) N/A Sodium 141 (135-145) meq/L Potassium 4.0 (3.8-5.2) meq/L Chloride 103 (98-112) meq/L Carbon Dioxide 30 (23-33) meq/L Anion Gap 8 (5-20) BUN 28 H (7-22) mg/dL Creatinine 0.7 (0.70-1.50) mg/dL Estimated GFR > 60 (>60 ml/min/1.73m(2)) BUN/Creatinine Ratio 40.00 H (6-20) Glucose 231 H (78-110) mg/dL Mean Blood Glucose mg/dL Hemoglobin A1c (4.2-6.0) % Calculated Osmolality 304.0 H (267-292) mOsm/kg Calcium 8.2 L (8.7-10.7) mg/dL Phosphorus (2.4-4.3) mg/dl Magnesium (1.6-2.4) mg/dL Total Bilirubin (0.3-1.2) mg/dL AST (21-57) IU/L ALT (21-72) IU/L Alkaline Phosphatase (38-126) IU/L Total Protein (6.1-8.0) g/dL Albumin (3.5-4.8) g/dL Globulin (2.50-4.10) g/dL Albumin/Globulin Ratio (1.3-2.0) mg/g Prealbumin (19 - 38) mg/dL Triglycerides (44-200) mg/dL Cholesterol (120-200) mg/dL LDL Cholesterol, Calc mg/dL VLDL Cholesterol (0-40) mg/dL HDL Cholesterol (40-150) mg/dL Cholesterol/HDL Ratio (0-4.0) RATIO Blood Type Antibody Screen
[2016-11-04] MEDS: ENOXAPARIN SODIUM 40 MG/0.4 ML SYRINGE SUBCUT SCH (11:37)
[2016-11-04] MEDS ORDERED: ENOXAPARIN SODIUM 40 MG/0.4 ML SYRINGE SUBCUT SCH (12:00)
[2016-11-04 13:24] LABS: HEMATOCRIT 29.6 % (42.0-52.0); HEMOGLOBIN 9.3 g/dL (14.0-18.0)
[2016-11-04] MEDS ORDERED: D5-1/2NS + 10mEq KCL 1,000 ML PRIMARY IV SCH (14:00)
[2016-11-04] MEDS: MULTIVITAMIN IV SCH ×3 (15:58)
[2016-11-04] MEDS: LYTES IV SCH ×3 (15:58)
[2016-11-04] MEDS: CALCIUM IV SCH ×3 (15:58)
[2016-11-04] MEDS: [UNRECOGNIZED DRUG - OTHER] IV SCH ×3 (15:58)
[2016-11-04] MEDS: AA DEXT IV SCH ×3 (15:58)
[2016-11-04] MEDS: Fat Emulsions Inj 20% 250 ML IV SCH (19:59)
[2016-11-05] MEDS: Ampicillin/Sulbactam Inj 3 GM in Sodium Chloride 0.9% 100 ML IV SCH ×4 (04:11→21:31)
[2016-11-05 06:49] LABS: BASOPHILS # (AUTO) 0.02 10*3/UL; BASOPHILS % (AUTO) 0.4 % (0-1); EOSINOPHILS # (AUTO) 0.03 10*3/UL; EOSINOPHILS % (AUTO) 0.6 % (0-8); HEMATOCRIT 30.5 % (42.0-52.0); HEMOGLOBIN 9.6 g/dL (14.0-18.0); LYMPHOCYTES # (AUTO) 0.63 10*3/uL; MEAN CORPUSCULAR HGB CONC 31.5 g/dL (33-37); MEAN CORPUSCULAR VOLUME 95.3 FL (80-90); MEAN PLATELET VOLUME 11.6 FL (7.4-12.2); MONOCYTES # (AUTO) 0.53 10*3/UL (0.3-0.8); MONOCYTES % (AUTO) 10.2 % (5-15); NEUTROPHILS # (AUTO) 3.96 10*3/UL; NEUTROPHILS % (AUTO) 76.3 % (50-80)
[2016-11-05] MEDS: Insulin Lispro Flexpen 300 UNIT/3 ML INSULN.PEN SUBCUT SCH ×4 (06:52→20:31)
[2016-11-05 06:57] LABS: BLOOD UREA NITROGEN 24 mg/dL (7-22); BUN/CREATININE RATIO 34.28 (6-20); CALCIUM 8.3 mg/dL (8.7-10.7); EST GLOMERULAR FILTRATION > 60 (>60 ml/min/1.73m(2))
[2016-11-05 07:04] LABS: PLATELET MORPHOLOGY COMMENT NORMAL MORPHOLOGY (NORM); WBC MORPHOLOGY COMMENT NORMAL MORPHOLOGY (NORM)
[2016-11-05 07:05] LABS: RBC MORPHOLOGY COMMENT SEE COMMENTS (NORM)
--- NOTE | 2016-11-05 08:58 | PDOC(PROG) ---
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 He walked around the nurse's station yesterday. Objective : Data - Labs CBC and BMP: 11/05/16 06:05 11/05/16 06:05 Labs - Last 24 Hours: Laboratory Results 11/04/16 11/05/16 Range/Units 13:21 06:05 WBC 5.19 (4.8-10.8) 10^3/uL RBC 3.20 L (4.70-6.10) 10^6/uL Hgb 9.3 L 9.6 L (14.0-18.0) g/dL Hct 29.6 L 30.5 L (42.0-52.0) % MCV 95.3 H (80-90) FL MCH 30.0 (27-31) PG MCHC 31.5 L (33-37) g/dL RDW Std Deviation 69.4 H (39-50) fL RDW Coeff of Antonio 21.1 H (11.5-14.5) % Plt Count 110 L (140-350) 10*3/uL MPV 11.6 (7.4-12.2) FL Immature Gran % (Auto) 0.4 (0-5) % Neut % (Auto) 76.3 (50-80) % Lymph % (Auto) 12.1 (10-50) % Coleman % (Auto) 10.2 (5-15) % Eos % (Auto) 0.6 (0-8) % Baso % (Auto) 0.4 (0-1) % Immature Gran # (Auto) 0.02 10*3/UL Neut # (Auto) 3.96 10*3/UL Lymph # (Auto) 0.63 10*3/uL Coleman # (Auto) 0.53 (0.3-0.8) 10*3/UL Eos # (Auto) 0.03 10*3/UL Baso # (Auto) 0.02 10*3/UL WBC Morphology Comment Normal morphology (NORM) Plt Morphology Comment Normal morphology (NORM) RBC Morph Comment See comments (NORM) Sodium 138 (135-145) meq/L Potassium 2.8 L D (3.8-5.2) meq/L Chloride 102 (98-112) meq/L Carbon Dioxide 28 (23-33) meq/L Anion Gap 8 (5-20) BUN 24 H (7-22) mg/dL Creatinine 0.7 (0.70-1.50) mg/dL Estimated GFR > 60 (>60 ml/min/1.73m(2)) BUN/Creatinine Ratio 34.28 H (6-20) Glucose 232 H (78-110) mg/dL Calculated Osmolality 296.0 H (267-292) mOsm/kg Calcium 8.3 L (8.7-10.7) mg/dL Objective : Exam - General General Appearance: No Acute Distress, Cooperative Additional General Exam Details: Cachectic - Head Head Exam: Normal Inspection, Atraumatic - Eye Eye Exam: Normal Appearance - ENT ENT Exam: Normal Exam - Neck Neck Exam: Normal Inspection - Respiratory Respiratory Exam: Clear to Auscultation - Bilaterally - Cardiovascular Cardiovascular Exam: RRR - GI/Abdominal GI/Abdominal Exam: Normal Bowel Sounds, Non Distended, Soft Additional GI/Abdominal Exam Details: Minimal tenderness in the right upper quadrant. Colostomy in place - External Exam: Deferred - Extremities Extremities Exam: Normal Inspection - Back Back Exam: Normal Inspection - Neurological Neurological Exam: Alert, Oriented x 3, CN II-XII Intact - Psychiatric Psychiatric Exam: Normal Affect - Integumentary Integumentary Exam: Pallor Assessment and Plan - Patient Problems (1) Colonic obstruction Current Visit: Yes Status: Resolved Comment: Status post colostomy, will discuss with the Dr. Jeter switching him to by mouth pain medications. We'll try to see whether we can pull the catheter out today (2) History of DVT (deep vein thrombosis) Current Visit: Yes Status: Acute Comment: We'll switch him to full dose Lovenox (3) Hypokalemia Current Visit: Yes Status: Acute Comment: Potassium is lower today will put him on oral potassium (4) Weight loss Current Visit: Yes Status: Acute Comment: He Is on TPN continue (5) Diabetes mellitus type II, controlled Current Visit: Yes Status: Acute Comment: Continue sliding scale Qualifiers: Diabetes mellitus complication status: without complication Diabetes mellitus body designer insulin use: without body designer use Qualified Description : Controlled type 2 diabetes mellitus without complication, without long-term current use of insulin Qualifier Code(s): (E11.9) Type 2 diabetes mellitus without complications (6) Anemia, blood loss Current Visit: Yes Status: Acute Comment: Blood count is better I don't think he needs transfusion. Photo / Body Diagrams - Uploaded Photos Uploaded Photos:
[2016-11-05] MEDS: POTASSIUM CHLORIDE 20 MEQ TAB PO SCH ×3 (09:38→20:27)
[2016-11-05] MEDS: TAMSULOSIN 0.4 MG CAPSULE PO SCH (09:38)
[2016-11-05] MEDS: ENOXAPARIN SODIUM 40 MG/0.4 ML SYRINGE SUBCUT SCH (09:38)
[2016-11-05] MEDS: METOPROLOL SUCCINATE 25 MG SR 24H TABLET PO SCH (09:38)
[2016-11-05] MEDS: Famotidine Inj 20 MG in Normal Saline Flush 10 ML IVP SCH ×2 (09:39→20:26)
--- NOTE | 2016-11-05 12:00 | PDOC(PROG) ---
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 Catheter: Yes Flatus: Yes Diet: Clear Liquids Date and Time of Service: 11/05/2016 at 12:00 Interval History: Patient is having no problems Objective : Data - Labs CBC and BMP: 11/05/16 06:05 11/05/16 06:05 Labs - Last 24 Hours: Laboratory Results 11/04/16 11/05/16 Range/Units 13:21 06:05 WBC 5.19 (4.8-10.8) 10^3/uL RBC 3.20 L (4.70-6.10) 10^6/uL Hgb 9.3 L 9.6 L (14.0-18.0) g/dL Hct 29.6 L 30.5 L (42.0-52.0) % MCV 95.3 H (80-90) FL MCH 30.0 (27-31) PG MCHC 31.5 L (33-37) g/dL RDW Std Deviation 69.4 H (39-50) fL RDW Coeff of Antonio 21.1 H (11.5-14.5) % Plt Count 110 L (140-350) 10*3/uL MPV 11.6 (7.4-12.2) FL Immature Gran % (Auto) 0.4 (0-5) % Neut % (Auto) 76.3 (50-80) % Lymph % (Auto) 12.1 (10-50) % Kimble % (Auto) 10.2 (5-15) % Eos % (Auto) 0.6 (0-8) % Baso % (Auto) 0.4 (0-1) % Immature Gran # (Auto) 0.02 10*3/UL Neut # (Auto) 3.96 10*3/UL Lymph # (Auto) 0.63 10*3/uL Kimble # (Auto) 0.53 (0.3-0.8) 10*3/UL Eos # (Auto) 0.03 10*3/UL Baso # (Auto) 0.02 10*3/UL WBC Morphology Comment Normal morphology (NORM) Plt Morphology Comment Normal morphology (NORM) RBC Morph Comment See comments (NORM) Sodium 138 (135-145) meq/L Potassium 2.8 L D (3.8-5.2) meq/L Chloride 102 (98-112) meq/L Carbon Dioxide 28 (23-33) meq/L Anion Gap 8 (5-20) BUN 24 H (7-22) mg/dL Creatinine 0.7 (0.70-1.50) mg/dL Estimated GFR > 60 (>60 ml/min/1.73m(2)) BUN/Creatinine Ratio 34.28 H (6-20) Glucose 232 H (78-110) mg/dL Calculated Osmolality 296.0 H (267-292) mOsm/kg Calcium 8.3 L (8.7-10.7) mg/dL - Vital Signs Vital Signs and I&O: Vital Signs - Last Taken Temperature 97.4 F 11/05/16 08:28 Pulse Rate 91 11/05/16 08:28 Respiratory Rate 20 11/05/16 09:00 Blood Pressure 141/78 11/05/16 08:28 Pulse Ox 97 11/05/16 11:00 Intake and Output (24hr x 4 totals) 11/03/16 11/04/16 11/05/16 11/06/16 05:59 05:59 05:59 05:59 Intake Total 2433 4986 4299 394 Output Total 1950 4020 2100 310 Balance 856 035 0335 84 Objective : Exam - GI/Abdominal GI/Abdominal Exam: Normal Bowel Sounds, Non Distended Assessment and Plan - Patient Problems (1) Colonic obstruction Current Visit: Yes Status: Resolved (2) Rectal carcinoma Current Visit: Yes Status: Acute - Assessment / Plan Additional Assessment/Plan Details: This point I think we can stop his [employer] pump. Adjust the amount of potassium in his TPN. Will order [place]
[2016-11-05] MEDS: HYDROcodone-APAP 7.5 MG-325 MG TABLET PO PRN ×2 (15:33→19:04)
[2016-11-05] MEDS: MULTIVITAMIN IV SCH ×3 (19:05)
[2016-11-05] MEDS: [UNRECOGNIZED DRUG - OTHER] IV SCH ×3 (19:05)
[2016-11-05] MEDS: CALCIUM IV SCH ×3 (19:05)
[2016-11-05] MEDS: AA DEXT IV SCH ×3 (19:05)
[2016-11-05] MEDS: LYTES IV SCH ×3 (19:05)
[2016-11-05] MEDS: Fat Emulsions Inj 20% 250 ML IV SCH (20:28)
[2016-11-05] MEDS: ENOXAPARIN SODIUM 80 MG/0.8 ML SYRINGE SUBCUT SCH (20:28)
[2016-11-06] MEDS: Ampicillin/Sulbactam Inj 3 GM in Sodium Chloride 0.9% 100 ML IV SCH (04:55)
[2016-11-06 05:15] LABS: BASOPHILS # (AUTO) 0.01 10*3/UL; BASOPHILS % (AUTO) 0.2 % (0-1); EOSINOPHILS # (AUTO) 0.03 10*3/UL; EOSINOPHILS % (AUTO) 0.7 % (0-8); HEMATOCRIT 27.3 % (42.0-52.0); HEMOGLOBIN 8.5 g/dL (14.0-18.0); LYMPHOCYTES # (AUTO) 0.93 10*3/uL; MEAN CORPUSCULAR HEMOGLOBIN 29.4 PG (27-31); MEAN CORPUSCULAR HGB CONC 31.1 g/dL (33-37); MEAN CORPUSCULAR VOLUME 94.5 FL (80-90); MEAN PLATELET VOLUME 12.5 FL (7.4-12.2); MONOCYTES # (AUTO) 0.49 10*3/UL (0.3-0.8); NEUTROPHILS # (AUTO) 2.59 10*3/UL; NEUTROPHILS % (AUTO) 63.6 % (50-80); RED BLOOD COUNT 2.89 10^6/uL (4.70-6.10)
[2016-11-06 05:28] LABS: BLOOD UREA NITROGEN 24 mg/dL (7-22); BUN/CREATININE RATIO 34.28 (6-20); CALCIUM 8.2 mg/dL (8.7-10.7); EST GLOMERULAR FILTRATION > 60 (>60 ml/min/1.73m(2))
[2016-11-06 05:48] LABS: PLATELET MORPHOLOGY COMMENT NORMAL MORPHOLOGY (NORM); RBC MORPHOLOGY COMMENT SEE COMMENTS (NORM); WBC MORPHOLOGY COMMENT NORMAL MORPHOLOGY (NORM)
[2016-11-06] MEDS: Insulin Lispro Flexpen 300 UNIT/3 ML INSULN.PEN SUBCUT SCH ×4 (07:27→20:10)
[2016-11-06] MEDS: Famotidine Inj 20 MG in Normal Saline Flush 10 ML IVP SCH (09:40)
[2016-11-06] MEDS: POTASSIUM CHLORIDE 20 MEQ TAB PO SCH ×3 (09:41→20:07)
[2016-11-06] MEDS: METOPROLOL SUCCINATE 25 MG SR 24H TABLET PO SCH (09:41)
[2016-11-06] MEDS: TAMSULOSIN 0.4 MG CAPSULE PO SCH (09:41)
[2016-11-06] MEDS: ENOXAPARIN SODIUM 80 MG/0.8 ML SYRINGE SUBCUT SCH (09:47)
--- NOTE | 2016-11-06 10:23 | PDOC(PROG) ---
Date and Time of Service: 11/06/2016 10:20 AM Interval History: Subjective Patient denying new symptoms. Pain seemed to be controlled with the oral Jackson. Objective : Data - Labs CBC and BMP: 11/06/16 04:44 11/06/16 04:44 Labs - Last 24 Hours: Laboratory Results 11/06/16 Range/Units 04:44 WBC 4.08 L (4.8-10.8) 10^3/uL RBC 2.89 L (4.70-6.10) 10^6/uL Hgb 8.5 L (14.0-18.0) g/dL Hct 27.3 L (42.0-52.0) % MCV 94.5 H (80-90) FL MCH 29.4 (27-31) PG MCHC 31.1 L (33-37) g/dL RDW Std Deviation 67.1 H (39-50) fL RDW Coeff of Antonio 20.4 H (11.5-14.5) % Plt Count 62 L (140-350) 10*3/uL MPV 12.5 H (7.4-12.2) FL Immature Gran % (Auto) 0.7 (0-5) % Neut % (Auto) 63.6 (50-80) % Lymph % (Auto) 22.8 (10-50) % Sutter % (Auto) 12.0 (5-15) % Eos % (Auto) 0.7 (0-8) % Baso % (Auto) 0.2 (0-1) % Immature Gran # (Auto) 0.03 10*3/UL Neut # (Auto) 2.59 10*3/UL Lymph # (Auto) 0.93 10*3/uL Sutter # (Auto) 0.49 (0.3-0.8) 10*3/UL Eos # (Auto) 0.03 10*3/UL Baso # (Auto) 0.01 10*3/UL WBC Morphology Comment Normal morphology (NORM) Plt Morphology Comment Normal morphology (NORM) RBC Morph Comment See comments (NORM) Sodium 139 (135-145) meq/L Potassium 3.1 L (3.8-5.2) meq/L Chloride 106 (98-112) meq/L Carbon Dioxide 28 (23-33) meq/L Anion Gap 5 (5-20) BUN 24 H (7-22) mg/dL Creatinine 0.7 (0.70-1.50) mg/dL Estimated GFR > 60 (>60 ml/min/1.73m(2)) BUN/Creatinine Ratio 34.28 H (6-20) Glucose 223 H (78-110) mg/dL Calculated Osmolality 298.0 H (267-292) mOsm/kg Calcium 8.2 L (8.7-10.7) mg/dL Objective : Exam - General General Appearance: No Acute Distress, Cooperative - Head Head Exam: Normal Inspection - Eye Eye Exam: Normal Appearance - ENT ENT Exam: Normal Exam - Neck Neck Exam: Normal Inspection - Respiratory Respiratory Exam: Clear to Auscultation - Bilaterally - Cardiovascular Cardiovascular Exam: RRR - GI/Abdominal GI/Abdominal Exam: Normal Bowel Sounds, Non Distended, Soft Additional GI/Abdominal Exam Details: Colostomy in place. Minimal tenderness in the right upper quadrant - Rectal Rectal Exam: Deferred - External Exam: Deferred - Extremities Extremities Exam: Normal Inspection - Back Back Exam: Normal Inspection - Neurological Neurological Exam: Alert, Oriented x 3, CN II-XII Intact, Moves All Extremities Equally - Psychiatric Psychiatric Exam: Normal Affect Assessment and Plan - Patient Problems (1) Colonic obstruction Current Visit: Yes Status: Resolved Comment: Status post colostomy day 3, discussed with Dr. Jeter will DC the antibiotics. His hemoglobin a little bit dropped to recheck again if it is still low will probably give him transfusion. Regarding his chemotherapy per my discussion with Dr. Steffany Clark wants him to wait for 2 weeks before restarting his chemotherapy (2) History of DVT (deep vein thrombosis) Current Visit: Yes Status: Acute Comment: His platelets dropped so we'll switch him to Xarelto instead of the Lovenox. We'll give it to him tonight (3) Hypokalemia Current Visit: Yes Status: Acute Comment: Potassium is coming up continue replacement (4) Weight loss Current Visit: Yes Status: Acute Comment: We'll try to wean him off the TPN today (5) Diabetes mellitus type II, controlled Current Visit: Yes Status: Acute Comment: Continue sliding scale Qualifiers: Diabetes mellitus complication status: without complication Diabetes mellitus fci insulin use: without fci use Qualified Description : Controlled type 2 diabetes mellitus without complication, without long-term current use of insulin Qualifier Code(s): (E11.9) Type 2 diabetes mellitus without complications (6) Anemia, blood loss Current Visit: Yes Status: Acute Comment: His hemoglobin lower than yesterday we'll recheck it again if lower then will transfuse him. (7) Thrombocytopenia Current Visit: Yes Status: Acute Comment: Maybe medication related, will stop Lovenox, stop famotidine and stop ampicillin. We'll recheck it again tomorrow. Photo / Body Diagrams - Uploaded Photos Uploaded Photos:
[2016-11-06] MEDS: HYDROcodone-APAP 7.5 MG-325 MG TABLET PO PRN (10:27)
--- NOTE | 2016-11-06 13:04 | PDOC(PROG) ---
Subjective Post Op Day: postop day 3 Pain Management: PO Date and Time of Service: 11/06/2016 at 12 noon Interval History: Patient is doing very well having no complaints. Tolerating oral pain pills Objective : Data - Labs CBC and BMP: 11/06/16 04:44 11/06/16 04:44 Labs - Last 24 Hours: Laboratory Results 11/06/16 Range/Units 04:44 WBC 4.08 L (4.8-10.8) 10^3/uL RBC 2.89 L (4.70-6.10) 10^6/uL Hgb 8.5 L (14.0-18.0) g/dL Hct 27.3 L (42.0-52.0) % MCV 94.5 H (80-90) FL MCH 29.4 (27-31) PG MCHC 31.1 L (33-37) g/dL RDW Std Deviation 67.1 H (39-50) fL RDW Coeff of Antonio 20.4 H (11.5-14.5) % Plt Count 62 L (140-350) 10*3/uL MPV 12.5 H (7.4-12.2) FL Immature Gran % (Auto) 0.7 (0-5) % Neut % (Auto) 63.6 (50-80) % Lymph % (Auto) 22.8 (10-50) % Thomas % (Auto) 12.0 (5-15) % Eos % (Auto) 0.7 (0-8) % Baso % (Auto) 0.2 (0-1) % Immature Gran # (Auto) 0.03 10*3/UL Neut # (Auto) 2.59 10*3/UL Lymph # (Auto) 0.93 10*3/uL Thomas # (Auto) 0.49 (0.3-0.8) 10*3/UL Eos # (Auto) 0.03 10*3/UL Baso # (Auto) 0.01 10*3/UL WBC Morphology Comment Normal morphology (NORM) Plt Morphology Comment Normal morphology (NORM) RBC Morph Comment See comments (NORM) Sodium 139 (135-145) meq/L Potassium 3.1 L (3.8-5.2) meq/L Chloride 106 (98-112) meq/L Carbon Dioxide 28 (23-33) meq/L Anion Gap 5 (5-20) BUN 24 H (7-22) mg/dL Creatinine 0.7 (0.70-1.50) mg/dL Estimated GFR > 60 (>60 ml/min/1.73m(2)) BUN/Creatinine Ratio 34.28 H (6-20) Glucose 223 H (78-110) mg/dL Calculated Osmolality 298.0 H (267-292) mOsm/kg Calcium 8.2 L (8.7-10.7) mg/dL - Vital Signs Vital Signs and I&O: Vital Signs - Last Taken Temperature 98.4 F 11/06/16 11:01 Pulse Rate 85 11/06/16 11:01 Respiratory Rate 17 11/06/16 11:01 Blood Pressure 126/66 11/06/16 11:01 Pulse Ox 94 11/06/16 11:01 Intake and Output (24hr x 4 totals) 11/04/16 11/05/16 11/06/16 11/07/16 05:59 05:59 05:59 05:59 Intake Total 4986 4299 2684 1016 Output Total 4020 2100 2010 550 Balance 966 2199 674 466 Objective : Exam - GI/Abdominal GI/Abdominal Exam: Non Tender, Non Distended, Soft Assessment and Plan - Patient Problems (1) Colonic obstruction Current Visit: Yes Status: Resolved (2) Rectal carcinoma Current Visit: Yes Status: Acute - Assessment / Plan Additional Assessment/Plan Details: Patient is hemoglobins drifting a little bit again I do not think the patient is actively bleeding. It his hemoglobin drops further may need a blood transfusion. Discusses this with Dr. Tanner. I think small is a reasonable expectation for and being able to be discharged home
[2016-11-06 13:06] LABS: HEMATOCRIT 29.5 % (42.0-52.0); HEMOGLOBIN 9.3 g/dL (14.0-18.0)
[2016-11-06] MEDS: MULTIVITAMIN IV SCH ×3 (18:48)
[2016-11-06] MEDS: AA DEXT IV SCH ×3 (18:48)
[2016-11-06] MEDS: CALCIUM IV SCH ×3 (18:48)
[2016-11-06] MEDS: LYTES IV SCH ×3 (18:48)
[2016-11-06] MEDS: [UNRECOGNIZED DRUG - OTHER] IV SCH ×3 (18:48)
[2016-11-06] MEDS ORDERED: Rivaroxaban Tab 10 MG TAB PO SCH (21:00)
[2016-11-07 05:22] LABS: BASOPHILS # (AUTO) 0.01 10*3/UL; BASOPHILS % (AUTO) 0.2 % (0-1); EOSINOPHILS # (AUTO) 0.03 10*3/UL; EOSINOPHILS % (AUTO) 0.7 % (0-8); HEMATOCRIT 27.4 % (42.0-52.0); HEMOGLOBIN 8.7 g/dL (14.0-18.0); LYMPHOCYTES # (AUTO) 0.81 10*3/uL; MEAN CORPUSCULAR HEMOGLOBIN 29.9 PG (27-31); MEAN CORPUSCULAR HGB CONC 31.8 g/dL (33-37); MEAN CORPUSCULAR VOLUME 94.2 FL (80-90); MEAN PLATELET VOLUME 11.6 FL (7.4-12.2); MONOCYTES # (AUTO) 0.42 10*3/UL (0.3-0.8); MONOCYTES % (AUTO) 10.1 % (5-15); NEUTROPHILS # (AUTO) 2.86 10*3/UL; RED BLOOD COUNT 2.91 10^6/uL (4.70-6.10)
[2016-11-07 05:34] LABS: BLOOD UREA NITROGEN 23 mg/dL (7-22); BUN/CREATININE RATIO 32.85 (6-20); CALCIUM 8.3 mg/dL (8.7-10.7); EST GLOMERULAR FILTRATION > 60 (>60 ml/min/1.73m(2))
[2016-11-07 05:58] LABS: PLATELET MORPHOLOGY COMMENT NORMAL MORPHOLOGY (NORM); WBC MORPHOLOGY COMMENT NORMAL MORPHOLOGY (NORM)
[2016-11-07 05:59] LABS: RBC MORPHOLOGY COMMENT SEE COMMENTS (NORM)
[2016-11-07] MEDS ORDERED: PANTOPRAZOLE 40 MG TABLET PO SCH (07:00)
[2016-11-07] MEDS: Insulin Lispro Flexpen 300 UNIT/3 ML INSULN.PEN SUBCUT SCH ×2 (07:21→11:11)
--- NOTE | 2016-11-07 09:17 | PDOC(PROG) ---
Subjective Post Op Day: postop day 4 Date and Time of Service: 11/07/2016 at 920 Interval History: Patient is doing very well having no problems. He now has formed stool in his colostomy. Objective : Data - Labs CBC and BMP: 11/07/16 04:42 11/07/16 04:42 Labs - Last 24 Hours: Laboratory Results 11/06/16 11/07/16 Range/Units 13:05 04:42 WBC 4.15 L (4.8-10.8) 10^3/uL RBC 2.91 L (4.70-6.10) 10^6/uL Hgb 9.3 L 8.7 L (14.0-18.0) g/dL Hct 29.5 L 27.4 L (42.0-52.0) % MCV 94.2 H (80-90) FL MCH 29.9 (27-31) PG MCHC 31.8 L (33-37) g/dL RDW Std Deviation 69.2 H (39-50) fL RDW Coeff of Antonio 21.3 H (11.5-14.5) % Plt Count 110 L (140-350) 10*3/uL MPV 11.6 (7.4-12.2) FL Immature Gran % (Auto) 0.5 (0-5) % Neut % (Auto) 69.0 (50-80) % Lymph % (Auto) 19.5 (10-50) % [place] % (Auto) 10.1 (5-15) % Eos % (Auto) 0.7 (0-8) % Baso % (Auto) 0.2 (0-1) % Immature Gran # (Auto) 0.02 10*3/UL Neut # (Auto) 2.86 10*3/UL Lymph # (Auto) 0.81 10*3/uL [place] # (Auto) 0.42 (0.3-0.8) 10*3/UL Eos # (Auto) 0.03 10*3/UL Baso # (Auto) 0.01 10*3/UL WBC Morphology Comment Normal morphology (NORM) Plt Morphology Comment Normal morphology (NORM) RBC Morph Comment See comments (NORM) Sodium 140 (135-145) meq/L Potassium 3.0 L (3.8-5.2) meq/L Chloride 108 (98-112) meq/L Carbon Dioxide 24 (23-33) meq/L Anion Gap 8 (5-20) BUN 23 H (7-22) mg/dL Creatinine 0.7 (0.70-1.50) mg/dL Estimated GFR > 60 (>60 ml/min/1.73m(2)) BUN/Creatinine Ratio 32.85 H (6-20) Glucose 183 H (78-110) mg/dL Calculated Osmolality 298.0 H (267-292) mOsm/kg Calcium 8.3 L (8.7-10.7) mg/dL - Vital Signs Vital Signs and I&O: Vital Signs - Last Taken Temperature 97.5 F 11/07/16 07:17 Pulse Rate 85 11/07/16 07:17 Respiratory Rate 18 11/07/16 07:17 Blood Pressure 134/75 11/07/16 07:17 Pulse Ox 95 11/07/16 07:17 Intake and Output (24hr x 4 totals) 11/05/16 11/06/16 11/07/16 11/08/16 05:59 05:59 05:59 05:59 Intake Total 4299 2684 2362 240 Output Total 2099 2009 1999 Balance 2199 056 132 240 Objective : Exam - General General Appearance: No Acute Distress, Cooperative - GI/Abdominal GI/Abdominal Exam: Normal Bowel Sounds, Non Tender, Non Distended, Soft Assessment and Plan - Patient Problems (1) Colonic obstruction Current Visit: Yes Status: Resolved (2) Rectal carcinoma Current Visit: Yes Status: Acute - Assessment / Plan Additional Assessment/Plan Details: Patient is doing very well. At this point think the surgical standpoint he can go home. Follow-up with me on of next week.
[2016-11-07] MEDS: TAMSULOSIN 0.4 MG CAPSULE PO SCH (09:31)
[2016-11-07] MEDS: POTASSIUM CHLORIDE 20 MEQ TAB PO SCH (09:31)
[2016-11-07] MEDS: METOPROLOL SUCCINATE 25 MG SR 24H TABLET PO SCH (09:31)
[2016-11-07 11:08] VITALS: RESP 16; TEMP 98.4
[2016-11-07] MEDS ORDERED: POTASSIUM CHLORIDE 20 MEQ TAB PO ONE (12:29)
--- NOTE | 2016-11-07 12:48 | DCSUMMARY ---
Hospitalization Summary Hospital Course: Final Discharge Diagnosis: Diagnostic Data, Laboratory Data, and Procedures of Signifigance: Laboratory Results 10/29/16 10/29/16 10/30/16 Range/Units 16:00 16:34 06:50 WBC 7.68 9.48 (4.8-10.8) 10^3/uL RBC 4.10 L 3.88 L (4.70-6.10) 10^6/uL Hgb 12.0 L 11.1 L (14.0-18.0) g/dL Hct 37.0 L 35.7 L (42.0-52.0) % MCV 90.2 H 92.0 H (80-90) FL MCH 29.3 28.6 (27-31) PG MCHC 32.4 L 31.1 L (33-37) g/dL RDW Std Deviation 57.7 H 59.5 H (39-50) fL RDW Coeff of Antonio 20.0 H 20.2 H (11.5-14.5) % Plt Count 206 154 (140-350) 10*3/uL MPV 9.8 11.5 (7.4-12.2) FL Immature Gran % (Auto) 0.1 (0-5) % Neut % (Auto) 82.6 H (50-80) % Lymph % (Auto) 9.2 L (10-50) % Gibson % (Auto) 8.0 (5-15) % Eos % (Auto) 0 (0-8) % Baso % (Auto) 0.1 (0-1) % Immature Gran # (Auto) 0.01 10*3/UL Neut # (Auto) 7.83 10*3/UL Lymph # (Auto) 0.87 10*3/uL Gibson # (Auto) 0.76 (0.3-0.8) 10*3/UL Eos # (Auto) 0 10*3/UL Baso # (Auto) 0.01 10*3/UL Neutrophils % (Manual) 94 H (50-80) % Band Neutrophils % 0 (0-10) % Lymphocytes % (Manual) 5 L (10-50) % Monocytes % (Manual) 1 (0-12) % Eosinophils % (Manual) 0 (0-8) % Basophils % (Manual) 0 (0-1) % Metamyelocytes % Not Reportable Myelocytes % Not Reportable Promyelocytes % Not Reportable Blast Cells Not Reportable WBC Morphology Comment See comments Normal morphology (NORM) Plt Morphology Comment Normal morphology Normal morphology (NORM) RBC Morph Comment Normal morphology Normal morphology (NORM) PT 10.7 (9.7-11.4) secs INR 1.04 (0.00-5.90) N/A Sodium 143 147 H (135-145) meq/L Potassium 3.1 L 3.0 L (3.8-5.2) meq/L Chloride 110 112 (98-112) meq/L Carbon Dioxide 19 L 23 (23-33) meq/L Anion Gap 14 12 (5-20) BUN 24 H 23 H (7-22) mg/dL Creatinine 0.8 0.9 (0.70-1.50) mg/dL Estimated GFR > 60 > 60 (>60 ml/min/1.73m(2)) BUN/Creatinine Ratio 30.00 H 25.55 H (6-20) Glucose 187 H 117 H (78-110) mg/dL Mean Blood Glucose 121.459 mg/dL Hemoglobin A1c 6.23 H (4.2-6.0) % Calculated Osmolality 304.0 H 308.0 H (267-292) mOsm/kg Calcium 8.8 8.8 (8.7-10.7) mg/dL Phosphorus (2.4-4.3) mg/dl Magnesium 1.7 2.2 (1.6-2.4) mg/dL Total Bilirubin 0.8 0.7 (0.3-1.2) mg/dL AST 42 36 (21-57) IU/L ALT 52 52 (21-72) IU/L Alkaline Phosphatase 260 H 230 H (38-126) IU/L Total Protein 6.8 5.8 L (6.1-8.0) g/dL Albumin 3.4 L 3.0 L (3.5-4.8) g/dL Globulin 3.4 2.8 (2.50-4.10) g/dL Albumin/Globulin Ratio 1.00 L 1.00 L (1.3-2.0) mg/g Prealbumin 20 (19 - 38) mg/dL Triglycerides (44-200) mg/dL Cholesterol (120-200) mg/dL LDL Cholesterol, Calc mg/dL VLDL Cholesterol (0-40) mg/dL HDL Cholesterol (40-150) mg/dL Cholesterol/HDL Ratio (0-4.0) RATIO Blood Type Antibody Screen 10/30/16 10/31/16 11/01/16 Range/Units 19:20 06:27 05:15 WBC 6.62 8.09 (4.8-10.8) 10^3/uL RBC 3.67 L 4.04 L (4.70-6.10) 10^6/uL Hgb 10.5 L 11.9 L (14.0-18.0) g/dL Hct 33.9 L 36.6 L (42.0-52.0) % MCV 92.4 H 90.6 H (80-90) FL MCH 28.6 29.5 (27-31) PG MCHC 31.0 L 32.5 L (33-37) g/dL RDW Std Deviation 60.8 H 62.4 H (39-50) fL RDW Coeff of Antonio 20.1 H 20.1 H (11.5-14.5) % Plt Count 125 L 183 (140-350) 10*3/uL MPV 10.9 10.0 (7.4-12.2) FL Immature Gran % (Auto) 0.2 0.2 (0-5) % Neut % (Auto) 83.5 H 77.4 (50-80) % Lymph % (Auto) 8.6 L 11.7 (10-50) % [place] % (Auto) 7.3 10.5 (5-15) % Eos % (Auto) 0.2 0.1 (0-8) % Baso % (Auto) 0.2 0.1 (0-1) % Immature Gran # (Auto) 0.01 0.02 10*3/UL Neut # (Auto) 5.54 6.25 10*3/UL Lymph # (Auto) 0.57 0.95 10*3/uL [place] # (Auto) 0.48 0.85 H (0.3-0.8) 10*3/UL Eos # (Auto) 0.01 0.01 10*3/UL Baso # (Auto) 0.01 0.01 10*3/UL Neutrophils % (Manual) (50-80) % Band Neutrophils % (0-10) % Lymphocytes % (Manual) (10-50) % Monocytes % (Manual) (0-12) % Eosinophils % (Manual) (0-8) % Basophils % (Manual) (0-1) % Metamyelocytes % Myelocytes % Promyelocytes % Blast Cells WBC Morphology Comment Normal morphology Normal morphology (NORM) Plt Morphology Comment See comments Normal morphology (NORM) RBC Morph Comment See comments Normal morphology (NORM) PT (9.7-11.4) secs INR (0.00-5.90) N/A Sodium 142 143 (135-145) meq/L Potassium 2.6 L 3.2 L (3.8-5.2) meq/L Chloride 108 104 (98-112) meq/L Carbon Dioxide 24 28 (23-33) meq/L Anion Gap 10 11 (5-20) BUN 18 22 (7-22) mg/dL Creatinine 0.7 0.7 (0.70-1.50) mg/dL Estimated GFR > 60 > 60 (>60 ml/min/1.73m(2)) BUN/Creatinine Ratio 25.71 H 31.42 H (6-20) Glucose 327 H 337 H (78-110) mg/dL Mean Blood Glucose mg/dL Hemoglobin A1c (4.2-6.0) % Calculated Osmolality 308.0 H 311.0 H (267-292) mOsm/kg Calcium 8.4 L 8.9 (8.7-10.7) mg/dL Phosphorus 1.4 L 3.0 (2.4-4.3) mg/dl Magnesium 2.0 1.9 (1.6-2.4) mg/dL Total Bilirubin 0.5 0.5 (0.3-1.2) mg/dL AST 32 33 (21-57) IU/L ALT 44 47 (21-72) IU/L Alkaline Phosphatase 191 H 217 H (38-126) IU/L Total Protein 5.6 L 6.3 (6.1-8.0) g/dL Albumin 2.8 L 3.1 L (3.5-4.8) g/dL Globulin 2.8 3.2 (2.50-4.10) g/dL Albumin/Globulin Ratio 1.00 L 0.90 L (1.3-2.0) mg/g Prealbumin (19 - 38) mg/dL Triglycerides (44-200) mg/dL Cholesterol (120-200) mg/dL LDL Cholesterol, Calc mg/dL VLDL Cholesterol (0-40) mg/dL HDL Cholesterol (40-150) mg/dL Cholesterol/HDL Ratio (0-4.0) RATIO Blood Type B POSITIVE Antibody Screen Negative 11/02/16 11/02/16 11/03/16 Range/Units 04:55 15:15 05:55 WBC 4.66 L 3.57 L (4.8-10.8) 10^3/uL RBC 3.68 L 3.64 L (4.70-6.10) 10^6/uL Hgb 10.8 L 10.9 L (14.0-18.0) g/dL Hct 33.8 L 33.5 L (42.0-52.0) % MCV 91.8 H 92.0 H (80-90) FL MCH 29.3 29.9 (27-31) PG MCHC 32.0 L 32.5 L (33-37) g/dL RDW Std Deviation 64.0 H 65.5 H (39-50) fL RDW Coeff of Antonio 20.4 H 21.1 H (11.5-14.5) % Plt Count 141 149 (140-350) 10*3/uL MPV 10.9 11.0 (7.4-12.2) FL Immature Gran % (Auto) 0.2 (0-5) % Neut % (Auto) 70.9 (50-80) % Lymph % (Auto) 15.2 (10-50) % [place] % (Auto) 13.1 (5-15) % Eos % (Auto) 0.4 (0-8) % Baso % (Auto) 0.2 (0-1) % Immature Gran # (Auto) 0.01 10*3/UL Neut # (Auto) 3.30 10*3/UL Lymph # (Auto) 0.71 10*3/uL [place] # (Auto) 0.61 (0.3-0.8) 10*3/UL Eos # (Auto) 0.02 10*3/UL Baso # (Auto) 0.01 10*3/UL Neutrophils % (Manual) (50-80) % Band Neutrophils % (0-10) % Lymphocytes % (Manual) (10-50) % Monocytes % (Manual) (0-12) % Eosinophils % (Manual) (0-8) % Basophils % (Manual) (0-1) % Metamyelocytes % Myelocytes % Promyelocytes % Blast Cells WBC Morphology Comment Normal morphology (NORM) Plt Morphology Comment Normal morphology (NORM) RBC Morph Comment Normal morphology (NORM) PT (9.7-11.4) secs INR (0.00-5.90) N/A Sodium 140 140 (135-145) meq/L Potassium 3.6 L 3.9 (3.8-5.2) meq/L Chloride 102 101 (98-112) meq/L Carbon Dioxide 30 29 (23-33) meq/L Anion Gap 8 10 (5-20) BUN 28 H 31 H (7-22) mg/dL Creatinine 0.6 L 0.6 L (0.70-1.50) mg/dL Estimated GFR > 60 > 60 (>60 ml/min/1.73m(2)) BUN/Creatinine Ratio 46.66 H 51.66 H (6-20) Glucose 292 H 332 H (78-110) mg/dL Mean Blood Glucose mg/dL Hemoglobin A1c (4.2-6.0) % Calculated Osmolality 306.0 H 309.0 H (267-292) mOsm/kg Calcium 8.6 L 8.5 L (8.7-10.7) mg/dL Phosphorus 3.6 (2.4-4.3) mg/dl Magnesium 1.9 (1.6-2.4) mg/dL Total Bilirubin 0.7 (0.3-1.2) mg/dL AST 51 (21-57) IU/L ALT 55 (21-72) IU/L Alkaline Phosphatase 213 H (38-126) IU/L Total Protein 5.8 L (6.1-8.0) g/dL Albumin 2.9 L (3.5-4.8) g/dL Globulin 2.9 (2.50-4.10) g/dL Albumin/Globulin Ratio 1.00 L (1.3-2.0) mg/g Prealbumin (19 - 38) mg/dL Triglycerides 110 (44-200) mg/dL Cholesterol 123 (120-200) mg/dL LDL Cholesterol, Calc 50.000 mg/dL VLDL Cholesterol 22 (0-40) mg/dL HDL Cholesterol 51 (40-150) mg/dL Cholesterol/HDL Ratio 2.41 (0-4.0) RATIO Blood Type B POSITIVE Antibody Screen Negative 11/04/16 11/04/16 11/05/16 Range/Units 04:24 13:21 06:05 WBC 3.46 L 5.19 (4.8-10.8) 10^3/uL RBC 2.88 L 3.20 L (4.70-6.10) 10^6/uL Hgb 8.2 L 9.3 L 9.6 L (14.0-18.0) g/dL Hct 27.4 L 29.6 L 30.5 L (42.0-52.0) % MCV 95.1 H 95.3 H (80-90) FL MCH 28.5 30.0 (27-31) PG MCHC 29.9 L 31.5 L (33-37) g/dL RDW Std Deviation 69.2 H 69.4 H (39-50) fL RDW Coeff of Antonio 21.3 H 21.1 H (11.5-14.5) % Plt Count 95 L 110 L (140-350) 10*3/uL MPV 10.6 11.6 (7.4-12.2) FL Immature Gran % (Auto) 0.3 0.4 (0-5) % Neut % (Auto) 69.0 76.3 (50-80) % Lymph % (Auto) 19.7 12.1 (10-50) % [place] % (Auto) 9.8 10.2 (5-15) % Eos % (Auto) 0.9 0.6 (0-8) % Baso % (Auto) 0.3 0.4 (0-1) % Immature Gran # (Auto) 0.01 0.02 10*3/UL Neut # (Auto) 2.39 3.96 10*3/UL Lymph # (Auto) 0.68 0.63 10*3/uL [place] # (Auto) 0.34 0.53 (0.3-0.8) 10*3/UL Eos # (Auto) 0.03 0.03 10*3/UL Baso # (Auto) 0.01 0.02 10*3/UL Neutrophils % (Manual) (50-80) % Band Neutrophils % (0-10) % Lymphocytes % (Manual) (10-50) % Monocytes % (Manual) (0-12) % Eosinophils % (Manual) (0-8) % Basophils % (Manual) (0-1) % Metamyelocytes % Myelocytes % Promyelocytes % Blast Cells WBC Morphology Comment Normal morphology Normal morphology (NORM) Plt Morphology Comment Normal morphology Normal morphology (NORM) RBC Morph Comment See comments See comments (NORM) PT (9.7-11.4) secs INR (0.00-5.90) N/A Sodium 141 138 (135-145) meq/L Potassium 4.0 2.8 L D (3.8-5.2) meq/L Chloride 103 102 (98-112) meq/L Carbon Dioxide 30 28 (23-33) meq/L Anion Gap 8 8 (5-20) BUN 28 H 24 H (7-22) mg/dL Creatinine 0.7 0.7 (0.70-1.50) mg/dL Estimated GFR > 60 > 60 (>60 ml/min/1.73m(2)) BUN/Creatinine Ratio 40.00 H 34.28 H (6-20) Glucose 231 H 232 H (78-110) mg/dL Mean Blood Glucose mg/dL Hemoglobin A1c (4.2-6.0) % Calculated Osmolality 304.0 H 296.0 H (267-292) mOsm/kg Calcium 8.2 L 8.3 L (8.7-10.7) mg/dL Phosphorus (2.4-4.3) mg/dl Magnesium (1.6-2.4) mg/dL Total Bilirubin (0.3-1.2) mg/dL AST (21-57) IU/L ALT (21-72) IU/L Alkaline Phosphatase (38-126) IU/L Total Protein (6.1-8.0) g/dL Albumin (3.5-4.8) g/dL Globulin (2.50-4.10) g/dL Albumin/Globulin Ratio (1.3-2.0) mg/g Prealbumin (19 - 38) mg/dL Triglycerides (44-200) mg/dL Cholesterol (120-200) mg/dL LDL Cholesterol, Calc mg/dL VLDL Cholesterol (0-40) mg/dL HDL Cholesterol (40-150) mg/dL Cholesterol/HDL Ratio (0-4.0) RATIO Blood Type Antibody Screen 11/06/16 11/06/16 11/07/16 Range/Units 04:44 13:05 04:42 WBC 4.08 L 4.15 L (4.8-10.8) 10^3/uL RBC 2.89 L 2.91 L (4.70-6.10) 10^6/uL Hgb 8.5 L 9.3 L 8.7 L (14.0-18.0) g/dL Hct 27.3 L 29.5 L 27.4 L (42.0-52.0) % MCV 94.5 H 94.2 H (80-90) FL MCH 29.4 29.9 (27-31) PG MCHC 31.1 L 31.8 L (33-37) g/dL RDW Std Deviation 67.1 H 69.2 H (39-50) fL RDW Coeff of Antonio 20.4 H 21.3 H (11.5-14.5) % Plt Count 62 L 110 L (140-350) 10*3/uL MPV 12.5 H 11.6 (7.4-12.2) FL Immature Gran % (Auto) 0.7 0.5 (0-5) % Neut % (Auto) 63.6 69.0 (50-80) % Lymph % (Auto) 22.8 19.5 (10-50) % [place] % (Auto) 12.0 10.1 (5-15) % Eos % (Auto) 0.7 0.7 (0-8) % Baso % (Auto) 0.2 0.2 (0-1) % Immature Gran # (Auto) 0.03 0.02 10*3/UL Neut # (Auto) 2.59 2.86 10*3/UL Lymph # (Auto) 0.93 0.81 10*3/uL [place] # (Auto) 0.49 0.42 (0.3-0.8) 10*3/UL Eos # (Auto) 0.03 0.03 10*3/UL Baso # (Auto) 0.01 0.01 10*3/UL Neutrophils % (Manual) (50-80) % Band Neutrophils % (0-10) % Lymphocytes % (Manual) (10-50) % Monocytes % (Manual) (0-12) % Eosinophils % (Manual) (0-8) % Basophils % (Manual) (0-1) % Metamyelocytes % Myelocytes % Promyelocytes % Blast Cells WBC Morphology Comment Normal morphology Normal morphology (NORM) Plt Morphology Comment Normal morphology Normal morphology (NORM) RBC Morph Comment See comments See comments (NORM) PT (9.7-11.4) secs INR (0.00-5.90) N/A Sodium 139 140 (135-145) meq/L Potassium 3.1 L 3.0 L (3.8-5.2) meq/L Chloride 106 108 (98-112) meq/L Carbon Dioxide 28 24 (23-33) meq/L Anion Gap 5 8 (5-20) BUN 24 H 23 H (7-22) mg/dL Creatinine 0.7 0.7 (0.70-1.50) mg/dL Estimated GFR > 60 > 60 (>60 ml/min/1.73m(2)) BUN/Creatinine Ratio 34.28 H 32.85 H (6-20) Glucose 223 H 183 H (78-110) mg/dL Mean Blood Glucose mg/dL Hemoglobin A1c (4.2-6.0) % Calculated Osmolality 298.0 H 298.0 H (267-292) mOsm/kg Calcium 8.2 L 8.3 L (8.7-10.7) mg/dL Phosphorus (2.4-4.3) mg/dl Magnesium (1.6-2.4) mg/dL Total Bilirubin (0.3-1.2) mg/dL AST (21-57) IU/L ALT (21-72) IU/L Alkaline Phosphatase (38-126) IU/L Total Protein (6.1-8.0) g/dL Albumin (3.5-4.8) g/dL Globulin (2.50-4.10) g/dL Albumin/Globulin Ratio (1.3-2.0) mg/g Prealbumin (19 - 38) mg/dL Triglycerides (44-200) mg/dL Cholesterol (120-200) mg/dL LDL Cholesterol, Calc mg/dL VLDL Cholesterol (0-40) mg/dL HDL Cholesterol (40-150) mg/dL Cholesterol/HDL Ratio (0-4.0) RATIO Blood Type Antibody Screen Intake and Output (24hr x 4 totals) 11/05/16 11/06/16 11/07/16 11/08/16 05:59 05:59 05:59 05:59 Intake Total 4299 2684 2362 240 Output Total 2099 Balance 2199 674 362 40 Weight Obtain Weight Start: 10/29/16 16: 20 Freq: QAM Status: Active Document 11/05/16 07:00 [id number] (Rec: 11/05/16 10:39 [id number]) Document 11/06/16 10:21 [id number] (Rec: 11/06/16 10:22 [id number]) Document 11/07/16 07:00 [id number] (Rec: 11/07/16 08:36 [id number]) History and Physical pertinent to Admission: Past Medical History Medical History: 1. Hypertension. 2. diabetes. 3. Rectal carcinoma with liver metastasis. 4. Lower extremity DVT status post IVC filter placement. On Xarelto, last dose taken last night. 5. Loss of weight related to cancer. 6. 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 7. History of DVT in left lower extremity, with filter placement Surgical History: 1. Colonoscopy with this colon mass,. 2. Appendectomy. 3. Tonsillectomy and adenoidectomy Pertinent Family History: No family history of colon cancer or heart disease. Past Social History: for 49 years, has 2 children, served in [place] and actually has to [employer] from the service days. Does not smoke or drink. Course of Hospitalization: This a very 71-year-old gentleman with past medical history significant for diabetes, hypertension, recently diagnosed with rectal carcinoma with liver metastasis. He has been doing chemotherapy 3 cycles 2 weeks apart admitted with the epigastric and abdominal pain while in the hospital developed obstruction and increased side of his rectal mass through CT scan he also lost another 20 pounds. He had a loop colostomy done by Dr. brad Woods he did well postop with no apparent complications his change the colostomy bag with the help of the nurse is all on her own and she feels very confident that that she can do this and that would like to be discharged home patient is in stable condition he will follow with Dr. brad Woods as an outpatient. As per Dr. Clark he will hold off on his chemotherapy for 2 weeks he did receive some TPN through his [facility] while in the hospital. I sent for prescriptions of the Protonix and the Flomax On the date of discharge, the patient was examined: Gen.: No acute distress, alert, nontoxic Heart: Regular rate and rhythm, no murmurs, clicks, gallops, or rubs Lungs: Clear to auscultation bilaterally, breathing is nonlabored Abdomen/GI: Normal tones on auscultation, soft, nontender, nondistended Musculoskeletal/extremities: No clubbing, cyanosis, or edema Vitals reviewed and are listed below Vital Signs (24 hrs) Temp Pulse Resp BP Pulse Ox 11/07/16 11:07 98.4 F 71 16 129/77 93 11/07/16 07:17 97.5 F 85 18 134/75 95 11/07/16 04:46 97.4 F 67 16 153/83 94 11/06/16 20:58 97.6 F 72 16 130/78 96 11/06/16 18:56 74 17 11/06/16 16:18 98 F 74 17 123/76 95 Assessment and Plan: 1. As per discharge assessments above 2. Disposition: Home 3. Condition on discharge, stable and improved. 4. Diet: regular diet 5. Activities: resume normal activities 6. Follow-Up: 1. PCP 2. Will see Dr. brad Woods and his oncologist Dr. Clark 7. Medications at the Time of Discharge: Home Medications Medication Instructions Recorded Confirmed Type Hydrocodone Bit/Acetaminophen 1 tab PO Q4-6HRSPRN #50 tab 08/27/16 09/23/16 Clinic [[facility] 7.5-325 Tablet] Metoprolol Succinate [Toprol XL] 12.5 mg PO DAILY 08/31/16 09/23/16 History Potassium Chloride 40 meq PO BID #7 tab 09/02/16 09/23/16 Rx Aspirin [Aspir 81] 81 mg PO DAILY 09/07/16 09/23/16 History Rivaroxaban [Xarelto] 20 mg PO DAILY 10/29/16 10/29/16 History Pantoprazole Sodium [Protonix] 40 mg PO AC BK #30 tab 11/07/16 Rx Tamsulosin HCl [Flomax] 0.4 mg PO DAILY #30 cap 11/07/16 Rx 8. Time, care, counseling and coordination of care for this discharge is greater than 30 minutes. Exam - Vitals Vital Signs: Vital Signs Temperature 98.4 F Temperature Source Temporal Artery Scan Pulse Rate [Apical] 94 Pulse Rate [Pulse Oximeter] 71 Pulse Rate 88 Respiratory Rate [lower mid 20 abdomen] Respiratory Rate 16 Blood Pressure [Right Arm] 129/77 Blood Pressure 140/91 Pulse Ox 93 Oxygen Flow Rate [lower mid 1 abdomen] Oxygen Flow Rate 1 Oxygen Flow Rate 2 Oxygen Delivery Method Room Air Height 6 ft 2 in Weight 75.206 kg
== END 2016-11-07 14:23 | disposition home or self-care (01) | DRG 330 ==
LOC: MED/SURG 16:09 → OPS 11-03 10:14 → MED/SURG 11-03 13:56
PROVIDERS: ADMIT Family Medicine; ATTEND Family Medicine
PROC: 0D1M0Z4 Bypass Descending Colon to Cutaneous, Open Approach (ICD-10-PCS; principal; 2016-11-03 11:30)
DX: K56.60 Unspecified intestinal obstruction (principal); C20 Malignant neoplasm of rectum; C78.7 Secondary malignant neoplasm of liver and intrahepatic bile duct; D62 Acute posthemorrhagic anemia; E11.9 Type 2 diabetes mellitus without complications; I10 Essential (primary) hypertension; E87.6 Hypokalemia; R63.4 Abnormal weight loss; D69.6 Thrombocytopenia, unspecified
CPT/HCPCS: 36415; 71010; 74000; 74020; 74177; 76705; 80048; 80053; 80061; 82948; 83036; 83735; 84100; 84134; 85007; 85014; 85018; 85025; 85027; 85610; 86850; 86900; 86901; 93005; 93010; 94150; 94761; A4216; J0131; J0295; J1170; J1650; J2001; J2250; J2370; J2405; J3010; J3475; J3480; J7030; J7050; J7120

== ENCOUNTER → 2016-11-13 | Outpatient (CLI) | payer OTHER | LOC: MMPC 11:11 | PROVIDERS: ATTEND Surgery | DX: C20 Malignant neoplasm of rectum (principal); C78.7 Secondary malignant neoplasm of liver and intrahepatic bile duct; Z98.890 Other specified postprocedural states ==

== ENCOUNTER → 2016-12-08 | Outpatient (CLI) | payer OTHER ==
[2016-12-08 10:50] LABS: BASOPHILS # (AUTO) 0.03 10*3/UL; BASOPHILS % (AUTO) 0.5 % (0-1); EOSINOPHILS # (AUTO) 0.02 10*3/UL; EOSINOPHILS % (AUTO) 0.3 % (0-8); HEMATOCRIT 28.4 % (42.0-52.0); HEMOGLOBIN 9.1 g/dL (14.0-18.0); LYMPHOCYTES # (AUTO) 0.73 10*3/uL; MEAN CORPUSCULAR HEMOGLOBIN 32.5 PG (27-31); MEAN CORPUSCULAR VOLUME 101.4 FL (80-90); MEAN PLATELET VOLUME 10.1 FL (7.4-12.2); MONOCYTES # (AUTO) 0.14 10*3/UL (0.3-0.8); MONOCYTES % (AUTO) 2.4 % (5-15); NEUTROPHILS # (AUTO) 4.97 10*3/UL; NEUTROPHILS % (AUTO) 84.2 % (50-80)
[2016-12-08 10:57] LABS: PLATELET MORPHOLOGY COMMENT NORMAL MORPHOLOGY (NORM); RBC MORPHOLOGY COMMENT NORMAL MORPHOLOGY (NORM); WBC MORPHOLOGY COMMENT NORMAL MORPHOLOGY (NORM)
[2016-12-08 11:06] LABS: BLOOD UREA NITROGEN 12 mg/dL (7-22); BUN/CREATININE RATIO 17.14 (6-20); CALCIUM 8.4 mg/dL (8.7-10.7); EST GLOMERULAR FILTRATION > 60 (>60 ml/min/1.73m(2))
--- NOTE | 2016-12-08 15:05 | DI ---
XR ABDOMEN KUB UPRIGHT,12/08/2016 10:41 AM: Clinical History: Obstruction. Previous Exam: October 30, 2016 Findings: 4 views of the abdomen are obtained, and demonstrate a common duct stent. There is an IVC filter noted. A nonobstructive bowel gas pattern is seen. There are densities noted overlying the liver which were also seen on the prior exam, and appear to r epresent layering stones. Impression: 1. New biliary stent. 2. Nonobstructive, nonspecific bowel gas pattern which is much improved since prior exam. 3. Multiple densities within the right upper quadrant most consistent with gallstones.
== END ==
LOC: RAD 10:33
PROVIDERS: ATTEND Internal Medicine Gastroenterology
DX: C18.9 Malignant neoplasm of colon, unspecified (principal); K80.20 Calculus of gallbladder without cholecystitis without obstruction
CPT/HCPCS: 36415; 74020; 80053; 85025

== ENCOUNTER 2016-12-26 11:18 | Emergency (ER) | payer OTHER ==
[2016-12-26] MEDS ORDERED: Sodium Chloride 0.9% 1,000 ML PRIMARY IV ONE (11:32)
[2016-12-26 11:59] LABS: HEMATOCRIT 29.5 % (42.0-52.0); HEMOGLOBIN 9.1 g/dL (14.0-18.0)
--- NOTE | 2016-12-26 12:49 | PDOC ---
History and Physical - History of Present Illness Date and Time of Service: 11/25/2016 1245 Chief Complaint: Patient started bleeding from his colostomy site History of Present Illness: Yesterday we pulled his bridge underneath his diverting colostomy. He did well after the bleeding stopped yesterday this morning after coming back from [facility] he started bleeding from his colostomy site. Past Medical History Medical History: 1. Hypertension. 2. diabetes. 3. Rectal carcinoma with liver metastasis. 4. Lower extremity DVT status post IVC filter placement. On Xarelto, last dose taken last night. 5. Loss of weight related to cancer. 6. 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 7. History of DVT in left lower extremity, with filter placement Surgical History: 1. Colonoscopy with this colon mass,. 2. Appendectomy. 3. Tonsillectomy and adenoidectomy Pertinent Family History: No family history of colon cancer or heart disease. Past Social History: for 49 years, has 2 children, served in [place] and actually has to [place] from the service days. Does not smoke or drink. Substance Use Type: None Medication / Allergies Home Medications: Home Medications Medication Instructions Recorded Confirmed Type Metoprolol Succinate [Toprol XL] 0.5 tab PO DAILY 08/31/16 09/23/16 History Rivaroxaban [Xarelto] 20 mg PO DAILY 10/29/16 10/29/16 History Potassium Chloride 2 tab PO BID #0 12/25/16 Clinic Allergies/Adverse Reactions: Allergies Allergy/AdvReac Type Severity Reaction Status Date / Time No Known Allergies Allergy Verified 12/26/16 11:22 Exam - Vitals Vital Signs: Vital Signs Height 6 ft 2 in Weight 74.843 kg - General General Appearance: POSITIVE: No Acute Distress, Cooperative - GI/Abdominal GI/Abdominal Exam: POSITIVE: Normal Bowel Sounds, Non Tender, Non Distended, Soft Additional GI/Abdominal Exam Details: Patient has blood mixed with stool in his colostomy bag. After removing the colostomy bag he has small amount of old blood from the inferior aspect of the colostomy site. I held pressure for 15 minutes that get adequate hemostasis. We then watched Cipro additional 35 minutes no further bleeding. Results - Labs CBC and BMP: 12/26/16 11:55 Labs - Last 24 Hours: Laboratory Results 12/26/16 Range/Units 11:55 Hgb 9.1 L (14.0-18.0) g/dL Hct 29.5 L (42.0-52.0) % Assessment and Plan - Patient Problems (1) Active bleeding Current Visit: Yes Status: Acute - Assessment / Plan Additional Assessment/Plan Details: Patient was bleeding from his colostomy site. This is secondary to have and the bridge removed yesterday and being on a blood thinner. He has held his Xarelto today. Tomorrow he can resume his blood thinner medication. I think his risk of his DVT and having a PE far outweighs the risk of the bleeding currently (he is actually being treated for DVT).
[2016-12-26 15:27] VITALS: RESP 16; TEMP 97.6
== END 2016-12-26 13:03 | disposition home or self-care (01) ==
LOC: ER 11:18
DX: K94.01 Colostomy hemorrhage (principal); I10 Essential (primary) hypertension; C20 Malignant neoplasm of rectum; C78.7 Secondary malignant neoplasm of liver and intrahepatic bile duct; Z86.718 Personal history of other venous thrombosis and embolism; Z79.01 Long term (current) use of anticoagulants
CPT/HCPCS: 85014; 85018; 99282

== ENCOUNTER 2016-12-27 17:45 | Emergency (ER) | payer OTHER ==
[2016-12-27] MEDS ORDERED: KETOROLAC 15 MG/1 ML VIAL IVP ONE (18:24)
[2016-12-27] MEDS ORDERED: ONDANSETRON 4 MG/2 ML VIAL IVP ONE (18:24)
--- NOTE | 2016-12-27 18:41 | PDOC ---
Gen Adult / Medical Screen HPI - General Chief Complaint: General Medical Stated Complaint: fever/chills, on chemo Date Seen by Provider: 12/27/16 Time Seen by Provider: 18:36 Source: POSITIVE: Patient, Spouse Exam Limitations: POSITIVE: No limitations Nurse's Notes Reviewed & Considered: Yes - Indicators Temperature Between 95 and 101 Degrees: Yes Respirations Between 12 and 20: Yes Blood Pressure Between 100-165 (sys) and 60-100 (roth): No (87/51) Pulse Range Between 60-105 (100 for age > 60 years): Yes Severe Pain (Greater than 5/10 Reported): No Chest or Abdominal Pain: No Inability to Walk: No Pt Reports Active High Risk Cond. (TB/Hepatitis/HIV/Chemo): No Abnormal Mental Status: No - History of Present Illness Initial Comments: Mr. Pimentel is a very pleasant 71-year-old jaundiced male who comes in today with fever and chills. Patient is undergoing chemotherapy for metastatic colon cancer and comes in with weakness, fatigue, fever and chills. Symptoms began this morning and have escalated. His last chemotherapy was Thursday, and he had a recent Neupogen injection. He denies any nausea vomiting or diarrhea, no chest pain or shortness of breath, no rashes. Timing: REPORTS: Abrupt Duration: <24 hours Similar Symptoms Previously: No Recent Care Received: REPORTS: Treated by MD Any Prior Injuries Related to Current Complaint?: No - Patient Home Medications Home Medications: Home Medications Metoprolol Succinate [Toprol XL] 0.5 tab PO DAILY 08/31/16 Rivaroxaban [Xarelto] 20 mg PO DAILY 10/29/16 Potassium Chloride 2 tab PO BID #0 12/25/16 - Patient Allergies Allergies/Adverse Reactions: Allergies Allergy/AdvReac Type Severity Reaction Status Date / Time No Known Allergies Allergy Verified 12/27/16 18:06 Past Medical History - heen HEENT History: Other (please comment) Additional HEENT History: WEARS GLASSES Cardiovascular History: Hypertension, Arrhythmia, DVTs, Hyperlipidemia, Other ( please comment) Additional Cardiovasular History: AFIB. RECENT DX OF DVT/ IVF PLACED AT [facility] Respiratory History: Denies History Gastrointestinal History: Other (please comment) Additional Gastrointestinal History: CHRONIC DIARRHEA FOR CLOSE TO ONE YEAR. SIGMOID COLON ADENOCARCINOMA/ LOIS TO LIVER. NOV 03 2016. COLECTOMY WITH OSTOMY PLACEMENT Genitourinary History: Denies History Endocrine History: Type 1 Diabetes Musculoskeletal History: Other (please comment) Prosthesis or Implant: Yes (SHRAPNEL) Additional Musculoskeletal History: SHRAPNEL FROM [place] Neurological History: Denies History Blood Disorders: Other (please comment) Additional Blood Disorders History: HISTORY OF A L DVT FROM GROIN TO CALF. GETS NEUPOGEN Psychiatric History: Denies History History of Sexually Transmitted Diseases: No Cancer History: Colon Cancer Treatment / Date(s) of Treatment: 10/21/2016 to present In Past Year Been Physically Harmed or Verbally Threatened: No History of MDRO: No History of Other Communicable Diseases: No Tobacco Use: Never Smoker Alcohol Use: None Substance Use Type: None Previous Surgical History: Yes Type / Date of Surgery: APPENDECTOMY, TONSILLECTOMY, ADENOIDECTOMY, RIGHT DETACHED RETINA REPAIR. SIGMOIDOSCOPY, LIVER BIOPSY, FILTER PLACED Anesthesia Reactions: No Malignant Hyperthermia: No Significant Family History: Heart disease ROS - Limitations ROS Limitations: No Limitations Constitution: REPORTS: Chills, Fever Cardiovascular: REPORTS: Denies Cardiac Symptoms Respiratory: REPORTS: Denies Resp Symptoms Neurological: REPORTS: Denies Neuro Symptoms Gastrointestinal: REPORTS: Denies GI Symptoms Endocrine: REPORTS: Fatigue Musculoskeletal: REPORTS: Denies MS Symptoms Genitourinary: REPORTS: Denies Symptoms Eyes: REPORTS: Denies Symptoms ENT: REPORTS: Denies Symptoms Skin: REPORTS: Other (Jaundice that is resolving status post stent placement) Lympathic: REPORTS: Denies Lympathic Symptoms Immunologic: POSITIVE: Denies Symptoms Psychiatric: POSITIVE: Denies Psych Symptoms Gen Adult/Medical Screen Exam - General Appearance General Appearance: POSITIVE: Alert, Cooperative, No Acute Distress, No Evidence of Trauma - HEENT HEENT: POSITIVE: Head Inspection Nml, Ears Inspection Nml, Nose Inspection Nml, PERRL, EOMI, Scleral Icterus - Pupils Pupil Size: 5 mm: Bilateral - Neck Neck: POSITIVE: Normal Inspection, Thyroid Normal - Respiratory Respiratory: POSITIVE: No Respiratory Distress, Breath Sounds Normal, Chest Non- Tender - Cardiovascular Cardiovascular: POSITIVE: Regular Rate & Rhythm, No Murmur, No Gallop, PMI Normal - Abdomen Abdomen: Soft: (All Quadrants), Normal Bowel Sounds: (All Quadrants), Denies Tenderness: (All Quadrants) - Back Back: POSITIVE: Normal Inspection - Neurological / Psychological Mental Status: POSITIVE: Mood Normal, Affect Normal Orientation: POSITIVE: Oriented x 3 - Skin Skin: POSITIVE: Warm, Dry, No Rash, Other (jaundice skin) - Extremities Extremity: Non-Tender: (All Extremities), Normal ROM: (All Extremities), Normal Inspection: (All Extremities) Gen Adlt/Medical Scrn Progress - Results Reviewed by me Xrays/CTs/US Reviewed by me: Yes Discussed with Radiologist: Yes Lab Results Reviewed: Yes Lab Results:: Laboratory Results 12/27/16 12/27/16 12/27/16 Range/Units 18:46 18:50 21:11 WBC 5.56 (4.8-10.8) 10^3/uL RBC 2.58 L (4.70-6.10) 10^6/uL Hgb 8.4 L (14.0-18.0) g/dL Hct 27.0 L (42.0-52.0) % MCV 104.7 H (80-90) FL MCH 32.6 H (27-31) PG MCHC 31.1 L (33-37) g/dL RDW Std Deviation 63.0 H (39-50) fL RDW Coeff of Antonio 17.0 H (11.5-14.5) % Plt Count 185 (140-350) 10*3/uL MPV 11.3 (7.4-12.2) FL Neutrophils % (Manual) 60 (50-80) % Band Neutrophils % 25 H (0-10) % Lymphocytes % (Manual) 3 L (10-50) % Monocytes % (Manual) 2 (0-12) % Eosinophils % (Manual) 0 (0-8) % Basophils % (Manual) 0 (0-1) % Metamyelocytes % 10 % Myelocytes % Not Reportable Promyelocytes % Not Reportable Blast Cells Not Reportable WBC Morphology Comment See comments (NORM) Plt Morphology Comment Normal morphology (NORM) RBC Morph Comment Normal morphology (NORM) VBG pH 7.36 (7.32-7.42) VBG pCO2 28 L (45-55) mmHg VBG HCO3 16 L (22-26) mmol/L VBG Base Excess -10 L (-2-2) MMOL/L Sodium 138 (135-145) meq/L Potassium 3.5 L (3.8-5.2) meq/L Chloride 109 (98-112) meq/L Carbon Dioxide 19 L (23-33) meq/L Anion Gap 10 (5-20) BUN 16 (7-22) mg/dL Creatinine 1.0 (0.70-1.50) mg/dL Estimated GFR > 60 (>60 ml/min/1.73m(2)) BUN/Creatinine Ratio 16.00 (6-20) Glucose 182 H (78-110) mg/dL Calculated Osmolality 291.0 (267-292) mOsm/kg Lactic Acid 3.1 H (0.70-2.10) MMOL/L Calcium 8.4 L (8.7-10.7) mg/dL Magnesium 1.2 L (1.6-2.4) mg/dL Total Bilirubin 11.0 H (0.3-1.2) mg/dL AST 84 H (21-57) IU/L ALT 99 H (21-72) IU/L Alkaline Phosphatase 788 H (38-126) IU/L C-Reactive Protein 14.8 H (0.0-0.9) mg/dL Total Protein 5.8 L (6.1-8.0) g/dL Albumin 2.7 L (3.5-4.8) g/dL Globulin 3.1 (2.50-4.10) g/dL Albumin/Globulin Ratio 0.80 L (1.3-2.0) mg/g Urine RBC 0-1 (NONE) /hpf Urine WBC 3-5 (NONE) Ur Squamous Epith Cells Moderate (NONE) Ur Renal Epithelial Cell None (NONE) Urine Crystals Many Urine Bacteria Few (NONE) Urine Casts None Urine Mucus Many (NONE) Urine Trichomonas None (NONE) Urine Yeast None (NONE) - Patient's Progress Pain Medication Addressed: POSITIVE: Not Applicable Re-Examine Time: 23:11 Status: POSITIVE: Improved - Consult Consult (If Yes, Name of Consulting MD & Time Called): Yes (Dr. Alejo 1934) Consulting MD will see pt:: POSITIVE: Recommended Transfer Counseled: POSITIVE: Patient, Family, RE: Lab Results, RE: Radiology Results, RE : DX Patient Care Time - Estimated PCT Patient Care Time (In Minutes): 180 Vital Signs - Recent Vital Signs Vital Signs: Vital Signs (Last 8 hours) Temp Pulse Resp BP BP Pulse Ox 12/27/16 22:42 75 97/56 12/27/16 18:08 98.5 F 102 H 18 87/51 95 - VS Reviewed Vital Signs Reviewed: Yes Discharge Clinical Impression: Ascending cholangitis Discharge Disposition: Transferred to Tertiary Care Facility Condition: Poor Date Decision to Transfer to Another Facility: 12/27/16 Time Decision to Transfer to Another Facility: 22:20
[2016-12-27] MEDS: Sodium Chloride 0.9% 1,000 ML PRIMARY IV ONE ×3 (18:49→23:56)
[2016-12-27 18:51] LABS: HEMOGLOBIN 8.4 g/dL (14.0-18.0); MEAN CORPUSCULAR HEMOGLOBIN 32.6 PG (27-31); MEAN CORPUSCULAR HGB CONC 31.1 g/dL (33-37); MEAN CORPUSCULAR VOLUME 104.7 FL (80-90); MEAN PLATELET VOLUME 11.3 FL (7.4-12.2); RED BLOOD COUNT 2.58 10^6/uL (4.70-6.10)
[2016-12-27 18:57] LABS: VENOUS PH 7.36 (7.32-7.42)
[2016-12-27 19:03] LABS: BLOOD UREA NITROGEN 16 mg/dL (7-22); CALCIUM 8.4 mg/dL (8.7-10.7); EST GLOMERULAR FILTRATION > 60 (>60 ml/min/1.73m(2)); MAGNESIUM 1.2 mg/dL (1.6-2.4); SERUM ALBUMIN 2.7 g/dL (3.5-4.8)
[2016-12-27 19:10] LABS: PLATELET MORPHOLOGY COMMENT NORMAL MORPHOLOGY (NORM); RBC MORPHOLOGY COMMENT NORMAL MORPHOLOGY (NORM); WBC MORPHOLOGY COMMENT SEE COMMENTS (NORM)
[2016-12-27 19:11] LABS: BAND NEUTROPHILS % 25 % (0-10); BASOPHILS % (MANUAL) 0 % (0-1); EOSINOPHILS % (MANUAL) 0 % (0-8); LYMPHOCYTES % (MANUAL) 3 % (10-50); METAMYELOCYTES % 10 %; MONOCYTES % (MANUAL) 2 % (0-12); NEUTROPHILS % (MANUAL) 60 % (50-80)
[2016-12-27 19:28] LABS: C-REACTIVE PROTEIN 14.8 mg/dL (0.0-0.9)
[2016-12-27] MEDS ORDERED: Magnesium Sulfate 2gm (Premix) 2 GM in Premix 1 BAG IV ONE (19:34)
--- NOTE | 2016-12-27 20:30 | DI ---
HISTORY: Fever. FINDINGS: The heart is within normal limits with left subclavian venous catheter in position. There is slight accentuation of the pulmonary vasculature in both lung bases. The lung alvarez are otherwis e essentially clear. IMPRESSION: 1. Slight accentuation of the pulmonary vasculature bilateral lung bases. NOTIFICATION: The above findings were phoned to Elizabeth Nagel in the ER Department on 12/28/2016 at 12: 08am EST.
[2016-12-27 21:34] LABS: RBC,URINE 0-1 /hpf
[2016-12-27 21:35] LABS: BACTERIA,URINE FEW; SQUAMOUS EPITHELIAL CELL,UR MODERATE; URINE CRYSTALS MANY
--- NOTE | 2016-12-27 22:01 | DI ---
HISTORY: Jaundice, nausea and history of colorectal cancer. PREVIOUS EXAM: None available. TECHNIQUE: Multiple helically acquired CT images are obtained through the abdomen and pelvis followi ng the intravenous administration of 80 mL of Isovue 300. FINDINGS: CT images demonstrate multiple hepatic metastases. There is what appears to be a biliary stent noted within the common bile duct. There are multiple lay ering stones within the gallbladder. Spleen, adrenals and kidneys are unremarkable. There is an IVC filter noted. There is a 3 cm simple c yst involving the inferior pole right kidney. There is an ostomy noted within the left lower quadrant. There is some fluid in what appears to be a Hidalgo's pouch. The urinary bladder is unremarkable. Diffuse degenerative changes of the spine are seen to include a low-density circular area within the T10 vertebral body measuring 1.5 cm in diameter. Facet arthropathy is noted. There is a destructive lesion within the 11th thoracic vertebral body inv olving the posterior elements with a large soft tissue component measuring approximately 5.3 x 2.8 x 4.5 cm. This progressively involves the left pedicle and encroaches on the central canal. IMPRESSION: 1. Multiple hepatic metastases consistent with metastatic colon cancer. 2. Metastatic involvement of the 11th thoracic vertebral body with disruption of the left pedicle and a large adjacent soft tissue mass measuring 5.3 x 2.8 x 4.5 cm. This is also worrisome for a metasta tic focus. This also causes some impingement of the central canal. Correlate with radicular symptoms. 3. Cholelithiasis. 4. Biliary stent. The distal end is in good position within the common bile duct. The proximal appear s to arise from one of the branches of the hepatic ducts. It is difficult to assess the efficacy of t his stent. There is some prominence of the intrahepatic biliary ducts which would suggest that this p erhaps is not functioning.
[2016-12-27] MEDS ORDERED: Piperacillin/Tazobactam Inj 3.375 GM in Sodium Chloride 0.9% 100 ML IV ONE (23:01)
[2016-12-27] MEDS ORDERED: Sodium Chloride 0.9% 1,000 ML IV SCH (23:15)
[2016-12-28 01:44] VITALS: RESP 20; TEMP 97
[2016-12-28] MEDS ORDERED: Sodium Chloride 0.9% 1,000 ML ONE (05:47)
== END 2016-12-28 00:25 | disposition short-term general hospital (02) ==
LOC: ER 17:45
DX: K83.0 Cholangitis (principal); I48.91 Unspecified atrial fibrillation; E78.5 Hyperlipidemia, unspecified; I10 Essential (primary) hypertension; E10.9 Type 1 diabetes mellitus without complications; R50.9 Fever, unspecified; Z79.4 Long term (current) use of insulin; Z86.718 Personal history of other venous thrombosis and embolism; Z79.01 Long term (current) use of anticoagulants
CPT/HCPCS: 36415 ×2; 71020; 74177; 80053; 81015; 82803; 83605; 83735; 85007; 86140; 87040; 87077; 87088; 87186 ×2; 96361; 96365; 96375; 99284 ×2; J2543; J1885; J2405; J3475; J7030; J7050

== ENCOUNTER 2017-02-19 09:00 | Outpatient (CLI) | payer OTHER ==
[2017-02-19] MEDS ORDERED: HEPARIN 500 UNIT/5 ML SYRINGE FOR CENTRAL LINE IVP ONE (09:12)
[2017-02-19] MEDS ORDERED: NS 500 ML for Blood Transfusion PRIMARY IV SCH (11:43)
[2017-02-19] MEDS ORDERED: NORMAL SALINE 10 ML SYRINGE FLUSH IVP PRN (11:43)
[2017-02-19] MEDS ORDERED: diphenhydrAMINE 25 MG CAPSULE PO PRN (11:43)
[2017-02-19] MEDS ORDERED: ACETAMINOPHEN 325 MG TABLET PO PRN (11:44)
[2017-02-19] MEDS ORDERED: FUROSEMIDE 10 MG/1 ML - 2 ML VIAL IV PRN (11:44)
[2017-02-19 16:22] VITALS: RESP 18
[2017-02-19 17:47] VITALS: TEMP 97.7
== END 2017-02-19 19:40 | disposition home or self-care (01) ==
LOC: IV THERAPY 09:00 → LAB 09:00 → IV THERAPY 19:40
PROVIDERS: ATTEND Internal Medicine Medical Oncology
DX: D64.9 Anemia, unspecified (principal); C18.7 Malignant neoplasm of sigmoid colon
CPT/HCPCS: 36430; 86850; 86900; 86901; 86922; 96374; 99211; J1642; J1940; P9016; Q0163; J7040

== ENCOUNTER 2017-02-21 18:23 | Inpatient (IN) | payer OTHER ==
[2017-02-21] MEDS ORDERED: Sodium Chloride 0.9% 1,000 ML PRIMARY IV ONE (18:36)
[2017-02-21] MEDS ORDERED: ONDANSETRON 4 MG/2 ML VIAL IVP ONE (18:36)
--- NOTE | 2017-02-21 18:42 | PDOC ---
Nausea/Vomiting/Diarrhea HPI - General Chief Complaint: Nausea / Vomiting / Diarrhea Stated Complaint: DIARRHEA X 4 DAYS Date Seen by Provider: 02/21/17 Time Seen by Provider: 18:37 Source: POSITIVE: Patient, Spouse Exam Limitations: POSITIVE: No limitations Nurse's Notes Reviewed & Considered: Yes - History of Present Illness Initial Comments: This is a 71-year-old very pleasant male who comes in today with diarrhea. This gentleman has had diarrhea since Thursday subsequent to his last chemotherapy treatment. He has colorectal cancer and a colostomy present. He was seen here in the emergency department and started on loperamide. His been taking loperamide every hour with no relief. He called his oncologist who advised him to come to the emergency department. Patient denies any fevers, no chills or sweats, no nausea or vomiting, he does have decreased appetite. His strength and endurance have improved after he received 2 units of blood on Thursday. He denies any abdominal pain, no hematuria or dysuria, no myalgias or arthralgias. Body Location Affected: REPORTS: Abdomen Timing: REPORTS: Abrupt Duration: <1 week Severity: Severe Quality: REPORTS: Cramping Context: REPORTS: None Modifying Factors: improves with: Nothing Associated Symptoms: REPORTS: Copious Diarrhea, Other (Significant colonic gas.) Similar Symptoms Previously: No Recent Care Received: REPORTS: Recently Seen, Treated by MD Any Prior Injuries Related to Current Complaint?: No - Patient Home Medications Home Medications: Home Medications Rivaroxaban [Xarelto] 20 mg PO DAILY 10/29/16 Diphenoxylate HCl/Atropine [Lomotil 2.5-0.025 mg Tablet] 1 tab PO Q2H PRN PRN Multivitamin [Multi-Day Vitamins] 1 tab PO DAILY 02/21/17 Potassium Chloride [Klor-Con] 20 meq PO BID #14 tab 02/24/17 - Patient Allergies Allergies/Adverse Reactions: Allergies Allergy/AdvReac Type Severity Reaction Status Date / Time No Known Allergies Allergy Verified 02/24/17 02:32 Past Medical History - heen HEENT History: Other (please comment) Additional HEENT History: WEARS GLASSES Cardiovascular History: Hypertension, Arrhythmia, DVTs, Hyperlipidemia, Other ( please comment) Additional Cardiovasular History: AFIB. RECENT DX OF DVT/ IVF PLACED AT [facility] Respiratory History: Denies History Gastrointestinal History: Other (please comment) Additional Gastrointestinal History: CHRONIC DIARRHEA FOR CLOSE TO ONE YEAR. SIGMOID COLON ADENOCARCINOMA/ LOIS TO LIVER. NOV 03 2016. COLECTOMY WITH OSTOMY PLACEMENT Genitourinary History: Denies History Endocrine History: Type 1 Diabetes Musculoskeletal History: Other (please comment) Prosthesis or Implant: Yes (SHRAPNEL) Additional Musculoskeletal History: SHRAPNEL FROM [place] Neurological History: Denies History Blood Disorders: Other (please comment) Additional Blood Disorders History: HISTORY OF A L DVT FROM GROIN TO [facility]F. GETS NEUPOGEN Psychiatric History: Denies History History of Sexually Transmitted Diseases: No Cancer History: Colon Cancer Treatment / Date(s) of Treatment: 10/21/2016 to present History of MDRO: Yes History of Other Communicable Diseases: No Alcohol Use: None Substance Use Type: None Previous Surgical History: Yes Type / Date of Surgery: APPENDECTOMY, TONSILLECTOMY, ADENOIDECTOMY, RIGHT DETACHED RETINA REPAIR. SIGMOIDOSCOPY, LIVER BIOPSY, FILTER PLACED Anesthesia Reactions: No Malignant Hyperthermia: No Significant Family History: Heart disease ROS - Limitations ROS Limitations: No Limitations Constitution: REPORTS: Denies Symptoms Cardiovascular: REPORTS: Denies Cardiac Symptoms Respiratory: REPORTS: Denies Resp Symptoms Neurological: REPORTS: Denies Neuro Symptoms Gastrointestinal: REPORTS: Diarrhea Endocrine: REPORTS: Denies Symptoms Musculoskeletal: REPORTS: Denies MS Symptoms Genitourinary: REPORTS: Denies Symptoms Eyes: REPORTS: Denies Symptoms ENT: REPORTS: Denies Symptoms Skin: REPORTS: Denies Skin Symptoms Lympathic: REPORTS: Denies Lympathic Symptoms Immunologic: POSITIVE: Denies Symptoms Psychiatric: POSITIVE: Denies Psych Symptoms Nausea/Vomiting/Diarrhea Exam - General Appearance General Appearance: POSITIVE: Alert, Cooperative, No Acute Distress, No Evidence of Trauma - HEENT HEENT: POSITIVE: Head Inspection Nml, Eyes Inspection Nml, Ears Inspection Nml, Nose Inspection Nml, Oral/Dental Inspect. Nml, Pharynx Inspect. Nml, PERRL, EOMI - Neck Neck: POSITIVE: Supple, Normal Inspection, Non Tender - Respiratory Respiratory: POSITIVE: No Respiratory Distress, Breath Sounds Normal, Chest Non- Tender - Cardiovascular Cardiovascular: POSITIVE: Regular Rate and Rhythm, Heart Sounds Normal, Equal Pulses, Strong Pulses Peripheral Pulses: Radial (R): 4+ - Chest Chest: POSITIVE: Non Tender - Abdomen Abdomen: Soft: (All Quadrants), Denies Tenderness: (All Quadrants), No Splenomegaly: (All Quadrants), No Hepatomegaly: (All Quadrants), No Guarding: ( All Quadrants), No Rebound: (All Quadrants), No Palpable Pulse: (All Quadrants) , No Palpabale Mass: (All Quadrants), No Distention: (All Quadrants), No Rigidity: (All Quadrants), Hyperactive Bowel Sounds: (All Quadrants) - Back Back: POSITIVE: Normal Inspection - Skin Skin: POSITIVE: Intact, Normal For Race, Warm, Dry, No Rash - Extremities Extremity: Non-Tender: (All Extremities), Normal ROM: (All Extremities), Normal Inspection: (All Extremities), Pelvis Stable: (All Extremities) - Neurological / Psychological Neurological: POSITIVE: Oriented X3, 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 As Tested, Motor Normal, Sensation Normal, 5, 6 N/V/D Progress - Results Reviewed by me Xrays/CTs/US Reviewed by me: Yes Lab Results Reviewed: Yes Lab Results:: Laboratory Results 02/21/17 Range/Units 18:30 WBC 11.46 H (4.8-10.8) 10^3/uL RBC 2.54 L (4.70-6.10) 10^6/uL Hgb 9.7 L (14.0-18.0) g/dL Hct 26.9 L (42.0-52.0) % MCV 105.9 H (80-90) FL MCH 38.2 H (27-31) PG MCHC 36.1 (33-37) g/dL RDW Std Deviation 90.3 H (39-50) fL RDW Coeff of Antonio 25.8 H (11.5-14.5) % Plt Count 163 (140-350) 10*3/uL MPV 11.3 (7.4-12.2) FL Neutrophils % (Manual) 91 H (50-80) % Band Neutrophils % 5 (0-10) % Lymphocytes % (Manual) 3 L (10-50) % Monocytes % (Manual) 0 (0-12) % Eosinophils % (Manual) 0 (0-8) % Basophils % (Manual) 1 (0-1) % Metamyelocytes % Not Reportable Myelocytes % Not Reportable Promyelocytes % Not Reportable Blast Cells Not Reportable WBC Morphology Comment Normal morphology (NORM) Plt Morphology Comment Normal morphology (NORM) RBC Morph Comment See comments (NORM) Sodium 138 (135-145) meq/L Potassium 3.3 L (3.8-5.2) meq/L Chloride 109 (98-112) meq/L Carbon Dioxide 22 L (23-33) meq/L Anion Gap 7 (5-20) BUN 18 (7-22) mg/dL Creatinine 0.7 (0.70-1.50) mg/dL Estimated GFR > 60 (>60 ml/min/1.73m(2)) BUN/Creatinine Ratio 25.71 H (6-20) Glucose 144 H (78-110) mg/dL Calculated Osmolality 290.0 (267-292) mOsm/kg Lactic Acid 2.3 H (0.70-2.10) MMOL/L Calcium 8.7 (8.7-10.7) mg/dL Magnesium 1.5 L (1.6-2.4) mg/dL Total Bilirubin 4.7 H (0.3-1.2) mg/dL AST 58 H (21-57) IU/L ALT 85 H (21-72) IU/L Alkaline Phosphatase 1070 H (38-126) IU/L Total Protein 5.2 L (6.1-8.0) g/dL Albumin 2.5 L (3.5-4.8) g/dL Globulin 2.7 (2.50-4.10) g/dL Albumin/Globulin Ratio 0.90 L (1.3-2.0) mg/g - Patient's Progress Pain Medication Addressed: POSITIVE: Not Applicable Status: POSITIVE: Improved MDM / ED Course: Patient was evaluated, an IV started, blood drawn and sent to the lab for studies, radiographic examinations was obtained. Assessment: Diarrhea in an immunocompromised cancer patient. Plan: Admission - Consult Consult (If Yes, Name of Consulting MD & Time Called): Yes Consulting MD will see pt:: [place] [facility] [place] Counseled: POSITIVE: Patient, Family, RE: Lab Results, RE: Radiology Results, RE : DX Patient Care Time - Estimated PCT Patient Care Time (In Minutes): 45 Vital Signs - VS Reviewed Vital Signs Reviewed: Yes Discharge Clinical Impression: Acute diarrhea Discharge Disposition: Admit to Inpatient Condition: Fair Date Decision to Admit to Inpatient: 02/21/17 Time Decision to Admit to Inpatient: 21:00
[2017-02-21 18:49] LABS: HEMATOCRIT 26.9 % (42.0-52.0); HEMOGLOBIN 9.7 g/dL (14.0-18.0); MEAN CORPUSCULAR HEMOGLOBIN 38.2 PG (27-31); MEAN CORPUSCULAR HGB CONC 36.1 g/dL (33-37); MEAN CORPUSCULAR VOLUME 105.9 FL (80-90); MEAN PLATELET VOLUME 11.3 FL (7.4-12.2); RED BLOOD COUNT 2.54 10^6/uL (4.70-6.10)
[2017-02-21 19:11] LABS: PLATELET MORPHOLOGY COMMENT NORMAL MORPHOLOGY (NORM); WBC MORPHOLOGY COMMENT NORMAL MORPHOLOGY (NORM)
[2017-02-21 19:12] LABS: BAND NEUTROPHILS % 5 % (0-10); BASOPHILS % (MANUAL) 1 % (0-1); EOSINOPHILS % (MANUAL) 0 % (0-8); LYMPHOCYTES % (MANUAL) 3 % (10-50); MONOCYTES % (MANUAL) 0 % (0-12); NEUTROPHILS % (MANUAL) 91 % (50-80); RBC MORPHOLOGY COMMENT SEE COMMENTS (NORM)
[2017-02-21 19:22] LABS: BLOOD UREA NITROGEN 18 mg/dL (7-22); BUN/CREATININE RATIO 25.71 (6-20); CALCIUM 8.7 mg/dL (8.7-10.7); EST GLOMERULAR FILTRATION > 60 (>60 ml/min/1.73m(2)); MAGNESIUM 1.5 mg/dL (1.6-2.4); SERUM ALBUMIN 2.5 g/dL (3.5-4.8)
[2017-02-21] MEDS ORDERED: Magnesium Sulfate 2gm (Premix) 2 GM in Premix 1 BAG IV ONE (19:44)
[2017-02-21] MEDS ORDERED: Cefepime Inj 2 GM in Sodium Chloride 0.9% 100 ML IV SCH (21:15)
--- NOTE | 2017-02-21 21:15 | PDOC ---
History and Physical - History of Present Illness History of Present Illness: This very nice 71-year-old gentleman with past medical history with colon cancer status post colostomy. By Dr. brad Woods. Apparently he has metastatic disease to the liver and bones he underwent 9 rounds of chemotherapy the last one being last Thursday. He has developed diarrhea over the last 3 days with the severe dehydration and poor by mouth intake up to 7-8 times a day he has been emptying his bag the oncology office told him to take Imodium he was brought to the ER tonight because of the excessive diarrhea he was found to have electrolyte imbalance and is being given fluids and banana bags with replacement by myself. We will admit him for further workup Past Medical History Medical History: 1. Hypertension. 2. diabetes. 3. Rectal carcinoma with liver metastasis. 4. Lower extremity DVT status post IVC filter placement. On Xarelto, last dose taken last night. 5. Loss of weight related to cancer. 6. 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 7. History of DVT in left lower extremity, with filter placement Surgical History: 1. Colonoscopy with this colon mass,. 2. Appendectomy. 3. Tonsillectomy and adenoidectomy Pertinent Family History: No family history of colon cancer or heart disease. Past Social History: for 49 years, has 2 children, served in [place] and actually has to [place] from the service days. Does not smoke or drink. Tobacco Use: Never Smoker Substance Use Type: None Medication / Allergies Home Medications: Home Medications Medication Instructions Recorded Confirmed Type Metoprolol Succinate [Toprol XL] 0.5 tab PO DAILY 08/31/16 02/21/17 History Rivaroxaban [Xarelto] 20 mg PO DAILY 10/29/16 02/21/17 History Potassium Chloride 2 tab PO BID #0 12/25/16 02/21/17 Clinic Diphenoxylate HCl/Atropine 1 tab PO Q2H PRN PRN 02/21/17 02/21/17 History [Lomotil 2.5-0.025 mg Tablet] Multivitamin [Multi-Day Vitamins] 1 tab PO DAILY 02/21/17 02/21/17 History Allergies/Adverse Reactions: Allergies Allergy/AdvReac Type Severity Reaction Status Date / Time No Known Allergies Allergy Verified 02/21/17 20:21 Review of Systems - Review of Systems All Systems: Reviewed & No Additional Complaints Except as Stated - Constitutional Constitutional: REPORTS: General Health Poor, Fatigue, Weakness - Integumentary Integumentary: DENIES: Negative System Review, Rash, Superficial Wound, Laceration, Puncture Wound, Foreign Body, Itching, Dryness, Ulcers, Color Changes, Moles, Hair Loss, Hirsutism, Other, See HPI - Respiratory Respiratory: DENIES: Negative System Review, Cough, Sputum, Dyspnea At Rest, Dyspnea with Exertion, Pleuritic Pain, Hemoptysis, Wheezing, Other, See HPI - Cardiovascular Cardiovascular: DENIES: Negative System Review, Chest Pain, Edema, Syncope, Palpitations, Orthopnea, Paroxysmal Nocturnal Dyspnea, Other, See HPI - Gastrointestinal Gastrointestinal / Abdominal: REPORTS: Nausea, Diarrhea. DENIES: Abdominal Pain - Genitourinary Genitourinary: DENIES: Negative System Review, Pain, Burning, Hematuria, Incontinence, Urgency, Hesitant Stream, Decreased Stream, Nocutria, Discharge, Sexual Dyfunction, Other, See HPI - Neurological Neurologic: DENIES: Negative System Review, Headache, Numbness/Paresthesia, Tremors, Weakness, Seizures, Head Trauma, LOC, Dizziness, Confusion, Memory Loss , Difficulty Walking, Incoordination, Other, See HPI Exam - Vitals Vital Signs: Vital Signs Temperature 97.0 F Temperature Source Temporal Artery Scan Pulse Rate [Pulse Oximeter] 92 Respiratory Rate 18 Blood Pressure [Left Arm] 128/79 Pulse Ox 93 Oxygen Delivery Method Room Air Height 6 ft 2 in Weight 63.503 kg - General General Appearance: POSITIVE: No Acute Distress, Cooperative, Disheveled, Thin - Head Head Exam: POSITIVE: Normal Inspection, Normocephalic, Atraumatic - Eye Eye Exam: POSITIVE: Normal Appearance - ENT ENT Exam: POSITIVE: Normal Exam - Neck Neck Exam: POSITIVE: Normal Inspection - Respiratory Respiratory Exam: POSITIVE: Clear to Auscultation - Bilaterally, Breathing Non Labored, Normal To Percussion, Normal to Percussion and Palpation - Cardiovascular Cardiovascular Exam: POSITIVE: RRR, No Murmur - GI/Abdominal GI/Abdominal Exam: POSITIVE: Normal Bowel Sounds, Non Tender, Soft Additional GI/Abdominal Exam Details: Colostomy bag full again - Extremities Extremities Exam: POSITIVE: No Clubbing Present, No Edema Present, No Cyanosis Present - Neurological Neurological Exam: POSITIVE: Alert, Oriented x 3, No Facial Droop, Speech Intact / Clear Results - Labs CBC and BMP: 02/21/17 18:30 02/21/17 18:30 Labs - Last 24 Hours: Laboratory Results 02/21/17 Range/Units 18:30 WBC 11.46 H (4.8-10.8) 10^3/uL RBC 2.54 L (4.70-6.10) 10^6/uL Hgb 9.7 L (14.0-18.0) g/dL Hct 26.9 L (42.0-52.0) % MCV 105.9 H (80-90) FL MCH 38.2 H (27-31) PG MCHC 36.1 (33-37) g/dL RDW Std Deviation 90.3 H (39-50) fL RDW Coeff of Antonio 25.8 H (11.5-14.5) % Plt Count 163 (140-350) 10*3/uL MPV 11.3 (7.4-12.2) FL Neutrophils % (Manual) 91 H (50-80) % Band Neutrophils % 5 (0-10) % Lymphocytes % (Manual) 3 L (10-50) % Monocytes % (Manual) 0 (0-12) % Eosinophils % (Manual) 0 (0-8) % Basophils % (Manual) 1 (0-1) % Metamyelocytes % Not Reportable Myelocytes % Not Reportable Promyelocytes % Not Reportable Blast Cells Not Reportable WBC Morphology Comment Normal morphology (NORM) Plt Morphology Comment Normal morphology (NORM) RBC Morph Comment See comments (NORM) Sodium 138 (135-145) meq/L Potassium 3.3 L (3.8-5.2) meq/L Chloride 109 (98-112) meq/L Carbon Dioxide 22 L (23-33) meq/L Anion Gap 7 (5-20) BUN 18 (7-22) mg/dL Creatinine 0.7 (0.70-1.50) mg/dL Estimated GFR > 60 (>60 ml/min/1.73m(2)) BUN/Creatinine Ratio 25.71 H (6-20) Glucose 144 H (78-110) mg/dL Calculated Osmolality 290.0 (267-292) mOsm/kg Lactic Acid 2.3 H (0.70-2.10) MMOL/L Calcium 8.7 (8.7-10.7) mg/dL Magnesium 1.5 L (1.6-2.4) mg/dL Total Bilirubin 4.7 H (0.3-1.2) mg/dL AST 58 H (21-57) IU/L ALT 85 H (21-72) IU/L Alkaline Phosphatase 1070 H (38-126) IU/L Total Protein 5.2 L (6.1-8.0) g/dL Albumin 2.5 L (3.5-4.8) g/dL Globulin 2.7 (2.50-4.10) g/dL Albumin/Globulin Ratio 0.90 L (1.3-2.0) mg/g Assessment and Plan - Patient Problems (1) Diarrhea Current Visit: No Status: Acute Comment: We will send stool for O and parasites cultures and normal Giardia cryptosporidium C. difficile. Blood cultures were done in the ER I will start cefepime bank considering he is immunosuppressed with a slight white count and the left shift but he has had 9 rounds of chemotherapy I will hydrate him and replace his electrolytes check CT scan abdomen and pelvis for obstruction or colitis symptoms have a long discussion with patient and his and will be admitted and we'll observe him and treat his dehydration and diarrhea most likely this is either viral or chemotherapy-induced (2) Anemia, blood loss Current Visit: No Status: Acute (3) Colon cancer Current Visit: No Status: Acute (4) Hypomagnesemia Current Visit: Yes Status: Acute (5) Hypokalemia Current Visit: No Status: Acute
[2017-02-21] MEDS ORDERED: LIDOCAINE W/ SODIUM BICARB 0.5 ML SYR SUBD PRN (21:56)
[2017-02-21] MEDS ORDERED: Loperamide Tab 2 MG TABLET PO PRN (21:56)
[2017-02-21] MEDS ORDERED: Diphenoxylate/Atropine 2.5/0.025 mg Tab PO PRN (21:56)
[2017-02-21] MEDS ORDERED: Sodium Chloride 0.9% 1,000 ML, Magnesium Sulfate 2gm (Premix) 50 ML with Multivitamin I... IV SCH ×5 (21:56)
[2017-02-21] MEDS: Diphenoxylate/Atropine 2.5/0.025 mg Tab PO SCH (22:41)
--- NOTE | 2017-02-21 22:43 | DI ---
HISTORY: Metastatic colon cancer. COMPARISON: None available. TECHNIQUE: CT of the abdomen and pelvis was performed and submitted for interpretation. FINDINGS: Groundglass and nodular opacities at the lung bases is nonspecific in the setting of metas tatic disease. The heart is normal in size. The aorta is normal in caliber. An IVC filter is noted . The liver is nearly replaced by metastases. An extensive biliary stent network is noted. The gallbl adder is collapsed around multiple stones. There is a peripheral low attenuating region within the i nferior spleen, likely additional metastasis the pancreas is grossly unremarkable. A 4 cm right cassi l cyst is noted. The left kidney is unremarkable. The adrenal glands are unremarkable. There is tr javier ascites. There is no evidence of pneumoperitoneum. There is no lymphadenopathy by CT size crite doc. A left lower quadrant colostomy is noted and appears grossly unremarkable. There is mild apparent t hickening of the afferent loop of the ostomy with pericolonic fat stranding trace ascites, which coul d reflect colitis if the patient has left lower quadrant pain. However, generalized anasarca limits evaluation of these subtle inflammatory changes. Multifocal areas of rectal wall thickening are noted . Fluid within the rectum is consistent with diarrhea. Intermixed high density material within the rectum could reflect blood products. There is a left internal hernia containing normal-appearing sma ll bowel. The remainder of the small and large bowel are within normal limits. IMPRESSION: 1. Possible uncomplicated descending colitis just proximal to the colostomy. However, diffuse anasar ca limits evaluation of subtle inflammatory changes. These findings can be correlated with exam and left lower quadrant pain. 2. Multifocal rectal thickening. Rectal fluid with intermixed high density material is consistent wi th history of diarrhea and could reflect concomitant blood products. 3. Diffuse hepatic metastases with extensive biliary stent. 4. Low attenuating splenic lesion is likely a metastasis. 5. Right renal cyst. 6. Bibasilar groundglass and nodular pulmonary opacities are nonspecific in the setting of diffuse me tastatic disease. NOTIFICATION: The above findings were phoned to Melva Long in the ER Department on 02/22/2017 at 12:57am EST.
[2017-02-22] MEDS: Cefepime Inj 2 GM in Sodium Chloride 0.9% 100 ML IV SCH ×3 (05:06→20:27)
[2017-02-22 07:43] LABS: BLOOD UREA NITROGEN 15 mg/dL (7-22); CALCIUM 7.9 mg/dL (8.7-10.7); EST GLOMERULAR FILTRATION > 60 (>60 ml/min/1.73m(2)); SERUM ALBUMIN 2.1 g/dL (3.5-4.8)
[2017-02-22 07:55] LABS: HEMATOCRIT 24.7 % (42.0-52.0); HEMOGLOBIN 8.2 g/dL (14.0-18.0); MEAN CORPUSCULAR HEMOGLOBIN 35.7 PG (27-31); MEAN CORPUSCULAR HGB CONC 33.2 g/dL (33-37); MEAN CORPUSCULAR VOLUME 107.4 FL (80-90); MEAN PLATELET VOLUME 11.5 FL (7.4-12.2)
[2017-02-22] MEDS: METOPROLOL SUCCINATE 25 MG SR 24H TABLET PO SCH (08:04)
[2017-02-22] MEDS: Rivaroxaban Tab 10 MG TAB PO SCH (08:04)
[2017-02-22] MEDS: Multivitamin Tab 1 TAB PO SCH (08:04)
[2017-02-22] MEDS: Diphenoxylate/Atropine 2.5/0.025 mg Tab PO SCH ×4 (08:04→20:28)
[2017-02-22] MEDS ORDERED: Potassium Chloride 20 mEq 20 MEQ in Premix 1 BAG IV ONE (08:08)
--- NOTE | 2017-02-22 08:17 | PDOC(PROG) ---
Date and Time of Service: 02/22/2017 8:16 AM Interval History: Subjective Patient came into the hospital with history of diarrhea that's been going on for 3-4 days, he is been changing his a colostomy bag every Hour to every an hour a half, liquid output. No blood. There is no abdominal pain. No vomiting. He was transfused 2 units of blood on . His appetite is not good. No fever. He said the he stents in the biliary ducts inserted few weeks ago, he had total of 3 stents and they were replaced 2 weeks ago in [place]. This was done because he was jaundiced. Apparently also had a blood infection and he had antibiotics treatment in addition to the stents. Today he feels somewhat better compared to when he came in. No pain, the output seemed to be less from the colostomy. No vomiting. Objective : Data - Labs CBC and BMP: 02/22/17 04:00 02/22/17 04:00 Labs - Last 24 Hours: Laboratory Results 02/22/17 Range/Units 04:00 Sodium 140 (135-145) meq/L Potassium 3.1 L (3.8-5.2) meq/L Chloride 113 H (98-112) meq/L Carbon Dioxide 21 L (23-33) meq/L Anion Gap 6 (5-20) BUN 15 (7-22) mg/dL Creatinine 0.6 L (0.70-1.50) mg/dL Estimated GFR > 60 (>60 ml/min/1.73m(2)) BUN/Creatinine Ratio 25.00 H (6-20) Glucose 105 (78-110) mg/dL Calculated Osmolality 290.0 (267-292) mOsm/kg Calcium 7.9 L (8.7-10.7) mg/dL Total Bilirubin 4.0 H (0.3-1.2) mg/dL AST 61 H (21-57) IU/L ALT 73 H (21-72) IU/L Alkaline Phosphatase 840 H (38-126) IU/L Total Protein 4.6 L (6.1-8.0) g/dL Albumin 2.1 L (3.5-4.8) g/dL Globulin 2.5 (2.50-4.10) g/dL Albumin/Globulin Ratio 0.80 L (1.3-2.0) mg/g Objective : Exam - General General Appearance: No Acute Distress, Cooperative, Thin Additional General Exam Details: Cachectic. - Head Head Exam: Normal Inspection, Atraumatic - Eye Eye Exam: Normal Appearance - ENT ENT Exam: Normal Exam - Neck Neck Exam: Normal Inspection - Respiratory Respiratory Exam: Clear to Auscultation - Bilaterally - Cardiovascular Cardiovascular Exam: RRR - GI/Abdominal GI/Abdominal Exam: Normal Bowel Sounds, Non Tender, Non Distended, Soft Additional GI/Abdominal Exam Details: Colostomy in place. - Rectal Rectal Exam: Deferred - External Exam: Deferred - Extremities Extremities Exam: Normal Inspection - Back Back Exam: Normal Inspection - Neurological Neurological Exam: Alert, Oriented x 3, CN II-XII Intact, No Facial Droop, Moves All Extremities Equally - Integumentary Integumentary Exam: Normal Color Assessment and Plan - Patient Problems (1) Diarrhea Current Visit: No Status: Acute Comment: The CT that he had last night showed possible colitis it seemed to be mild though. Stool samples were sent this morning. Since he had recent antibiotic treatment I think I'll add Flagyl IV. Continue hydration and electrolyte replacement. This may be secondary either to infection or chemotherapy. We'll try to get records from the oncologist and see what kind of chemotherapy he is getting. (2) Colon cancer Current Visit: No Status: Acute Comment: We'll try to get records from his oncologist tomorrow and see what kind of chemotherapy he is getting. (3) History of DVT of lower extremity Current Visit: Yes Status: Acute Comment: Continue Xarelto. (4) Hypomagnesemia Current Visit: Yes Status: Acute Comment: He is on replacement will check it tomorrow. (5) Hypokalemia Current Visit: No Status: Acute Comment: Continue replacement
[2017-02-22 08:26] LABS: RBC MORPHOLOGY COMMENT SEE COMMENTS (NORM); WBC MORPHOLOGY COMMENT NORMAL MORPHOLOGY (NORM)
[2017-02-22 08:28] LABS: BAND NEUTROPHILS % 1 % (0-10); NEUTROPHILS % (MANUAL) 91 % (50-80); PLATELET MORPHOLOGY COMMENT SEE COMMENTS (NORM)
[2017-02-22 08:29] LABS: BASOPHILS % (MANUAL) 0 % (0-1); EOSINOPHILS % (MANUAL) 0 % (0-8); LYMPHOCYTES % (MANUAL) 7 % (10-50); METAMYELOCYTES % 0 %; MONOCYTES % (MANUAL) 1 % (0-12); MYELOCYTES % 0 %; PROMYELOCYTES % 0 %
[2017-02-22] MEDS ORDERED: Sodium Chloride 0.9% 250 ML IV ONE (09:51)
[2017-02-22] MEDS: NORMAL SALINE 10 ML SYRINGE FLUSH IVP PRN (09:55)
[2017-02-22] MEDS: metroNIDAZOLE 500mg (Premix) 500 MG in Premix 1 BAG IV SCH ×2 (09:56→17:00)
[2017-02-22] MEDS ORDERED: METRONIDAZOLE 500 MG IV ONE (16:14)
[2017-02-22] MEDS ORDERED: ONDANSETRON 4 MG/2 ML VIAL IVP PRN (17:33)
[2017-02-22] MEDS: Sodium Chloride 0.9% 1,000 ML with Multivitamin Inj 10 ML, Thiamine Inj 100 MG, Folic A... IV SCH ×5 (20:28)
[2017-02-23] MEDS: metroNIDAZOLE 500mg (Premix) 500 MG in Premix 1 BAG IV SCH ×3 (01:28→16:26)
[2017-02-23] MEDS: Cefepime Inj 2 GM in Sodium Chloride 0.9% 100 ML IV SCH ×3 (04:14→20:50)
[2017-02-23 04:44] LABS: HEMATOCRIT 24.2 % (42.0-52.0); HEMOGLOBIN 7.9 g/dL (14.0-18.0); MEAN CORPUSCULAR HGB CONC 32.6 g/dL (33-37); MEAN CORPUSCULAR VOLUME 107.1 FL (80-90); MEAN PLATELET VOLUME 10.9 FL (7.4-12.2); RED BLOOD COUNT 2.26 10^6/uL (4.70-6.10)
[2017-02-23 04:55] LABS: BLOOD UREA NITROGEN 12 mg/dL (7-22); CALCIUM 7.9 mg/dL (8.7-10.7); EST GLOMERULAR FILTRATION > 60 (>60 ml/min/1.73m(2)); SERUM ALBUMIN 1.9 g/dL (3.5-4.8)
[2017-02-23 05:06] LABS: PLATELET MORPHOLOGY COMMENT NORMAL MORPHOLOGY (NORM); RBC MORPHOLOGY COMMENT SEE COMMENTS (NORM); WBC MORPHOLOGY COMMENT NORMAL MORPHOLOGY (NORM)
[2017-02-23 05:07] LABS: BAND NEUTROPHILS % 0 % (0-10); BASOPHILS % (MANUAL) 1 % (0-1); EOSINOPHILS % (MANUAL) 2 % (0-8); LYMPHOCYTES % (MANUAL) 20 % (10-50); MONOCYTES % (MANUAL) 5 % (0-12); NEUTROPHILS % (MANUAL) 72 % (50-80)
[2017-02-23] MEDS ORDERED: Potassium Chloride 20 mEq 20 MEQ in Premix 1 BAG IV ONE (08:07)
--- NOTE | 2017-02-23 08:11 | PDOC(PROG) ---
Date and Time of Service: 02/23/2017 8:10 AM Interval History: Subjective Feels better compared to when he came in. The diarrhea seems to be less and the stool seems to be more formed now. No abdominal pain. He did have some indigestion he said yesterday after he took the antidiarrhea pill but is gone today. No shortness of breath. Objective : Data - Labs CBC and BMP: 02/23/17 04:40 02/23/17 04:40 Labs - Last 24 Hours: Laboratory Results 02/22/17 02/23/17 Range/Units 04:00 04:40 WBC 6.26 2.12 L (4.8-10.8) 10^3/uL RBC 2.30 L 2.26 L (4.70-6.10) 10^6/uL Hgb 8.2 L 7.9 L (14.0-18.0) g/dL Hct 24.7 L 24.2 L (42.0-52.0) % MCV 107.4 H 107.1 H (80-90) FL MCH 35.7 H 35.0 H (27-31) PG MCHC 33.2 32.6 L (33-37) g/dL RDW Std Deviation 89.3 H 87.8 H (39-50) fL RDW Coeff of Antonio 25.5 H 25.0 H (11.5-14.5) % Plt Count 46 L 127 L (140-350) 10*3/uL MPV 11.5 10.9 (7.4-12.2) FL Neutrophils % (Manual) 91 H 72 (50-80) % Band Neutrophils % 1 0 (0-10) % Lymphocytes % (Manual) 7 L 20 (10-50) % Monocytes % (Manual) 1 5 (0-12) % Eosinophils % (Manual) 0 2 (0-8) % Basophils % (Manual) 0 1 (0-1) % Metamyelocytes % 0 Not Reportable % Myelocytes % 0 Not Reportable % Promyelocytes % 0 Not Reportable % Blast Cells 0 Not Reportable (0-1) % WBC Morphology Comment Normal morphology Normal morphology (NORM) Plt Morphology Comment See comments Normal morphology (NORM) RBC Morph Comment See comments See comments (NORM) Sodium 139 (135-145) meq/L Potassium 3.3 L (3.8-5.2) meq/L Chloride 115 H (98-112) meq/L Carbon Dioxide 19 L (23-33) meq/L Anion Gap 5 (5-20) BUN 12 (7-22) mg/dL Creatinine 0.6 L (0.70-1.50) mg/dL Estimated GFR > 60 (>60 ml/min/1.73m(2)) BUN/Creatinine Ratio 20.00 (6-20) Glucose 78 (78-110) mg/dL Calculated Osmolality 286.0 (267-292) mOsm/kg Calcium 7.9 L (8.7-10.7) mg/dL Magnesium 2.0 (1.6-2.4) mg/dL Total Bilirubin 3.8 H (0.3-1.2) mg/dL AST 58 H (21-57) IU/L ALT 75 H (21-72) IU/L Alkaline Phosphatase 865 H (38-126) IU/L Total Protein 4.3 L (6.1-8.0) g/dL Albumin 1.9 L (3.5-4.8) g/dL Globulin 2.4 L (2.50-4.10) g/dL Albumin/Globulin Ratio 0.70 L (1.3-2.0) mg/g Objective : Exam - General General Appearance: No Acute Distress, Cooperative Additional General Exam Details: Cachectic - Head Head Exam: Normal Inspection - Eye Eye Exam: Normal Appearance - ENT ENT Exam: Normal Exam - Neck Neck Exam: Normal Inspection - Respiratory Respiratory Exam: Clear to Auscultation - Bilaterally - Cardiovascular Cardiovascular Exam: RRR - GI/Abdominal GI/Abdominal Exam: Normal Bowel Sounds, Non Tender, Non Distended, Soft Additional GI/Abdominal Exam Details: Colostomy in place - Rectal Rectal Exam: Deferred - External Exam: Deferred - Extremities Extremities Exam: Normal Inspection - Back Back Exam: Normal Inspection - Neurological Neurological Exam: Alert, Oriented x 3, CN II-XII Intact, Moves All Extremities Equally - Psychiatric Psychiatric Exam: Normal Affect - Integumentary Integumentary Exam: Pallor Assessment and Plan - Patient Problems (1) Diarrhea Current Visit: No Status: Acute Comment: Seems to be improving, continue current antibiotics. I think we'll stop the IV fluid. His white count is coming down will have this repeated tomorrow. (2) Colon cancer Current Visit: No Status: Acute Comment: We'll speak with the oncologist and let him know that he is in the hospital. (3) History of DVT of lower extremity Current Visit: Yes Status: Acute Comment: Continue Xarelto (4) Hypomagnesemia Current Visit: Yes Status: Acute Comment: This is improved (5) Hypokalemia Current Visit: No Status: Acute Comment: Improving continue replacement
--- NOTE | 2017-02-23 08:47 | DI ---
CHEST X-RAY WITH ABDOMINAL SERIES, 02/21/2017 6:36 PM : Clinical History: Diarrhea. Metastatic liver disease. PA CHEST X-RAY: Previous Exam: 12/27/2016. There is no acute soft tissue or bony abnormality. There is an indwelling port inserted from the left subclavian route and the catheter tip is in the superior vena cava. There is no free air under the d iaphragms. Heart size is normal. Lungs are clear. Mediastinal structures are normal. There are no pul monary nodules. Reading: Normal PA chest x-ray. ABDOMINAL SERIES: Previous Exam: None at this facility. KUB and upright abdomen films are submitted. There are no soft tissue or bony abnormalities. Bowel ga s pattern, psoas margins, and flank stripes are normal. There is no free air or fluid. There are calc ifications in the gallbladder consistent with cholelithiasis. 3 stents have been inserted into the co mmon duct draining both the right and left lobes. An IVC filter is present in the filter is located b etween L2 and L3. Readin. Normal abdominal series. There is an IVC filter and there are multiple stents in the common duct. 2. Cholelithiasis.
[2017-02-23] MEDS: METOPROLOL SUCCINATE 25 MG SR 24H TABLET PO SCH ×2 (08:54→09:01)
[2017-02-23] MEDS: Multivitamin Tab 1 TAB PO SCH (08:55)
[2017-02-23] MEDS: Rivaroxaban Tab 10 MG TAB PO SCH (08:55)
[2017-02-23] MEDS: Diphenoxylate/Atropine 2.5/0.025 mg Tab PO SCH ×4 (08:55→20:49)
[2017-02-23] MEDS ORDERED: Filgrastim Inj 480 MCG/0.8 ML SYRINGE SUBCUT ONE (09:45)
[2017-02-23] MEDS ORDERED: HEPARIN 500 UNIT/5 ML SYRINGE FOR CENTRAL LINE IVP ONE ×2 (10:02→14:12)
[2017-02-23] MEDS ORDERED: HEPARIN 500 UNIT/5 ML SYRINGE FOR CENTRAL LINE IVP PRN (14:16)
[2017-02-23] MEDS: NORMAL SALINE 10 ML SYRINGE FLUSH IVP PRN ×2 (14:18→20:53)
[2017-02-23] MEDS: Sodium Chloride 0.9% 1,000 ML with Multivitamin Inj 10 ML, Thiamine Inj 100 MG, Folic A... IV SCH ×5 (20:49)
[2017-02-24] MEDS: metroNIDAZOLE 500mg (Premix) 500 MG in Premix 1 BAG IV SCH ×3 (00:45→16:50)
[2017-02-24] MEDS: Cefepime Inj 2 GM in Sodium Chloride 0.9% 100 ML IV SCH (04:02)
[2017-02-24 05:14] LABS: HEMATOCRIT 25.4 % (42.0-52.0); HEMOGLOBIN 8.4 g/dL (14.0-18.0); MEAN CORPUSCULAR HEMOGLOBIN 35.3 PG (27-31); MEAN CORPUSCULAR HGB CONC 33.1 g/dL (33-37); MEAN CORPUSCULAR VOLUME 106.7 FL (80-90); MEAN PLATELET VOLUME 11.1 FL (7.4-12.2); RED BLOOD COUNT 2.38 10^6/uL (4.70-6.10)
[2017-02-24 05:23] LABS: BLOOD UREA NITROGEN 12 mg/dL (7-22); EST GLOMERULAR FILTRATION > 60 (>60 ml/min/1.73m(2)); SERUM ALBUMIN 1.9 g/dL (3.5-4.8)
[2017-02-24 05:48] LABS: PLATELET MORPHOLOGY COMMENT NORMAL MORPHOLOGY (NORM); RBC MORPHOLOGY COMMENT SEE COMMENTS (NORM); WBC MORPHOLOGY COMMENT NORMAL MORPHOLOGY (NORM)
[2017-02-24 05:49] LABS: BAND NEUTROPHILS % 17 % (0-10); BASOPHILS % (MANUAL) 1 % (0-1); EOSINOPHILS % (MANUAL) 1 % (0-8); LYMPHOCYTES % (MANUAL) 8 % (10-50); MONOCYTES % (MANUAL) 2 % (0-12); NEUTROPHILS % (MANUAL) 71 % (50-80)
[2017-02-24] MEDS ORDERED: Potassium Chloride 20 mEq 20 MEQ in Premix 1 BAG IV ONE (07:53)
--- NOTE | 2017-02-24 08:02 | PDOC(PROG) ---
Date and Time of Service: 02/24/2017 7:57 AM Interval History: Subjective Diarrhea seems to be less than before. No abdominal pain. No shortness of breath. He is not eating well. He said he doesn't have the appetite. Objective : Data - Labs CBC and BMP: 02/24/17 05:09 02/24/17 05:09 Labs - Last 24 Hours: Laboratory Results 02/24/17 Range/Units 05:09 WBC 5.04 (4.8-10.8) 10^3/uL RBC 2.38 L (4.70-6.10) 10^6/uL Hgb 8.4 L (14.0-18.0) g/dL Hct 25.4 L (42.0-52.0) % MCV 106.7 H (80-90) FL MCH 35.3 H (27-31) PG MCHC 33.1 (33-37) g/dL RDW Std Deviation 87.1 H (39-50) fL RDW Coeff of Antonio 24.9 H (11.5-14.5) % Plt Count 146 (140-350) 10*3/uL MPV 11.1 (7.4-12.2) FL Neutrophils % (Manual) 71 (50-80) % Band Neutrophils % 17 H (0-10) % Lymphocytes % (Manual) 8 L (10-50) % Monocytes % (Manual) 2 (0-12) % Eosinophils % (Manual) 1 (0-8) % Basophils % (Manual) 1 (0-1) % Metamyelocytes % Not Reportable Myelocytes % Not Reportable Promyelocytes % Not Reportable Blast Cells Not Reportable WBC Morphology Comment Normal morphology (NORM) Plt Morphology Comment Normal morphology (NORM) RBC Morph Comment See comments (NORM) Sodium 138 (135-145) meq/L Potassium 3.0 L (3.8-5.2) meq/L Chloride 117 H (98-112) meq/L Carbon Dioxide 18 L (23-33) meq/L Anion Gap 3 L (5-20) BUN 12 (7-22) mg/dL Creatinine 0.6 L (0.70-1.50) mg/dL Estimated GFR > 60 (>60 ml/min/1.73m(2)) BUN/Creatinine Ratio 20.00 (6-20) Glucose 80 (78-110) mg/dL Calculated Osmolality 284.0 (267-292) mOsm/kg Calcium 8.0 L (8.7-10.7) mg/dL Total Bilirubin 3.9 H (0.3-1.2) mg/dL AST 55 (21-57) IU/L ALT 71 (21-72) IU/L Alkaline Phosphatase 859 H (38-126) IU/L Total Protein 4.3 L (6.1-8.0) g/dL Albumin 1.9 L (3.5-4.8) g/dL Globulin 2.4 L (2.50-4.10) g/dL Albumin/Globulin Ratio 0.70 L (1.3-2.0) mg/g Objective : Exam - General General Appearance: No Acute Distress, Cooperative Additional General Exam Details: Cachectic - Head Head Exam: Normal Inspection, Atraumatic - Eye Eye Exam: Normal Appearance - ENT ENT Exam: Normal Exam - Neck Neck Exam: Normal Inspection - Respiratory Respiratory Exam: Clear to Auscultation - Bilaterally - Cardiovascular Cardiovascular Exam: RRR - GI/Abdominal GI/Abdominal Exam: Normal Bowel Sounds, Non Tender, Non Distended, Soft Additional GI/Abdominal Exam Details: Colostomy in place. - Rectal Rectal Exam: Deferred - External Exam: Deferred - Extremities Extremities Exam: Normal Inspection - Back Back Exam: Normal Inspection - Psychiatric Psychiatric Exam: Normal Affect Assessment and Plan - Patient Problems (1) Diarrhea Current Visit: No Status: Acute Comment: Seems to be improving. I did speak with the oncologist yesterday he said the patient is getting Irinotecan and that can cause the diarrhea. But he agrees with antibiotic treatment. Patient wants to go home we'll walk him around and see how he feels will check his oxygen decide about possible discharge. (2) Colon cancer Current Visit: No Status: Acute Comment: If his discharge He'll follow-up with oncologist the said she will call them today. (3) History of DVT of lower extremity Current Visit: Yes Status: Acute Comment: Continue Xarelto (4) Hypomagnesemia Current Visit: Yes Status: Acute Comment: This is replaced (5) Hypokalemia Current Visit: No Status: Acute Comment: Potassium still low will continue replacement
[2017-02-24] MEDS: Rivaroxaban Tab 10 MG TAB PO SCH (08:37)
[2017-02-24] MEDS: METOPROLOL SUCCINATE 25 MG SR 24H TABLET PO SCH (08:37)
[2017-02-24] MEDS: Multivitamin Tab 1 TAB PO SCH (08:37)
[2017-02-24] MEDS: NORMAL SALINE 10 ML SYRINGE FLUSH IVP PRN ×4 (08:38→23:53)
[2017-02-24] MEDS: Pantoprazole Inj 40 MG in Normal Saline Flush 10 ML IVP SCH (11:48)
--- NOTE | 2017-02-24 11:52 | PTI REPORT ---
Thank you for the referral of Johnson Valerio. He was seen on 02/24/17 for an inpatient evaluation secondary to weakness secondary to cancer treatment. SUBJECTIVE: The patient is a 71-year-old male. The patient says he's fatigued; he has not been up out of his bed much. He states he would like to get up because he knows it is good for him. PAST MEDICAL HISTORY: Past medical history can be found in the patient's medical record. OBJECTIVE FINDINGS: General observations: The patient had negative Zaynab's signs bilaterally, one plus dorsal/pedal pulses, and non pitting min edema in bilateral lower extremities. The patient was found on two liters of humidified oxygen delivered via nasal cannula which the patient states he also uses at home but un -humidified. Range of motion: Range of motion throughout bilateral lower extremities is within functional limits. Strength: Manual muscle testing revealed strength of 4-/5 in knee flexion/ extension, dorsiflexion/plantarflexion, and hip abduction/adduction bilaterally. Hip flexion is 3+/5 bilaterally. Transfers: The patient is able to transfer from sit to stand with min assist to single-axis cane/walking stick. Ambulation: The patient was able to ambulate 150 feet with S and single axis walking stick with one self selected standing rest break secondary to shortness of breath. The patient was able to negotiate three stairs with one hand rail and supervision. Balance: The patient demonstrates good static and dynamic sitting balance, fair plus dynamic standing balance, and good static standing balance. ASSESSMENT: The patient has subjective and objective findings consistent with generalized deconditioning and would benefit from continued skilled care at this time. Short-Term Goals: To be met by discharge from inpatient: Patient will be able to ambulate 150 feet with self selected standing or seated rest breaks with least restrictive assistive device. Patient will be able to demonstrate 4/5 bilateral lower extremity strength throughout. Patient will be able to demonstrate good static balance and dynamic standing balance. Long-Term Goals: To be met following discharge from inpatient: Patient will be able to ambulate 300 feet with least restrictive assistive device and supervision for community ambulation. Patient will be able to demonstrate 4+/5 bilateral lower extremity strength for carryover for gait and transfer safety. TREATMENT PLAN: Patient will be seen B.I.D during the week and one time per day over the weekend as an inpatient to address the above goals and objectives. INITIAL TREATMENT: Treatment today consisted of the initial evaluation consisting of range of motion, manually resisted activities, ambulation, and stair negotiation with single-axis cane/walking stick and assist to supervision. RAPHAEL
--- NOTE | 2017-02-24 15:03 | OTI REPORT ---
Thank you for the referral of Johnson Valerio. He was seen on 02/24/17 for an occupational therapy inpatient evaluation secondary to weakness. SUBJECTIVE: The patient is a 71-year-old male. The patient reports no pain at this time; however, he does report feeling very weak. The patient reports a history of cancer. His indicates that he was diagnosed in August of 2016. The patient also has a history of significant weight loss. The patient was admitted to [facility] on Thursday due to weakness. The patient currently is not on oxygen at home; however, the patient's reported that his oxygen saturation dropped throughout the night and he is currently on two liters of oxygen. The patient and his live in [place]. At this time the patient does not work and does not have energy to complete any hobbies. They have three steps to the entrance of their home with one hand rail that the patient must be able to maneuver before returning home. Their bathroom set up includes a walk in shower; however, no shower chair is available. Prior to hospitalization the patient was able to stand within the shower without taking a rest break. They also have a comfort height toilet within the home and the patient was able to complete all toileting activities prior to hospitalization. Within the home the patient does not utilize any assistive device for mobility. At the time of initial evaluation the patient was using a standard cane. The patient has assistance with iADLs from his to include laundry, cooking, cleaning, groceries, and driving and was not completing any of these activities prior to hospitalization. The patient and the patient's report that the patient does not manage his ostomy bag and he does not want to in the future. The patient was able to complete most dressing tasks with rest breaks prior to hospitalization with some assistance as needed. PAST MEDICAL HISTORY: Past medical history can be found in the patient's medical record. OBJECTIVE FINDINGS: Pain: The patient reports no pain at this time. Range of motion: The patient demonstrates upper extremity range of motion bilaterally within functional limits. Strength: The patient demonstrates upper extremity strength as follows: shoulder abduction and flexion is 3-/5 bilaterally, elbow strength is 3-/5 bilaterally, wrist strength is 3/5 bilaterally, and hand strength is 3/5 bilaterally. Transfers: The patient performed sit to stand transfers with min assist. Ambulation: The patient is able to ambulate with use of a cane and contact guard assist for safety. Bed mobility: The patient performed bed mobility including sitting edge of bed to supine independently as well as rolling in bed and bridging independently. Endurance: The patient did become fatigued quickly and required rest breaks between sit to stands, moving from supine to sit, and after ambulation. ASSESSMENT: Problem List: Generalized weakness Upper extremity weakness Decreased activity tolerance Decreased ability to complete ADLs Lack of energy conservation skills Short-Term Goals: To be met by discharge from inpatient: Patient will increase activity tolerance to be able to complete entire ADL routine with one to two rest breaks and minimal assistance including bathing, grooming, and dressing. Patient will be able to complete lower extremity and upper extremity dressing with set up assistance. Patient will verbalize and use energy conservation techniques and work simplification techniques with ADLs. Patient will increase strength to 4/5 for upper extremities bilaterally. Long-Term Goals: To be met following discharge from inpatient: Patient will return home at prior level of functioning with enough strength to complete necessary activities of daily living safely. TREATMENT PLAN: Patient will be seen B.I.D during the week and one time per day over the weekend as an inpatient to address the above goals and objectives. INITIAL TREATMENT: Treatment today consisted of the initial evaluation activities only secondary to the patient's decreased activity tolerance. RAPHAEL
--- NOTE | 2017-02-24 16:34 | OT.PROG ---
Progress Note Progress Note: S: Pt reports that he is feeling okay this afternoon, with no complaints of pain. O: Pt seen from 15:45 to 16:05 following PT session with a focus on strengthening. Pt completed bilateral upper extremity strengthening to include shoulder flexion 2 X 1 min. and shoulder abduction 2 X 1 min. Pt also completed chair push-ups X 10 and sit to stands X 2 tolerating standing X 1 min. each attempt. Following therapy session, pt was left with O2 and call light in place. A: Pt was fatigued this afternoon and reported being fatigued following therapy session. However, pt did attempt all exercises. Pt continues to demonstrate a decreased activity tolerance and weakness with movement. P: Continue POC. KARO Ford/Markie
[2017-02-24] MEDS: Potassium Chloride Tab 10 MEQ TAB PO SCH ×2 (16:50→20:15)
[2017-02-25 05:01] LABS: HEMATOCRIT 26.1 % (42.0-52.0); HEMOGLOBIN 8.6 g/dL (14.0-18.0); MEAN CORPUSCULAR HEMOGLOBIN 34.7 PG (27-31); MEAN CORPUSCULAR VOLUME 105.2 FL (80-90); MEAN PLATELET VOLUME 10.9 FL (7.4-12.2); RED BLOOD COUNT 2.48 10^6/uL (4.70-6.10)
[2017-02-25 05:14] LABS: BLOOD UREA NITROGEN 13 mg/dL (7-22); BUN/CREATININE RATIO 18.57 (6-20); CALCIUM 8.2 mg/dL (8.7-10.7); EST GLOMERULAR FILTRATION > 60 (>60 ml/min/1.73m(2))
[2017-02-25 05:25] LABS: PLATELET MORPHOLOGY COMMENT SEE COMMENTS (NORM); RBC MORPHOLOGY COMMENT SEE COMMENTS (NORM); WBC MORPHOLOGY COMMENT NORMAL MORPHOLOGY (NORM)
[2017-02-25 05:26] LABS: BAND NEUTROPHILS % 6 % (0-10); BASOPHILS % (MANUAL) 0 % (0-1); EOSINOPHILS % (MANUAL) 0 % (0-8); LYMPHOCYTES % (MANUAL) 5 % (10-50); MONOCYTES % (MANUAL) 3 % (0-12); NEUTROPHILS % (MANUAL) 86 % (50-80)
[2017-02-25] MEDS: Potassium Chloride Tab 10 MEQ TAB PO SCH (08:00)
[2017-02-25] MEDS: Rivaroxaban Tab 10 MG TAB PO SCH (08:00)
[2017-02-25] MEDS: NORMAL SALINE 10 ML SYRINGE FLUSH IVP PRN (08:00)
[2017-02-25] MEDS: Multivitamin Tab 1 TAB PO SCH (08:00)
[2017-02-25] MEDS: METOPROLOL SUCCINATE 25 MG SR 24H TABLET PO SCH (08:00)
[2017-02-25] MEDS: Pantoprazole Inj 40 MG in Normal Saline Flush 10 ML IVP SCH (08:00)
[2017-02-25] MEDS: metroNIDAZOLE 500mg (Premix) 500 MG in Premix 1 BAG IV SCH ×2 (08:01)
--- NOTE | 2017-02-25 09:17 | PDOC(PROG) ---
Date and Time of Service: 02/25/2017 9:15 AM Interval History: Subjective Yesterday patient vomited after he took his pills so we kept another day. He didn't vomit today he tolerated boost. The stool seemed to be more formed. Objective : Data - Labs CBC and BMP: 02/25/17 04:35 02/25/17 04:35 Labs - Last 24 Hours: Laboratory Results 02/25/17 Range/Units 04:35 WBC 8.60 (4.8-10.8) 10^3/uL RBC 2.48 L (4.70-6.10) 10^6/uL Hgb 8.6 L (14.0-18.0) g/dL Hct 26.1 L (42.0-52.0) % MCV 105.2 H (80-90) FL MCH 34.7 H (27-31) PG MCHC 33.0 (33-37) g/dL RDW Std Deviation 85.5 H (39-50) fL RDW Coeff of Antonio 24.8 H (11.5-14.5) % Plt Count 91 L (140-350) 10*3/uL MPV 10.9 (7.4-12.2) FL Neutrophils % (Manual) 86 H (50-80) % Band Neutrophils % 6 (0-10) % Lymphocytes % (Manual) 5 L (10-50) % Monocytes % (Manual) 3 (0-12) % Eosinophils % (Manual) 0 (0-8) % Basophils % (Manual) 0 (0-1) % Metamyelocytes % Not Reportable Myelocytes % Not Reportable Promyelocytes % Not Reportable Blast Cells Not Reportable WBC Morphology Comment Normal morphology (NORM) Plt Morphology Comment See comments (NORM) RBC Morph Comment See comments (NORM) Sodium 140 (135-145) meq/L Potassium 3.1 L (3.8-5.2) meq/L Chloride 116 H (98-112) meq/L Carbon Dioxide 17 L (23-33) meq/L Anion Gap 7 (5-20) BUN 13 (7-22) mg/dL Creatinine 0.7 (0.70-1.50) mg/dL Estimated GFR > 60 (>60 ml/min/1.73m(2)) BUN/Creatinine Ratio 18.57 (6-20) Glucose 114 H (78-110) mg/dL Calculated Osmolality 290.0 (267-292) mOsm/kg Calcium 8.2 L (8.7-10.7) mg/dL Objective : Exam - General General Appearance: No Acute Distress Additional General Exam Details: Cachectic - Head Head Exam: Normal Inspection - Eye Eye Exam: Normal Appearance - ENT ENT Exam: Normal Exam - Neck Neck Exam: Normal Inspection - Respiratory Respiratory Exam: Clear to Auscultation - Bilaterally - Cardiovascular Cardiovascular Exam: RRR - GI/Abdominal GI/Abdominal Exam: Normal Bowel Sounds, Non Tender, Non Distended, Soft Additional GI/Abdominal Exam Details: Colostomy in place - External Exam: Deferred Assessment and Plan - Patient Problems (1) Diarrhea Current Visit: No Status: Acute Comment: Seems to be improving, we'll watch another hour or 2 if things remain stable we'll discharge him home. I did discuss with him the fact that his disease is advanced and the the other option that may consider is a hospice. He is not there yet. He said he'll go home and think about it and decide what to do. (2) Colon cancer Current Visit: No Status: Acute Comment: As I said he will decide whether we want to continue with chemotherapy or not. I did tell him that his disease is advanced. (3) History of DVT of lower extremity Current Visit: Yes Status: Acute Comment: Continue Xarelto (4) Hypokalemia Current Visit: No Status: Acute Comment: Potassium is still low continue replacement
[2017-02-25 09:33] LABS: PARASITIC EXAM FIN 1517 (())
--- NOTE | 2017-02-25 10:25 | DCSUMMARY ---
Hospitalization Summary Admit Date: 02/21/17 Discharge Date: 02/25/17 Hospital Course: Discharge diagnoses 1. Diarrhea secondary to colitis probably secondary to chemotherapy versus infectious etiology 2. Rectal carcinoma with liver metastasis 3. History of DVT status post IVC filter and on Xarelto 4. Cachexia 5. Status post biliary stents for relieve of obstruction secondary to cancer 6. Recent bacteremia was treated in [place] 7. Hypertension 8. Status post colostomy 9. Hypoxia Hospital course This is a 71 years old male with medical history significant for history of rectal carcinoma with liver metastasis status post colostomy, S/P biliary stents for biliary obstruction, who is getting chemotherapy that includes Irinotecan who presented to the hospital because of diarrhea that's been going on for few days the said that they were changing his bag like every hour to an hour and a half there was no abdominal pain, there was poor intake and because of that he came into the ER. He was given fluids and was admitted. He had a CT of the abdomen which showed possible colitis in addition did show stents in the biliary duct and liver metastasis. He was started on antibiotic as his white count was slightly elevated. And we continued with fluid. I saw him the next day he was making improvement we continued with the fluid and antibiotic therapy. I did speak with his oncologist the agreed with antibiotics but he thinks it's probably secondary to the chemotherapy that he was getting. His white count dropped at one point to 2.2 and we gave him GCSF his white count improved. Stool culture remained negative, blood culture remained negative , stool were negative for C. difficile. Eventually I did stop the vancomycin and cefepime. I however continued with the Flagyl. On the day of discharge he was doing better however he remained weak his intake was still poor his the stool output seemed to be more formed now. We did discharge him on potassium replacement and additional days of Flagyl. We did have difficulty replacing the patient potassium as he is having been chronic low potassium for a period of time issue was that the he was getting the anticholinergic so we were careful not giving him too much oral potassium as the anticholinergic may delaye absorption of potassium and causes mucosal ulceration, however I think as the diarrhea improved he is getting less anticholinergic and then we can increase his oral potassium. I did talk to him about his disease and I told him that his disease is advanced and told him the other alternative is to consider hospice he is still not there yet but he said he'll think about it. He was hypoxic also on the day of discharge so we discharge him on oxygen. I Did discuss with him the option of doing CT of the chest and he did not want it now. He will visit with his oncologist and discuss his options he said and he will decide whether he would continue with chemotherapy. Laboratory Results 02/21/17 02/22/17 02/22/17 Range/Units 18:30 04:00 07:25 WBC 11.46 H 6.26 (4.8-10.8) 10^3/uL RBC 2.54 L 2.30 L (4.70-6.10) 10^6/uL Hgb 9.7 L 8.2 L (14.0-18.0) g/dL Hct 26.9 L 24.7 L (42.0-52.0) % MCV 105.9 H 107.4 H (80-90) FL MCH 38.2 H 35.7 H (27-31) PG MCHC 36.1 33.2 (33-37) g/dL RDW Std Deviation 90.3 H 89.3 H (39-50) fL RDW Coeff of Antonio 25.8 H 25.5 H (11.5-14.5) % Plt Count 163 46 L (140-350) 10*3/uL MPV 11.3 11.5 (7.4-12.2) FL Neutrophils % (Manual) 91 H 91 H (50-80) % Band Neutrophils % 5 1 (0-10) % Lymphocytes % (Manual) 3 L 7 L (10-50) % Monocytes % (Manual) 0 1 (0-12) % Eosinophils % (Manual) 0 0 (0-8) % Basophils % (Manual) 1 0 (0-1) % Metamyelocytes % Not Reportable 0 Myelocytes % Not Reportable 0 Promyelocytes % Not Reportable 0 Blast Cells Not Reportable 0 WBC Morphology Comment Normal morphology Normal morphology (NORM) Plt Morphology Comment Normal morphology See comments (NORM) RBC Morph Comment See comments See comments (NORM) Sodium 138 140 (135-145) meq/L Potassium 3.3 L 3.1 L (3.8-5.2) meq/L Chloride 109 113 H (98-112) meq/L Carbon Dioxide 22 L 21 L (23-33) meq/L Anion Gap 7 6 (5-20) BUN 18 15 (7-22) mg/dL Creatinine 0.7 0.6 L (0.70-1.50) mg/dL Estimated GFR > 60 > 60 (>60 ml/min/1.73m(2)) BUN/Creatinine Ratio 25.71 H 25.00 H (6-20) Glucose 144 H 105 (78-110) mg/dL Calculated Osmolality 290.0 290.0 (267-292) mOsm/kg Lactic Acid 2.3 H (0.70-2.10) MMOL/L Calcium 8.7 7.9 L (8.7-10.7) mg/dL Magnesium 1.5 L (1.6-2.4) mg/dL Total Bilirubin 4.7 H 4.0 H (0.3-1.2) mg/dL AST 58 H 61 H (21-57) IU/L ALT 85 H 73 H (21-72) IU/L Alkaline Phosphatase 1070 H 840 H (38-126) IU/L Total Protein 5.2 L 4.6 L (6.1-8.0) g/dL Albumin 2.5 L 2.1 L (3.5-4.8) g/dL Globulin 2.7 2.5 (2.50-4.10) g/dL Albumin/Globulin Ratio 0.90 L 0.80 L (1.3-2.0) mg/g Specimen Type Pending Stool Rotavirus Antigen Pending Stool Norovirus Ag Pending Parasite Exam Fin 1517 (()) Miscellaneous Test Pending Miscellaneous Test 2 Pending 02/23/17 02/24/17 02/25/17 Range/Units 04:40 05:09 04:35 WBC 2.12 L 5.04 8.60 (4.8-10.8) 10^3/uL RBC 2.26 L 2.38 L 2.48 L (4.70-6.10) 10^6/uL Hgb 7.9 L 8.4 L 8.6 L (14.0-18.0) g/dL Hct 24.2 L 25.4 L 26.1 L (42.0-52.0) % MCV 107.1 H 106.7 H 105.2 H (80-90) FL MCH 35.0 H 35.3 H 34.7 H (27-31) PG MCHC 32.6 L 33.1 33.0 (33-37) g/dL RDW Std Deviation 87.8 H 87.1 H 85.5 H (39-50) fL RDW Coeff of Antonio 25.0 H 24.9 H 24.8 H (11.5-14.5) % Plt Count 127 L 146 91 L (140-350) 10*3/uL MPV 10.9 11.1 10.9 (7.4-12.2) FL Neutrophils % (Manual) 72 71 86 H (50-80) % Band Neutrophils % 0 17 H 6 (0-10) % Lymphocytes % (Manual) 20 8 L 5 L (10-50) % Monocytes % (Manual) 5 2 3 (0-12) % Eosinophils % (Manual) 2 1 0 (0-8) % Basophils % (Manual) 1 1 0 (0-1) % Metamyelocytes % Not Reportable Not Reportable Not Reportable Myelocytes % Not Reportable Not Reportable Not Reportable Promyelocytes % Not Reportable Not Reportable Not Reportable Blast Cells Not Reportable Not Reportable Not Reportable WBC Morphology Comment Normal morphology Normal morphology Normal morphology (NORM) Plt Morphology Comment Normal morphology Normal morphology See comments ( NORM) RBC Morph Comment See comments See comments See comments (NORM) Sodium 139 138 140 (135-145) meq/L Potassium 3.3 L 3.0 L 3.1 L (3.8-5.2) meq/L Chloride 115 H 117 H 116 H (98-112) meq/L Carbon Dioxide 19 L 18 L 17 L (23-33) meq/L Anion Gap 5 3 L 7 (5-20) BUN 12 12 13 (7-22) mg/dL Creatinine 0.6 L 0.6 L 0.7 (0.70-1.50) mg/dL Estimated GFR > 60 > 60 > 60 (>60 ml/min/1.73m(2)) BUN/Creatinine Ratio 20.00 20.00 18.57 (6-20) Glucose 78 80 114 H (78-110) mg/dL Calculated Osmolality 286.0 284.0 290.0 (267-292) mOsm/kg Lactic Acid (0.70-2.10) MMOL/L Calcium 7.9 L 8.0 L 8.2 L (8.7-10.7) mg/dL Magnesium 2.0 (1.6-2.4) mg/dL Total Bilirubin 3.8 H 3.9 H (0.3-1.2) mg/dL AST 58 H 55 (21-57) IU/L ALT 75 H 71 (21-72) IU/L Alkaline Phosphatase 865 H 859 H (38-126) IU/L Total Protein 4.3 L 4.3 L (6.1-8.0) g/dL Albumin 1.9 L 1.9 L (3.5-4.8) g/dL Globulin 2.4 L 2.4 L (2.50-4.10) g/dL Albumin/Globulin Ratio 0.70 L 0.70 L (1.3-2.0) mg/g Specimen Type Stool Rotavirus Antigen Stool Norovirus Ag Parasite Exam (()) Miscellaneous Test Miscellaneous Test 2 Discharge diagnoses Diet regular Activity as started Medications Home Medications Medication Instructions Recorded Confirmed Type Rivaroxaban [Xarelto] 20 mg PO DAILY 10/29/16 02/21/17 History Diphenoxylate HCl/Atropine 1 tab PO Q2H PRN PRN 02/21/17 02/21/17 History [Lomotil 2.5-0.025 mg Tablet] Multivitamin [Multi-Day Vitamins] 1 tab PO DAILY 02/21/17 02/21/17 History Potassium Chloride [Klor-Con] 20 meq PO BID #14 tab 02/24/17 Rx Metoprolol Succinate [Toprol XL] 12.5 mg PO DAILY #1 tab 02/25/17 Rx metroNIDAZOLE Tab [Flagyl Tab] 500 mg PO TID #12 tab 02/25/17 Rx Follow-up with his oncologist condition at discharge was stable for discharge but overall prognosis is poor Exam - Vitals Vital Signs: Vital Signs Temperature 98.2 F Temperature Source Temporal Artery Scan Pulse Rate [Pulse Oximeter] 78 Respiratory Rate 20 Blood Pressure [Right Arm] 104/58 Blood Pressure [Left Arm] 101/62 Pulse Ox 91 Oxygen Flow Rate 3 Oxygen Delivery Method Nasal Cannula Height 6 ft 2 in Weight 146 lb 11.2 oz Patient Problems - Patient Problem List (1) Diarrhea Status: Acute (2) Colon cancer Status: Acute (3) History of DVT of lower extremity Status: Acute (4) Hypokalemia Status: Acute
--- NOTE | 2017-02-25 11:31 | PT PM DAY ---
Diagnosis : Weakness PM - Physical Therapy S: The patient states this morning he had a hard time walking due to his balance and he states he has just been in bed too long. He states he did better later in the morning and he wants to get out of bed this afternoon to keep it going. O: The patient was seen this afternoon for transfer training and ambulation. The patient needed minimal assist of one to transfer from supine to sit and minimal assist of one to stand. He was a little off balance at first. The patient does use a cane. He did ambulate well x200 feet and was able to do four or five stairs at his pace. The patient did need physical assist for balance on an occasion or two only during that entire event. A: If the patient is still here in the morning, it would be good to bring him down to the department for a little more aggressive activity. P: Continue seeing patient BID during the week and one time per day over the weekend until discharge. RAPHAEL
[2017-02-25 12:21] LABS: SPECIMEN SOURCE stool (())
[2017-02-25 13:36] VITALS: RESP 18; TEMP 98
--- NOTE | 2017-02-26 14:18 | OT AM DAY ---
Diagnosis : Weakness AM - Occupational Therapy S: The patient states he thinks he is going home, but he is going home on hospice. The patient was accompanied by a family member. O: The patient was seen in his room. He required min assist to transfer from supine to edge of bed. He did complete lower extremity dressing with min assist and upper extremity dressing with min assist. He stood up x3 to orient himself and then continued to complete functional transfer approximately 300 feet with zero falls. We did maintain contact guard assist for safety at all times. The patient returned to his chair and was left upright with call light within reach and chair alarm on. A: The patient participated well. He was given recovery socks as swelling to his feet was present. P: Continue seeing patient BID during the week and one time per day over the weekend until discharge. RAPHAEL
== END 2017-02-25 13:55 | disposition home or self-care (01) | DRG 392 ==
LOC: ER 18:23 → MED/SURG 21:07
PROVIDERS: ADMIT Internal Medicine; ATTEND Internal Medicine
DX: K52.9 Noninfective gastroenteritis and colitis, unspecified (principal); C20 Malignant neoplasm of rectum; C78.7 Secondary malignant neoplasm of liver and intrahepatic bile duct; R64 Cachexia; I10 Essential (primary) hypertension; R09.02 Hypoxemia; Z93.3 Colostomy status; E87.6 Hypokalemia; D50.0 Iron deficiency anemia secondary to blood loss (chronic); E83.42 Hypomagnesemia
CPT/HCPCS: 74022; 74177; 80048; 80053; 83605; 83735; 85007; 87040; 87046; 87177; 87205; 87209; 87328; 87329; 87425; 87449; 87493; 87798; 94761; 96361; 96365; 96375; 97116; 97161; 97166; 97530; 99284; J0692; J2405; J3370; J3411; J3475; J3480; J3490; J7030; J7050